=== PATIENT | male | born 1950 | race Caucasian/White ===

== ENCOUNTER 2016-05-01 13:47 | Inpatient (IN) | payer SELFPAY ==
[~2016-05-01] VITALS: Ht 185.4 cm; Wt 96.1 kg
[2016-05-01] VITALS (7 sets, daily range): BP systolic 100–130; BP diastolic 57–78; PULSE 104–112; RESP 20–28; TEMP 98–101.8; O2SAT 95–98
[2016-05-01] MEDS ORDERED: SODIUM CHLORIDE 0.9% FLUSH 5 ML FLUSH IVF PRN (14:00)
[2016-05-01] MEDS ORDERED: SODIUM CHLOR 0.9% 1000 ML INJ 1,000 ML IV ONE ×3 (14:00→14:15)
[2016-05-01] MEDS ORDERED: methylPREDNISolone SOD SUCC 125 MG/2 ML VIAL IVP ONE (14:00)
[2016-05-01] MEDS: RESP: ALBUTEROL 2.5 MG/IPRATROPIUM 0.5 MG NEB (SCH) INH ×2 (14:00→14:09)
--- NOTE | 2016-05-01 14:13 | PD ---
HPI Chief Complaint: AMS Time Seen by Provider: 13:55 Travel History International Travel<30 days: No Contact w/Intl Traveler<30days: No History of Present Illness HPI Patient is a 47-year-old male, Alberto Betancourt, who presents to ER from [facility] from evaluation of altered mental status. As per EMS, they were called by bystanders as bystanders looked into patient's mobile home and saw patient on his couch unresponsive and also saw patient's father on the ground. When EMS arrived on scene, they reported that patient was unresponsive with a pulse ox of 75% and a blood pressure of 74/52. Reports that they started 2 IO lines and started IV fluids and put patient on a non-rebreather. Reports that patient only admitted to alcohol abuse - reports that he did not provide any information other than that. Reports that patient was hypotensive, tachypneic and hypoxic on scene. Patient arrives emergency room with a blood pressure of 130/78 and a pulse ox of 97% on a nonrebreather. Patient reports that he is an alcoholic, reports that he did drink 2-3 beers today. Patient is alert to person at this time, cannot provide history of present illness. PFSH Past Surgical History Surgical History: No Previous Surgery Social History Alcohol Use: Yes Tobacco Use: Yes Allergies-Medications (Allergen,Severity, Reaction): Coded Allergies: No Known Allergies (Unverified , 05/01/16) Review of Systems ROS Limitations: Altered Mental Status General / Constitutional: No: Fever Eyes: No: Visual changes HENT: No: Headaches Cardiovascular: No: Chest Pain or Discomfort Respiratory: No: Shortness of Breath Gastrointestinal: No: Abdominal Pain Genitourinary: No: Dysuria Musculoskeletal: No: Pain Skin: No Rash Neurologic: No: Weakness Psychiatric: No: Depression Endocrine: No: Polydipsia Hematologic/Lymphatic: No: Easy Bruising Physical Exam Narrative GENERAL: moderate distress SKIN: Warm and dry. Patient jaundiced appearing HEAD: Atraumatic. Normocephalic. EYES: Pupils equal and round.positive for scleral icterus. No injection or drainage. ENT: No nasal bleeding or discharge. Mucous membranes pink and moist. NECK: Trachea midline. No JVD. CARDIOVASCULAR: Tachycardic. No murmur appreciated. RESPIRATORY: Increased accessory muscle use. Scattered wheezing. Breath sounds equal bilaterally. GASTROINTESTINAL: Abdomen soft, non-tender, nondistended. Hepatic and splenic margins not palpable. MUSCULOSKELETAL: No obvious deformities. No clubbing. No cyanosis. No edema. NEUROLOGICAL: Awake and alert. PSYCHIATRIC: Alert to person, patient confused Data Data Last Documented VS Vital Signs Date Time Temp Pulse Resp B/P Pulse Ox O2 Delivery O2 Flow Rate FiO2 05/01/16 14:06 Simple Mask 15 05/01/16 13:59 101.8 112 28 130/78 97 Orders Ammonia (05/01/16 13:55) Electrocardiogram (05/01/16 13:55) Complete Blood Count With Diff (05/01/16 13:55) Comprehensive Metabolic Panel (05/01/16 13:55) Prothrombin Time / Inr (Pt) (05/01/16 13:55) Act Partial Throm Time (Ptt) (05/01/16 13:55) Lactic Acid Sepsis Protocol (05/01/16 13:55) Magnesium (Mg) (05/01/16 13:55) Lipase (05/01/16 13:55) Ckmb (Isoenzyme) Profile (05/01/16 13:55) Troponin I (05/01/16 13:55) Urinalysis - C+S If Indicated (05/01/16 13:55) Influenzae A/B Antigen (05/01/16 13:55) Blood Culture (05/01/16 13:55) Chest, Single Ap (05/01/16 13:55) Arterial Blood Gas (Abg) (05/01/16 13:55) Blood Glucose (05/01/16 13:55) Ecg Monitoring (05/01/16 13:55) Iv Access Insert/Monitor (05/01/16 13:55) Cath For Specimen (05/01/16 13:55) Oximetry (05/01/16 13:55) Oxygen Administration (05/01/16 13:55) Ct Brain W/O Iv Contrast(Rout) (05/01/16 13:58) Drug Screen, Random Urine (05/01/16 13:58) Alcohol (Ethanol) (05/01/16 13:58) Salicylates (Aspirin) (05/01/16 13:58) Tylenol (Acetaminophen) (05/01/16 13:58) Sodium Chloride 0.9% Flush (Ns Flush) (05/01/16 14:00) Methylprednisolone So Succ Inj (Solumedr (05/01/16 14:00) Albuterol-Ipratropium Neb (Duoneb Neb) (05/01/16 14:00) Sodium Chlor 0.9% 1000 Ml Inj (Ns 1000 M (05/01/16 14:00) Sodium Chlor 0.9% 1000 Ml Inj (Ns 1000 M (05/01/16 14:00) Acetaminophen Supp (Tylenol Supp) (05/01/16 14:15) Sodium Chlor 0.9% 1000 Ml Inj (Ns 1000 M (05/01/16 14:15) Piperacil-Tazo 3.375 Gm Premix (Zosyn 3. (05/01/16 14:15) Vancomycin Inj (Vancomycin Inj) (05/01/16 14:15) Ct Thorax/ Chest Wo Iv Contras (05/01/16 ) Ct Abd/Pel W/O Iv Contrast (05/01/16 ) Influenzae A/B Antigen (05/01/16 15:36) Admit Order (Ed Use Only) (05/01/16 16:47) Labs Laboratory Tests Test 05/01/16 05/01/16 05/01/16 14:04 14:20 14:35 Blood Gas Puncture Site LT RADIAL Blood Gas Patient Temperature 98.6 Blood Gas HCO3 17 mmol/L Blood Gas Base Excess -6.1 mmol/L Blood Gas Oxygen Saturation 94 % Arterial Blood pH 7.44 Arterial Blood Partial 26 mmHg Pressure CO2 Arterial Blood Partial 86 mmHG Pressure O2 Arterial Blood Oxygen Content 15.1 Vol % Arterial Blood 1.5 % Carboxyhemoglobin Arterial Blood Methemoglobin 1.9 % Blood Gas Hemoglobin 11.4 G/DL Blood Gas Inspired Oxygen 21 % White Blood Count 9.2 TH/MM3 Red Blood Count 3.25 MIL/MM3 Hemoglobin 11.6 GM/DL Hematocrit 36.4 % Mean Corpuscular Volume 111.7 FL Mean Corpuscular Hemoglobin 35.6 PG Mean Corpuscular Hemoglobin 31.9 % Concent Red Cell Distribution Width 15.1 % Platelet Count 141 TH/MM3 Mean Platelet Volume 8.9 FL Neutrophils (%) (Auto) 75.7 % Lymphocytes (%) (Auto) 15.1 % Monocytes (%) (Auto) 8.6 % Eosinophils (%) (Auto) 0.1 % Basophils (%) (Auto) 0.5 % Neutrophils # (Auto) 7.0 TH/MM3 Lymphocytes # (Auto) 1.4 TH/MM3 Monocytes # (Auto) 0.8 TH/MM3 Eosinophils # (Auto) 0.0 TH/MM3 Basophils # (Auto) 0.0 TH/MM3 CBC Comment AUTO DIFF Differential Total Cells 100 Counted Neutrophils % (Manual) 72 % Band Neutrophils % 4 % Lymphocytes % 12 % Monocytes % 5 % Neutrophils # (Manual) 7.6 TH/MM3 Metamyelocytes 4 % Myelocytes 1 % Promyelocytes 2 % Nucleated Red Blood Cells 13 /100 WBC Differential Comment FINAL DIFF MANUAL Platelet Estimate LOW Platelet Morphology Comment NORMAL Ovalocytes 1+ Stomatocytes 3+ Prothrombin Time 21.2 SEC Prothromb Time International 1.9 RATIO Ratio Activated Partial 43.9 SEC Thromboplast Time Sodium Level 136 MEQ/L Potassium Level 4.6 MEQ/L Chloride Level 97 MEQ/L Carbon Dioxide Level 20.1 MEQ/L Anion Gap 19 MEQ/L Blood Urea Nitrogen 35 MG/DL Creatinine 1.39 MG/DL Estimat Glomerular Filtration 44 ML/MIN Rate Random Glucose 100 MG/DL Lactic Acid Level 6.4 mmol/L Calcium Level 8.1 MG/DL Magnesium Level 2.1 MG/DL Total Bilirubin 4.1 MG/DL Aspartate Amino Transf 136 U/L (AST/SGOT) Alanine Aminotransferase 152 U/L (ALT/SGPT) Alkaline Phosphatase 299 U/L Ammonia 81 MCMOL/L Total Creatine Kinase 78 U/L Troponin I 0.03 NG/ML Total Protein 5.0 GM/DL Albumin 2.2 GM/DL Lipase 185 U/L Salicylates Level LESS THAN 1.7 MG/DL Acetaminophen Level LESS THAN 2.0 MCG/ML Ethyl Alcohol Level LESS THAN 3 MG/DL Urine Color DARK-BROWN Urine Turbidity HAZY Urine pH 6.0 Urine Specific [place] 1.027 Urine Protein 30 mg/dL Urine Glucose (UA) TRACE mg/dL Urine Ketones TRACE mg/dL Urine Occult Blood SMALL Urine Nitrite NEG Urine Bilirubin MOD Urine Urobilinogen 2.0 MG/DL Urine Leukocyte Esterase NEG Urine RBC 8 /hpf Urine WBC 1 /hpf Urine Squamous Epithelial <1 /hpf Cells Microscopic Urinalysis Comment CATH-CULT NOT IND MDM Medical Decision Making Medical Screen Exam Complete: Yes Emergency Medical Condition: Yes Interpretation(s) EKG at 1500: Sinus tachycardia at 105 beats minute, QT/QTC 307/368, no acute ST or T-wave changes Vital Signs Date Time Temp Pulse Resp B/P Pulse Ox O2 Delivery O2 Flow Rate FiO2 05/01/16 14:06 Simple Mask 15 05/01/16 13:59 101.8 112 28 130/78 97 Laboratory Tests Test 05/01/16 05/01/16 05/01/16 14:04 14:20 14:35 Blood Gas Puncture Site LT RADIAL Blood Gas Patient Temperature 98.6 Blood Gas HCO3 17 mmol/L (22-26) Blood Gas Base Excess -6.1 mmol/L (-2-2) Blood Gas Oxygen Saturation 94 % (90-100) Arterial Blood pH 7.44 (7.380-7.420) Arterial Blood Partial 26 mmHg (38-42) Pressure CO2 Arterial Blood Partial 86 mmHG Pressure O2 (61-120) Arterial Blood Oxygen Content 15.1 Vol % (12.0-20.0) Arterial Blood 1.5 % (0-4) Carboxyhemoglobin Arterial Blood Methemoglobin 1.9 % (0-2) Blood Gas Hemoglobin 11.4 G/DL (12.0-16.0) Blood Gas Inspired Oxygen 21 % White Blood Count 9.2 TH/MM3 (4.0-11.0) Red Blood Count 3.25 MIL/MM3 (4.50-5.90) Hemoglobin 11.6 GM/DL (13.0-17.0) Hematocrit 36.4 % (39.0-51.0) Mean Corpuscular Volume 111.7 FL (80.0-100.0) Mean Corpuscular Hemoglobin 35.6 PG (27.0-34.0) Mean Corpuscular Hemoglobin 31.9 % Concent (32.0-36.0) Red Cell Distribution Width 15.1 % (11.6-17.2) Platelet Count 141 TH/MM3 (150-450) Mean Platelet Volume 8.9 FL (7.0-11.0) Neutrophils (%) (Auto) 75.7 % (16.0-70.0) Lymphocytes (%) (Auto) 15.1 % (9.0-44.0) Monocytes (%) (Auto) 8.6 % (0.0-8.0) Eosinophils (%) (Auto) 0.1 % (0.0-4.0) Basophils (%) (Auto) 0.5 % (0.0-2.0) Neutrophils # (Auto) 7.0 TH/MM3 (1.8-7.7) Lymphocytes # (Auto) 1.4 TH/MM3 (1.0-4.8) Monocytes # (Auto) 0.8 TH/MM3 (0-0.9) Eosinophils # (Auto) 0.0 TH/MM3 (0-0.4) Basophils # (Auto) 0.0 TH/MM3 (0-0.2) CBC Comment AUTO DIFF Differential Total Cells 100 Counted Neutrophils % (Manual) 72 % (16-70) Band Neutrophils % 4 % (0-6) Lymphocytes % 12 % (9-44) Monocytes % 5 % (0-8) Neutrophils # (Manual) 7.6 TH/MM3 (1.8-7.7) Metamyelocytes 4 % (0-1) Myelocytes 1 % (0-0) Promyelocytes 2 % (0-0) Nucleated Red Blood Cells 13 /100 WBC (0-0) Differential Comment FINAL DIFF MANUAL Platelet Estimate LOW (NORMAL) Platelet Morphology Comment NORMAL (NORMAL) Ovalocytes 1+ (NORMAL) Stomatocytes 3+ (NORMAL) Prothrombin Time 21.2 SEC (9.8-11.6) Prothromb Time International 1.9 RATIO Ratio Activated Partial 43.9 SEC Thromboplast Time (24.3-30.1) Sodium Level 136 MEQ/L (136-145) Potassium Level 4.6 MEQ/L (3.5-5.1) Chloride Level 97 MEQ/L (98-107) Carbon Dioxide Level 20.1 MEQ/L (21.0-32.0) Anion Gap 19 MEQ/L (5-15) Blood Urea Nitrogen 35 MG/DL (7-18) Creatinine 1.39 MG/DL (0.60-1.30) Estimat Glomerular Filtration 44 ML/MIN (>89) Rate Random Glucose 100 MG/DL (74-106) Lactic Acid Level 6.4 mmol/L (0.4-2.0) Calcium Level 8.1 MG/DL (8.5-10.1) Magnesium Level 2.1 MG/DL (1.5-2.5) Total Bilirubin 4.1 MG/DL (0.2-1.0) Aspartate Amino Transf 136 U/L (15-37) (AST/SGOT) Alanine Aminotransferase 152 U/L (12-78) (ALT/SGPT) Alkaline Phosphatase 299 U/L (45-117) Ammonia 81 MCMOL/L (11-32) Total Creatine Kinase 78 U/L (39-308) Troponin I 0.03 NG/ML (0.02-0.05) Total Protein 5.0 GM/DL (6.4-8.2) Albumin 2.2 GM/DL (3.4-5.0) Lipase 185 U/L (73-393) Salicylates Level LESS THAN 1.7 MG/DL (2.8-20.0) Acetaminophen Level LESS THAN 2.0 MCG/ML (10.0-30.0) Ethyl Alcohol Level LESS THAN 3 MG/DL (0-5) Urine Color DARK-BROWN (YELLW/STRAW) Urine Turbidity HAZY (CLEAR) Urine pH 6.0 (5.0-8.5) Urine Specific [place] 1.027 (1.002-1.035) Urine Protein 30 mg/dL (NEG-TRACE) Urine Glucose (UA) TRACE mg/dL (NEG) Urine Ketones TRACE mg/dL (NEG) Urine Occult Blood SMALL (NEG) Urine Nitrite NEG (NEG) Urine Bilirubin MOD (NEG) Urine Urobilinogen 2.0 MG/DL (LESS THAN 2.0) Urine Leukocyte Esterase NEG (NEG) Urine RBC 8 /hpf (0-3) Urine WBC 1 /hpf (0-5) Urine Squamous Epithelial <1 /hpf (0-5) Cells Microscopic Urinalysis Comment CATH-CULT NOT IND Last Impressions Head CT 05/01/16 1358 Signed Impressions: Service Date/Time: April 15:14 - CONCLUSION: Normal examination. Doe Foote MD Chest X-Ray 05/01/16 1355 Signed Impressions: Service Date/Time: April 14:28 - CONCLUSION: Normal examination. Numerous healed left-sided rib fractures. Doe Foote MD Chest CT 05/01/16 0000 Signed Impressions: Service Date/Time: April 15:18 - CONCLUSION: Some atelectasis both lung bases. Markedly fatty liver. Doe Foote MD Abdomen/Pelvis CT 05/01/16 0000 Signed Impressions: Service Date/Time: April 15:18 - CONCLUSION: The gallbladder hss markedly dense contents may be related to iodinated contrast. The liver is markedly fatty. No evidence of free fluid or solid organ mass. Bladder wall is mildly thickened without focal mass. Doe Foote MD Differential Diagnosis Hepatic encephalopathy, metabolic encephalopathy, COPD exacerbation, electrolyte abnormalities, intracranial hemorrhage, PE, pneumonia, influenza, acute hepatitis, seizure disorder, alcoholism, possible alcohol withdrawal seizures Narrative Course Patient is a 47-year-old male who presents to emergency room from home by [facility] for evaluation of change in mental status with tachypnea, tachycardia and hypoxemia. Patient currently alert and oriented to person, overall patient is confused. Patient is tachycardic, febrile, hypoxic - patient was placed on oxygen upon arrival to the emergency room, was also placed on a electromedical service engineer. Labs as well as lactic acid and ammonia level ordered. CT of the head ordered as well. Patient does have SIRS criteria at this time given this temperature of 101.8, tachycardia and increased respiratory rate, will give with IV fluids and start IV antibiotics Patient has been started on antibiotics. Patient does have a lactic acid of 6.4 , creatinine of 1.39-; pH 7.44 on ABG - lactic acidosis could be secondary to hypovolemia Patient also has an ammonia of 81 and he does have transaminitis - this could be secondary to alcoholic hepatitis Plan to admit patient to medicine service for further workup pt stable for floor, patient conversive, vital signs stable, will admit to medicine service primarily. Case reviewed with Dr. Garcia who accepts pt to service Critical Care Narrative Aggregate critical care time was 30 minutes. Time to perform other separately billable procedures was not included in the critical care time. My time did not include minutes spent treating any other patients simultaneously or on activities that did not directly contribute to the patient's treatment. The services I provided to this patient were to treat and/or prevent clinically significant deterioration that could result in: , decompensation, deterioration I provided critical care services requiring my management, as noted below: Chart data review, documentation time, medication orders and management, vital sign assessments/reviewing monitor data, ordering and reviewing lab tests, ordering and interpreting/reviewing x-rays and diagnostic studies, care of the patient and discussion of the patient with the admitting physicians. Sepsis Criteria SIRS Criteria (2 or more): Temp > 100.9 or < 96.8, Heart rate over 90, RR > 20 or PaCO2 < 32 Severe Sepsis (+one): Hypotension, Hypoperfusion Septic Shock Criteria: Lactic acid >=4 Criteria Outcome: Meets SIRS criteria Diagnosis Primary Impression: Lactic acidosis Additional Impressions: Transaminitis Hyperammonemia Renal insufficiency SIRS (systemic inflammatory response syndrome) impending delirium tremors Admitting Information Admitting Physician Requests: Admit Babs Cordova DO May 01, 2016 14:13 Admitting Information Admitting Physician Requests: Admit Babs Cordova DO May 01, 2016 14:13
[2016-05-01 14:15] LABS: BLOOD GAS BASE EXCESS -6.1 mmol/L (-2-2); BLOOD GAS CARBOXYHEMOGLOBIN 1.5 % (0-4); BLOOD GAS HCO3 17 mmol/L (22-26); BLOOD GAS METHEMOGLOBIN 1.9 % (0-2); BLOOD GAS O2 HGB SATURATION 94 % (90-100); BLOOD GAS OXYGEN CONTENT 15.1 Vol % (12.0-20.0); BLOOD GAS PCO2 26 mmHg (38-42); BLOOD GAS PO2 86 mmHG (61-120); BLOOD GAS TOTAL HGB 11.4 G/DL (12.0-16.0); CRITICAL VALUE NO; DRAW SITE LT RADIAL; FIO2 21 %; NUMBER OF ARTERIAL PUNCTURES 1; STAT YES; TEMP CORR TO 98.6; ULNAR PULSE PRESENT
[2016-05-01] MEDS ORDERED: ACETAMINOPHEN 650 MG SUPP RECTAL ONE (14:15)
[2016-05-01] MEDS ORDERED: PIPERACIL-TAZO 3.375 GM PREMIX 50 ML IV ONE (14:15)
[2016-05-01] MEDS ORDERED: VANCOMYCIN INJ 1,150 MG in SODIUM CHLOR 0.9% 250 ML INJ 250 ML IV ONE (14:15)
[2016-05-01 14:41] LABS: BASOPHIL % 0.5 % (0.0-2.0); EOSINOPHIL % 0.1 % (0.0-4.0); HEMATOCRIT 36.4 % (39.0-51.0); LYMPH % 15.1 % (9.0-44.0); LYMPHOCYTE # 1.4 TH/MM3 (1.0-4.8); MEAN CELL VOLUME 111.7 FL (80.0-100.0); MEAN CORPUSCULAR HEMOGLOBIN 35.6 PG (27.0-34.0); MEAN CORPUSCULAR HGB CONC 31.9 % (32.0-36.0); MONO % 8.6 % (0.0-8.0); NEUT % 75.7 % (16.0-70.0); PLATELET COUNT 141 TH/MM3 (150-450); RED BLOOD COUNT 3.25 MIL/MM3 (4.50-5.90); RED CELL DISTRIBUTION WIDTH 15.1 % (11.6-17.2); WHITE BLOOD COUNT 9.2 TH/MM3 (4.0-11.0)
[2016-05-01 14:43] LABS: HEMO FLAGS AUTO DIFF
[2016-05-01 14:55] LABS: APTT (PATIENT) 43.9 SEC (24.3-30.1); INTERNATIONAL NORMALIZED RATIO 1.9 RATIO; PROTHROMBIN TIME - PATIENT 21.2 SEC (9.8-11.6)
--- NOTE | 2016-05-01 15:12 | RADRPT ---
EXAM DATE/TIME: 05/01/2016 14:28 [facility] COMPARISON: No previous studies available for comparison. INDICATIONS : Patient is short of breath. MEDICAL HISTORY : None. SURGICAL HISTORY : None. ENCOUNTER: Initial ACUITY: 1 day PAIN SCORE: Non-responsive. LOCATION: chest FINDINGS: A single view of the chest demonstrates the lungs to be symmetrically aerated without evidence of mas s, infiltrate or effusion. The cardiomediastinal contours are unremarkable. Osseous structures are intact. CONCLUSION: Normal examination. Numerous healed left-sided rib fractures. Doe Foote MD on May 01, 2016 at 15:10 Board Certified Radiologist. This report was verified electronically.
[2016-05-01 15:22] LABS: BLOOD, URINE SMALL (NEG); COMMENT (UR) CATH-CULT NOT IND; CULTURE IF INDICATED CATH CULTURE NOT IND; GLUCOSE,URINE TRACE mg/dL (NEG); KETONE, URINE TRACE mg/dL (NEG); NITRITE,URINE NEG (NEG); SQUAMOUS EPITHELIAL CELL URINE <1 /hpf (0-5); URINE COLOR DARK-BROWN (YELLW/STRAW)
--- NOTE | 2016-05-01 15:25 | RADRPT ---
EXAM DATE/TIME: 05/01/2016 15:14 [facility] COMPARISON: No previous studies available for comparison. INDICATIONS : Found unresponsive. RADIATION DOSE: 53.98 CTDIvol (mGy) MEDICAL HISTORY : Non-responsive. SURGICAL HISTORY : Non-responsive. ENCOUNTER: Initial ACUITY: 1 day PAIN SCALE: Non-responsive LOCATION: cranial TECHNIQUE: Multiple contiguous axial images were obtained of the head. Using automated exposure control and adj ustment of the mA and/or kV according to patient size, radiation dose was kept as low as reasonably a chievable to obtain optimal diagnostic quality images. FINDINGS: There is marked central and cortical atrophy with dilatation of ventricular and sulcal spaces. There is no parenchymal hemorrhage, acute infarction or mass lesion identified. There are no extra-axial fluid collections appreciated. The posterior fossa is unremarkable with midline fourth ventricle. T he portion of the orbits and paranasal sinuses visualized are unremarkable. CONCLUSION: Normal examination. Doe Foote MD on May 01, 2016 at 15:23 Board Certified Radiologist. This report was verified electronically.
--- NOTE | 2016-05-01 15:36 | RADRPT ---
EXAM DATE/TIME: 05/01/2016 15:18 [facility] COMPARISON: No previous studies available for comparison. INDICATIONS : Found unresponsibe. RADIATION DOSE: 18.46 CTDIvol (mGy) MEDICAL HISTORY : Non-responsive. SURGICAL HISTORY : Non-responsive. ENCOUNTER: Initial ACUITY: 1 day PAIN SCALE: Non-responsive LOCATION: chest TECHNIQUE: Volumetric scanning of the chest was performed. Using automated exposure control and adjustment of t he mA and/or kV according to patient size, radiation dose was kept as low as reasonably achievable to obtain optimal diagnostic quality images. FINDINGS: LUNGS: There is no consolidation or pneumothorax other than minimal atelectasis both lung bases. No concern ing pulmonary nodule is visualized. PLEURAE: There is no pleural thickening or pleural effusion. MEDIASTINUM: The heart and great vessels demonstrate no acute abnormality. There is no mediastinal or hilar lymph adenopathy. AXILLAE: Within normal limits. No lymphadenopathy. MUSCULOSKELETAL: Within normal limits for patient age. Multiple healed left-sided rib fractures MISCELLANEOUS: The visualized upper abdominal organs demonstrate no acute abnormality. CONCLUSION: Some atelectasis both lung bases. Markedly fatty liver. Doe Foote MD on May 01, 2016 at 15:34 Board Certified Radiologist. This report was verified electronically.
[2016-05-01 15:39] LABS: ACETAMINOPHEN LESS THAN 2.0 MCG/ML (10.0-30.0); ALKALINE PHOSPHATASE 299 U/L (45-117); ALT (GPT) 152 U/L (12-78); ANION GAP 19 MEQ/L (5-15); AST (GOT) 136 U/L (15-37); BICARBONATE 20.1 MEQ/L (21.0-32.0); BLOOD UREA NITROGEN 35 MG/DL (7-18); CHLORIDE 97 MEQ/L (98-107); GLOMERULAR FILTRATION RATE 44 ML/MIN (>89); MAGNESIUM 2.1 MG/DL (1.5-2.5); POTASSIUM 4.6 MEQ/L (3.5-5.1); SODIUM (NA) 136 MEQ/L (136-145); TOTAL BILIRUBIN ADULT 4.1 MG/DL (0.2-1.0)
--- NOTE | 2016-05-01 15:39 | RADRPT ---
EXAM DATE/TIME: 05/01/2016 15:18 [facility] COMPARISON: No previous studies available for comparison. INDICATIONS : Found unresponsive. ORAL CONTRAST: No oral contrast ingested. RADIATION DOSE: 18.46 CTDIvol (mGy) MEDICAL HISTORY : Non-responsive. SURGICAL HISTORY : Non-responsive. ENCOUNTER: Initial ACUITY: 1 day PAIN SCALE: Non-responsive LOCATION: Bilateral lower quadrant TECHNIQUE: Volumetric scanning of the abdomen and pelvis was performed. Using automated exposure control and ad justment of the mA and/or kV according to patient size, radiation dose was kept as low as reasonably achievable to obtain optimal diagnostic quality images. FINDINGS: LOWER LUNGS: The visualized lower lungs are clear. LIVER: Homogeneously lower density without lesion. There is no dilation of the biliary tree. No calcified gallstones however the gallbladder contents are markedly dense. SPLEEN: Normal size without lesion. PANCREAS: Within normal limits. KIDNEYS: Normal in size and shape. There is no mass, stone, or hydronephrosis. ADRENAL GLANDS: Within normal limits. VASCULAR: There is no aortic aneurysm. BOWEL/MESENTERY: The stomach, small bowel, and colon demonstrate no acute abnormality. There is no free intraperitone al air or fluid. ABDOMINAL WALL: Within normal limits. RETROPERITONEUM: There is no lymphadenopathy. BLADDER: Questionable wall thickening without evidence of mass. REPRODUCTIVE: Within normal limits. INGUINAL: There is no lymphadenopathy or hernia. MUSCULOSKELETAL: Within normal limits for patient age. Left SI joint is fused CONCLUSION: The gallbladder hss markedly dense contents may be related to iodinated contrast. The liver is marke dly fatty. No evidence of free fluid or solid organ mass. Bladder wall is mildly thickened without f ocal mass. Doe Foote MD on May 01, 2016 at 15:35 Board Certified Radiologist. This report was verified electronically.
[2016-05-01 15:41] LABS: CREATINE KINASE 78 U/L (39-308)
[2016-05-01 15:44] LABS: BANDS 4 % (0-6); CORRECTED NUCLEATED RBC 13 /100 WBC (0-0); METAMYELOCYTES 4 % (0-1); MYELOCYTES 1 % (0-0); NEUTROPHIL # MANUAL DIFF 7.6 TH/MM3 (1.8-7.7); POLYS (SEG NEUTROPHILS) 72 % (16-70); PROMYELOCYTES 2 % (0-0); WBC DIFF SAMPLE 100
[2016-05-01 15:45] LABS: OVALOCYTES 1+ (NORMAL); PLATELET ESTIMATE SMEAR LOW (NORMAL); PLATELET MORPHOLOGY NORMAL (NORMAL); SCAN/DIFF FINAL DIFF MANUAL; STOMATOCYTES 3+ (NORMAL)
[2016-05-01 16:28] LABS: LACTIC ACID GHOST NOT REPORTABLE
[2016-05-01] MEDS ORDERED: SODIUM PHOSPHATE INJ 30 MMOL in SODIUM CHLOR 0.9% 250 ML INJ 240 ML IV PRN (17:00)
[2016-05-01] MEDS ORDERED: POTASSIUM CHLOR 40 MEQ PREMIX 100 ML IV PRN ×2 (17:00)
[2016-05-01] MEDS ORDERED: POTASSIUM PHOSPHATE MONOBASIC 500 MG TAB PO PRN (17:00)
[2016-05-01] MEDS ORDERED: POTASSIUM PHOSPHATE INJ 30 MMOL in SODIUM CHLOR 0.9% 250 ML INJ 250 ML IV PRN (17:00)
[2016-05-01] MEDS ORDERED: MAGNESIUM OXIDE 400 MG TAB PO PRN (17:00)
[2016-05-01] MEDS ORDERED: DEXTROSE 50% IN WATER 50 ML VIAL(D50) IV PUSH PRN (17:00)
[2016-05-01] MEDS ORDERED: POTASSIUM CHLOR 20 MEQ PREMIX 100 ML IV PRN ×2 (17:00)
[2016-05-01] MEDS ORDERED: MAGNESIUM SULFATE INJ 2 GM in SODIUM CHLORIDE 0.9% INJ 96 ML IV PRN (17:00)
[2016-05-01] MEDS ORDERED: POTASSIUM PHOSPHATE MONOBASIC 500 MG TAB PO/TUBE PRN (17:00)
[2016-05-01] MEDS ORDERED: MAGNESIUM SULFATE INJ 4 GM in SODIUM CHLORIDE 0.9% INJ 92 ML IV PRN (17:00)
[2016-05-01] MEDS ORDERED: POTASSIUM CL 40 MEQ/30 ML LIQ UDC PO/TUBE PRN ×2 (17:00)
[2016-05-01] MEDS: INSULIN NovoLIN REGULAR SUPPLEMENTAL SCALE SQ SCH (18:00)
--- NOTE | 2016-05-01 18:00 | HHI.HP ---
[facility] Service [facility] ([place], [place])ists Primary Care Physician No Primary Care Physician Admission Diagnosis Lactic acidosis, encephalopathy Diagnoses: Chief Complaint: AMS Travel History International Travel<30 Days: No Contact w/Intl Traveler <30 Da: No Traveled to Known Affected Are: No History of Present Illness 65-year-old male with alcohol and tobacco abuse but no diagnosed past medical history, presents as a Germain Stockton after being found down in his home today. Per EMS, 911 was called as bystanders looked into the patient's mobile home, saw the patient on his couch, unresponsive, and his father was also unresponsive on the floor. Upon EMS arrival, patient initially unresponsive with pulse ox 75%, BP 74/52. He was given IVF boluses and placed on nonrebreather. Since his arrival to the ER, his mentation has been waxing/waning, current he is awake, alert, but oriented to person/place only, not date/month/year. He reports his name is Marcelino Munroe . : 1950. He reports he came to the hospital because he kept falling down which started on Friday 04/28. Denies hitting his head. Denies loss of consciousness. Denies any headache or blurred vision. He reports some mild shortness of breath, but denies chest pain. Denies any nausea/ vomiting/abdominal pain/diarrhea constipation. He states he's been eating well prior to arrival. His last drink was Sunday 04/30, had 3-4 beers. The patient has no other medical complaints at this time. Review of Systems Constitutional: DENIES: Fever, Chills, Dizziness Endocrine: DENIES: Polydipsia, Polyuria, Polyphagia Eyes: DENIES: Blurred vision, Vision loss, Double Vision Ears, nose, mouth, throat: DENIES: Throat pain, Running Nose, Odynophagia Respiratory: COMPLAINS OF: Shortness of breath, DENIES: Cough, Sputum production Cardiovascular: DENIES: Chest pain, Palpitations, Lower Extremity Edema Gastrointestinal: DENIES: Abdominal pain, Constipation, Diarrhea, Nausea, Vomiting Genitourinary: DENIES: Urinary frequency, Urgency, Dysuria Musculoskeletal: DENIES: Joint pain, Back pain, Neck pain Integumentary: DENIES: Abnormal pigmentation, Pruritus, Rash Hematologic/lymphatic: DENIES: Bruising, Lymphadenopathy Immunologic/allergic: DENIES: Eczema, Urticaria Neurologic: DENIES: Abnormal gait, Headache, Localized weakness, Paresthesias Psychiatric: DENIES: Anxiety, Depression Past Family Social History Past Medical History Denies any diagnosed medical problems including heart disease, diabetes, HTN, HLD, liver/kidney problems. Past Surgical History Tonsillectomy Denies any other prior surgeries. Reported Medications Denies taking any medications on a regular basis. Allergies: Coded Allergies: No Known Allergies (Unverified , 05/01/16) Active Ordered Medications Current Medications Medications (Trade) Dose Ordered Sig/Pavel Route Start Time Stop Time Status Last Admin (D50w (Vial) Inj) 25 ml UNSCH PRN IV PUSH 05/01/16 17:00 (NovoLIN R SUPPLEMENTAL SCALE) 1 Q6HR SQ 05/01/16 18:00 Magnesium Oxide 800 mg 800 mg UNSCH PRN PO 05/01/16 17:00 Magnesium Sulfate 4 gm/Sodium Chloride 100 ml @ 50 mls/hr UNSCH PRN IV 05/01/16 17:00 Magnesium Sulfate 2 gm/Sodium Chloride 100 ml @ 50 mls/hr UNSCH PRN IV 05/01/16 17:00 Potassium Chloride 100 ml @ 50 mls/hr Q2H PRN IV 05/01/16 17:00 Potassium Chloride 100 ml @ 50 mls/hr Q2H PRN IV 05/01/16 17:00 Potassium Chloride 100 ml @ 50 mls/hr Q2H PRN IV 05/01/16 17:00 (KCl 40 Meq Premix Inj) 100 ml @ 25 mls/hr UNSCH PRN IV 05/01/16 17:00 (KCl 40 Meq/30 ml Liq) 40 meq UNSCH PRN PO/TUBE 05/01/16 17:00 (KCl 40 Meq/30 ml Liq) 40 meq UNSCH PRN PO/TUBE 05/01/16 17:00 (K-Phos) 2,000 mg Q4H PRN PO 05/01/16 17:00 Potassium Phosphate 2000 mg 2,000 mg UNSCH PRN PO/TUBE 05/01/16 17:00 Potassium Phosphate 30 mmol/ Sodium Chloride 260 ml @ 42 mls/hr UNSCH PRN IV 05/01/16 17:00 (Sodium Phosphate Inj/NS 250 ml Inj) 250 ml @ 42 mls/hr UNSCH PRN IV 05/01/16 17:00 Family History Mother with lymphoma, Father with CVA Social History Smokes tobacco 1.5-2 PPD since teenage years Drinks alcohol, usually 3-4 beers a day Denies any other illicit drug use. Lives with his father Ambulates independently. Physical Exam Vital Signs Vital Signs Date Time Temp Pulse Resp B/P Pulse Ox O2 Delivery O2 Flow Rate FiO2 05/01/16 14:06 Simple Mask 15 05/01/16 13:59 101.8 112 28 130/78 97 Physical Exam GENERAL: Well-nourished, well-developed unkempt appearing male patient in NAD. SKIN: Warm and dry. No rash. Jaundiced. HEAD: Normocephalic. Atraumatic. EYES: Pupils equal and round. +scleral icterus. No injection or drainage. ENT: No nasal bleeding or discharge. Mucous membranes dry. Chapped lips. Poor dentition. NECK: Supple. Trachea midline. CARDIOVASCULAR: Trachycardic, Regular rhythm. S1, S2 noted. No murmur appreciated. RESPIRATORY: No accessory muscle use. Clear to auscultation. Breath sounds equal bilaterally. GASTROINTESTINAL: Abdomen soft, non-tender, nondistended. Normoactive bowel sounds x4. MUSCULOSKELETAL: No obvious deformities. Extremities without clubbing, cyanosis , or edema. NEUROLOGICAL: Awake and alert, oriented to person/place but not time. No obvious cranial nerve deficits. Motor grossly within normal limits. Normal speech. PSYCHIATRIC: Appropriate mood and affect; insight and judgment fair to normal. Laboratory Laboratory Tests Test 05/01/16 05/01/16 05/01/16 14:04 14:20 14:35 Blood Gas Puncture Site LT RADIAL Blood Gas Patient Temperature 98.6 Blood Gas HCO3 17 Blood Gas Base Excess -6.1 Blood Gas Oxygen Saturation 94 Arterial Blood pH 7.44 Arterial Blood Partial 26 Pressure CO2 Arterial Blood Partial 86 Pressure O2 Arterial Blood Oxygen Content 15.1 Arterial Blood 1.5 Carboxyhemoglobin Arterial Blood Methemoglobin 1.9 Blood Gas Hemoglobin 11.4 Blood Gas Inspired Oxygen 21 White Blood Count 9.2 Red Blood Count 3.25 Hemoglobin 11.6 Hematocrit 36.4 Mean Corpuscular Volume 111.7 Mean Corpuscular Hemoglobin 35.6 Mean Corpuscular Hemoglobin 31.9 Concent Red Cell Distribution Width 15.1 Platelet Count 141 Mean Platelet Volume 8.9 Neutrophils (%) (Auto) 75.7 Lymphocytes (%) (Auto) 15.1 Monocytes (%) (Auto) 8.6 Eosinophils (%) (Auto) 0.1 Basophils (%) (Auto) 0.5 Neutrophils # (Auto) 7.0 Lymphocytes # (Auto) 1.4 Monocytes # (Auto) 0.8 Eosinophils # (Auto) 0.0 Basophils # (Auto) 0.0 CBC Comment AUTO DIFF Differential Total Cells 100 Counted Neutrophils % (Manual) 72 Band Neutrophils % 4 Lymphocytes % 12 Monocytes % 5 Neutrophils # (Manual) 7.6 Metamyelocytes 4 Myelocytes 1 Promyelocytes 2 Nucleated Red Blood Cells 13 Differential Comment FINAL DIFF MANUAL Platelet Estimate LOW Platelet Morphology Comment NORMAL Ovalocytes 1+ Stomatocytes 3+ Prothrombin Time 21.2 Prothromb Time International 1.9 Ratio Activated Partial 43.9 Thromboplast Time Sodium Level 136 Potassium Level 4.6 Chloride Level 97 Carbon Dioxide Level 20.1 Anion Gap 19 Blood Urea Nitrogen 35 Creatinine 1.39 Estimat Glomerular Filtration 44 Rate Random Glucose 100 Lactic Acid Level 6.4 Calcium Level 8.1 Magnesium Level 2.1 Total Bilirubin 4.1 Aspartate Amino Transf 136 (AST/SGOT) Alanine Aminotransferase 152 (ALT/SGPT) Alkaline Phosphatase 299 Ammonia 81 Total Creatine Kinase 78 Troponin I 0.03 Total Protein 5.0 Albumin 2.2 Lipase 185 Salicylates Level LESS THAN 1.7 Acetaminophen Level LESS THAN 2.0 Ethyl Alcohol Level LESS THAN 3 Urine Color DARK-BROWN Urine Turbidity HAZY Urine pH 6.0 Urine Specific [place] 1.027 Urine Protein 30 Urine Glucose (UA) TRACE Urine Ketones TRACE Urine Occult Blood SMALL Urine Nitrite NEG Urine Bilirubin MOD Urine Urobilinogen 2.0 Urine Leukocyte Esterase NEG Urine RBC 8 Urine WBC 1 Urine Squamous Epithelial <1 Cells Microscopic Urinalysis Comment CATH-CULT NOT IND Date/Time Procedure Status Source Growth 05/01/16 14:20 Aerobic Blood Culture Received Blood Peripheral Pending 05/01/16 14:20 Anaerobic Blood Culture Received Blood Peripheral Pending Result Diagram: 05/01/16 1420 05/01/16 1420 Imaging Last Impressions Head CT 05/01/16 1358 Signed Impressions: Service Date/Time: April 15:14 - CONCLUSION: Normal examination. Doe Foote MD Chest X-Ray 05/01/16 1355 Signed Impressions: Service Date/Time: April 14:28 - CONCLUSION: Normal examination. Numerous healed left-sided rib fractures. Doe Foote MD Chest CT 05/01/16 0000 Signed Impressions: Service Date/Time: April 15:18 - CONCLUSION: Some atelectasis both lung bases. Markedly fatty liver. Doe Foote MD Abdomen/Pelvis CT 05/01/16 0000 Signed Impressions: Service Date/Time: April 15:18 - CONCLUSION: The gallbladder hss markedly dense contents may be related to iodinated contrast. The liver is markedly fatty. No evidence of free fluid or solid organ mass. Bladder wall is mildly thickened without focal mass. Doe Foote MD Assessment and Plan Problem List: (1) Altered mental status ICD Code: R41.82 Status: Acute (2) Unresponsive episode ICD Code: R41.89 Status: Acute (3) SIRS (systemic inflammatory response syndrome) ICD Code: R65.10 Status: Acute (4) Transaminitis ICD Code: R74.0 Status: Acute (5) Lactic acidosis ICD Code: E87.2 Status: Acute (6) Hyperammonemia ICD Code: E72.20 Status: Acute (7) ALY (acute kidney injury) ICD Code: N17.9 Status: Acute Assessment and Plan 65-year-old male Marcelino MunroeJr. : 1950, with hx of alcohol and tobacco abuse but no diagnosed PMH, presents as a Germain [place] after being found down in his home today. Per EMS, 911 was called as bystanders looked into the patient's mobile home, saw the patient on his couch, unresponsive, and his father was also unresponsive on the floor. Upon EMS arrival, patient initially unresponsive with pulse ox 75%, BP 74/52, s/p IVF boluses and NRB, now awake, alert, but intermittently confused. AMS/Unresponsive Episode: Unclear etiology, suspect multifactorial with SIRS/ infection and hepatic encephalopathy. Head CT unremarkable. CXR/Chest CT with no acute findings. Check UDS. Neuro checks. Monitor on telemetry. Initial troponin/CPK unremarkable, continue to trend cardiac enzymes/EKG. Patient reporting recent frequent falls since 04/28, consult PT. SIRS: tachycardic, fever Tmax 101.8, lactic acid 6.4. No leukocytosis. Unclear source. CXR and Chest CT with no acute findings. UA clear. Blood cultures collected. Check for infleunza. S/p IV Vanco/Zosyn in the ED, will continue. Follow up on cultures. Lactic Acidosis: with lactic acid 6.4, hypotension en route with BP 74/52. Infectious work up as above, also possibly related to hypovolemia/dehydration. S /p IVF boluses, continue IVF at 100cc/hr. Lactic acidosis protocol. Monitor labs. Hepatic Encephalopathy: Ammonia elevated at 81. Start on lactulose 30ml bid. GI consulted, see below. Transaminitis/Jaundice, possible Alcoholic Hepatitis: LFTs elevated - T.bili 4.1 , AST 136, ALT 152, Alk Phos 299. Abd/Pelvis CT showed gallbladder has markedly dense contents may be related to iodinated contrast; liver markedly fatty; no evidence of free fluid/mass. Consult gastroenterology. Trend LFTs. Check hepatitis panel. ALY: Cr 1.39, no previous labs to compare, suspect ALY with recent dehydration/ poor oral intake. Continue IVF. Repeat BMP in am. Alcohol Abuse: last drink 04/30. Drinks 3-4 beers daily. Possible component of alcohol withdrawal. Start on IV thiamine/folate/MV. CIWA protocol. Fall/Seizure precautions. Tobacco Abuse: counseled on cessation. Nicotine patch prn. Coagulopathy: INR 1.9, not on anticoagulation, likely related to chronic alcohol abuse/liver disease. Monitor, avoid further chemical prophylaxis. Macrocytic Anemia/Thrombocytopenia: likely secondary to alcohol abuse/liver disease. Monitor CBC. DVT Prophylaxis: teds/SCDs Written by Caterina Reynaga, acting as scribe for Dr. Garcia on 05/01/16 at 18: 39. The documentation accurately reflects the work performed [id number] by me on at 18:39. Code Status Full Code for now, patient does not appear to have the capacity to decide code status at this time. Discussed Condition With Patient, ER MD, EVENT SPECIALIST FOOD DEMONSTRATOR Physician Certification 2 Midnight Certification Type: Admission for Inpatient Services Order for Inpatient Services The services are ordered in accordance with Medicare regulations or non- Medicare payer requirements, as applicable. In the case of services not specified as inpatient-only, they are appropriately provided as inpatient services in accordance with the 2-midnight benchmark. Estimated LOS (days): 3 days is the estimated time the patient will need to remain in the hospital, assuming treatment plan goals are met and no additional complications. Post-Hospital Plan: Not yet determined Caterina Reynaga PA-C May 01, 2016 18:00 Mateo Garcia MD May 01, 2016 18:57
[2016-05-01] MEDS ORDERED: MAGNESIUM HYDROXIDE SUSP 30 ML CUP PO PRN (18:15)
[2016-05-01] MEDS ORDERED: LORazepam 1 MG TAB PO PRN (18:15)
[2016-05-01] MEDS ORDERED: Vancomycin Consult Pharmacy 1 EA OTHER SCH (18:15)
[2016-05-01] MEDS ORDERED: LORazepam 2 MG TAB PO PRN (18:15)
[2016-05-01] MEDS ORDERED: NALOXONE HCL 0.4 MG/ML AMP IV PRN (18:15)
[2016-05-01] MEDS ORDERED: FLUMAZENIL 0.5 MG/5 ML VIAL IV PUSH PRN (18:15)
[2016-05-01] MEDS ORDERED: LORazepam 2 MG/ML VIAL IV PUSH PRN ×4 (18:15)
[2016-05-01] MEDS ORDERED: ONDANSETRON HCL 4 MG/2 ML VIAL IVP PRN (18:15)
[2016-05-01] MEDS ORDERED: SODIUM CHLORIDE 0.9% FLUSH 5 ML FLUSH FLUSH PRN (18:15)
[2016-05-01] MEDS ORDERED: NICOTINE 21 MG/24 HR PATCH TD PRN (18:45)
[2016-05-01] MEDS: SODIUM CHLOR 0.9% 1000 ML INJ 1,000 ML IV SCH (19:43)
[2016-05-01] MEDS: SODIUM CHLORIDE 0.9% FLUSH 5 ML FLUSH FLUSH SCH (19:43)
[2016-05-01] MEDS: THIAMINE INJ 100 MG in SODIUM CHLORIDE 0.9% INJ 100 ML IV SCH (19:43)
[2016-05-01] MEDS: LACTULOSE SYRUP 20 GM/30 ML CUP PO SCH (21:00)
[2016-05-01] MEDS: MULTIVITAMIN INJ 10 ML, FOLIC ACID INJ 1 MG in SODIUM CHLORID 0.9% 500 ML INJ 500 ML IV SCH (21:11)
[2016-05-01 21:47] LABS: LACTIC ACID GHOST NOT REPORTABLE
[2016-05-02] VITALS (20 sets, daily range): BP systolic 98–128; BP diastolic 57–67; PULSE 103–119; RESP 21–26; TEMP 97.5–102.7; O2SAT 92–96
[2016-05-02] MEDS: PIPERACIL-TAZO 3.375 GM PREMIX 50 ML IV SCH ×4 (00:53→21:00)
[2016-05-02] MEDS: LACTULOSE SYRUP 20 GM/30 ML CUP PO SCH ×4 (01:37→23:16)
[2016-05-02 02:02] LABS: AMPHETAMINE, URINE NEG (NEG); BARBITURATES, URINE NEG (NEG); COCAINE, URINE NEG (NEG)
[2016-05-02] MEDS: INSULIN NovoLIN REGULAR SUPPLEMENTAL SCALE SQ SCH ×4 (06:00→18:00)
[2016-05-02 06:38] LABS: AUTOMATED NEUTROPHIL # 7.1 TH/MM3 (1.8-7.7); BASOPHIL # 0.1 TH/MM3 (0-0.2); BASOPHIL % 0.6 % (0.0-2.0); EOSINOPHIL # 0.1 TH/MM3 (0-0.4); EOSINOPHIL % 0.8 % (0.0-4.0); HEMATOCRIT 32.9 % (39.0-51.0); LYMPHOCYTE # 1.4 TH/MM3 (1.0-4.8); MEAN CELL VOLUME 110.4 FL (80.0-100.0); MEAN CORPUSCULAR HEMOGLOBIN 37.2 PG (27.0-34.0); MEAN CORPUSCULAR HGB CONC 33.7 % (32.0-36.0); MONO % 6.3 % (0.0-8.0); NEUT % 77.3 % (16.0-70.0); PLATELET COUNT 122 TH/MM3 (150-450); RED BLOOD COUNT 2.98 MIL/MM3 (4.50-5.90); RED CELL DISTRIBUTION WIDTH 15.5 % (11.6-17.2); WHITE BLOOD COUNT 9.2 TH/MM3 (4.0-11.0)
[2016-05-02 06:39] LABS: HEMO FLAGS AUTO DIFF
[2016-05-02 06:59] LABS: ALKALINE PHOSPHATASE 265 U/L (45-117); ALT (GPT) 149 U/L (12-78); ANION GAP 13 MEQ/L (5-15); BICARBONATE 22.4 MEQ/L (21.0-32.0); BLOOD UREA NITROGEN 35 MG/DL (7-18); CHLORIDE 106 MEQ/L (98-107); GLOMERULAR FILTRATION RATE 54 ML/MIN (>89); SODIUM (NA) 141 MEQ/L (136-145); TOTAL BILIRUBIN ADULT 5.1 MG/DL (0.2-1.0)
[2016-05-02 07:02] LABS: AST (GOT) 155 U/L (15-37); POTASSIUM 4.1 MEQ/L (3.5-5.1)
[2016-05-02 07:58] LABS: BANDS 12 % (0-6); CORRECTED NUCLEATED RBC 26 /100 WBC (0-0); MYELOCYTES 2 % (0-0); NEUTROPHIL # MANUAL DIFF 7.7 TH/MM3 (1.8-7.7); POLYS (SEG NEUTROPHILS) 70 % (16-70); WBC DIFF SAMPLE 100
[2016-05-02] MEDS ORDERED: VANCOMYCIN 1,000 MG/NS 250 ML IV SCH ×2 (08:00)
[2016-05-02 08:01] LABS: PLATELET ESTIMATE SMEAR LOW (NORMAL); PLATELET MORPHOLOGY NORMAL (NORMAL); SCAN/DIFF FINAL DIFF MANUAL
[2016-05-02 08:03] LABS: TARGET CELLS 1+ (NORMAL)
[2016-05-02] MEDS: SODIUM CHLORIDE 0.9% FLUSH 5 ML FLUSH FLUSH SCH ×2 (09:57→21:00)
--- NOTE | 2016-05-02 10:33 | PD.CONS ---
HPI History of Present Illness This is a 65-year-old male by the name of Marcelino LudwigJr lakia. : 1950 who was brought here by EMS after was found on his couch, unresponsive by bystanders and was admitted for AMS, and SIRS. He was hypotensive, hypoxic, elevated ammonia, transaminitis and lactic acid. Patient is currently very lethargic, not able to provided any information, couldn't open his eyes through the entire physical exam, therefore, HPI was obtained from EMR. Patient with alcohol and tobacco abuse , last drink was Sunday 04/30, had 3-4 beers. No reported nausea/vomiting/abdominal pain/diarrhea constipation. CT showed The gallbladder markedly dense contents may be related to iodinated contrast. The liver is markedly fatty. No evidence of free fluid or solid organ mass. Bladder wall is mildly thickened without focal mass. AST 155 [id number] bili 5.1, H&H 11.1/32.9, PLt 122. Toxicology negative ,hepatitis panel pending. (Devi Ro) PFSH Past Medical History per EMR Denies any diagnosed medical problems including heart disease, diabetes, HTN, HLD, liver/kidney problems. Past Surgical History Per EMR Tonsillectomy Denies any other prior surgeries. (Devi Ro) Coded Allergies: No Known Allergies (Unverified , 05/01/16) Medications Current Medications Medications (Trade) Dose Ordered Sig/Pavel Route Start Time Stop Time Status Last Admin (D50w (Vial) Inj) 25 ml UNSCH PRN IV PUSH 05/01/16 17:00 (NovoLIN R SUPPLEMENTAL SCALE) 1 Q6HR SQ 05/01/16 18:00 Magnesium Oxide 800 mg 800 mg UNSCH PRN PO 05/01/16 17:00 Magnesium Sulfate 4 gm/Sodium Chloride 100 ml @ 50 mls/hr UNSCH PRN IV 05/01/16 17:00 Magnesium Sulfate 2 gm/Sodium Chloride 100 ml @ 50 mls/hr UNSCH PRN IV 05/01/16 17:00 Potassium Chloride 100 ml @ 50 mls/hr Q2H PRN IV 05/01/16 17:00 Potassium Chloride 100 ml @ 50 mls/hr Q2H PRN IV 05/01/16 17:00 Potassium Chloride 100 ml @ 50 mls/hr Q2H PRN IV 05/01/16 17:00 (KCl 40 Meq Premix Inj) 100 ml @ 25 mls/hr UNSCH PRN IV 05/01/16 17:00 (KCl 40 Meq/30 ml Liq) 40 meq UNSCH PRN PO/TUBE 05/01/16 17:00 (KCl 40 Meq/30 ml Liq) 40 meq UNSCH PRN PO/TUBE 05/01/16 17:00 (K-Phos) 2,000 mg Q4H PRN PO 05/01/16 17:00 Potassium Phosphate 2000 mg 2,000 mg UNSCH PRN PO/TUBE 05/01/16 17:00 Potassium Phosphate 30 mmol/ Sodium Chloride 260 ml @ 42 mls/hr UNSCH PRN IV 05/01/16 17:00 Sodium Phosphate 30 mmol/Sodium Chloride 250 ml @ 42 mls/hr UNSCH PRN IV 05/01/16 17:00 (NS 1000 ml Inj) 1,000 ml @ 100 mls/hr Q10H IV 05/01/16 18:05 05/01/16 19:43 (NS Flush) 2 ml UNSCH PRN FLUSH 05/01/16 18:15 (NS Flush) 2 ml BID FLUSH 05/01/16 21:00 05/02/16 09:57 (Zofran Inj) 4 mg Q6H PRN IVP 05/01/16 18:15 (Milk Of Magnesia Liq) 30 ml Q12H PRN PO 05/01/16 18:15 (Narcan Inj) 0.4 mg UNSCH PRN IV 05/01/16 18:15 (Romazicon Inj) 0.2 mg Q1M PRN IV PUSH 05/01/16 18:15 (Ativan) 1 mg Q4H PRN PO 05/01/16 18:15 05/02/16 05:51 (Ativan Inj) 1 mg Q4H PRN IV PUSH 05/01/16 18:15 (Ativan) 2 mg Q2H PRN PO 05/01/16 18:15 (Ativan Inj) 2 mg Q2H PRN IV PUSH 05/01/16 18:15 (Ativan Inj) 2 mg Q1H PRN IV PUSH 05/01/16 18:15 (Ativan Inj) 2 mg Q15M PRN IV PUSH 05/01/16 18:15 Lactulose 30 ml 30 ml BID PO 05/01/16 21:00 05/02/16 08:11 Pharmacy Profile Note 0 ml @ 0 mls/hr UNSCH OTHER 05/01/16 18:15 Piperacillin Sod/ Tazobactam Sod 50 ml @ 100 mls/hr Q8H IV 05/02/16 01:00 05/02/16 08:11 (Mvi-12 Inj/ Folvite Inj/NS 500 ml Inj) 510.2 ml @ 125 mls/hr Q24H IV 05/01/16 21:00 05/06/16 20:59 05/01/16 21:11 Thiamine HCl 100 mg 100 mg DAILY PO 05/05/16 09:00 (Thiamine Inj/NS Inj) 101 ml @ 100 mls/hr Q24H IV 05/01/16 20:00 05/04/16 19:59 05/01/16 19:43 Nicotine 1 patch 1 patch DAILY PRN TD 05/01/16 18:45 (Vancomycin Inj/ NS 250 ml Inj) 250 ml @ 250 mls/hr Q18H IV 05/02/16 08:00 05/02/16 08:11 Miscellaneous Information SPECIFIC LAB TO BE CRISTELA... ONCE ONCE XX 05/03/16 19:45 05/03/16 19:46 Family History Per EMR Mother with lymphoma, Father with CVA Social History Per EMR Smokes tobacco 1.5-2 PPD since teenage years Drinks alcohol, usually 3-4 beers a day Denies any other illicit drug use. Lives with his father Ambulates independently. (Devi Ro) Review of Systems ROS Not able to obtain ROS, patient is very lethargic (Devi Ro) GI Exam Vitals I&O Vital Signs Date Time Temp Pulse Resp B/P Pulse Ox O2 Delivery O2 Flow Rate FiO2 05/02/16 09:02 92 Nasal Cannula 2.00 05/02/16 07:00 100.2 111 24 124/67 95 05/02/16 06:00 114 05/02/16 05:00 112 05/02/16 04:00 114 05/02/16 03:00 97.5 119 24 98/ 96 05/02/16 01:17 98.8 112 21 107/57 93 Nasal Cannula 2 05/01/16 23:02 108 20 101/57 95 Nasal Cannula 2 05/01/16 21:01 107 20 116/59 95 Nasal Cannula 2 05/01/16 20:10 104 22 100/57 95 Nasal Cannula 2 05/01/16 19:47 98 Nasal Cannula 2.00 05/01/16 19:06 98.0 105 20 107/60 98 Nasal Cannula 2 05/01/16 18:13 Nasal Cannula 2 05/01/16 18:10 100.5 110 24 121/67 96 Nasal Cannula 2 05/01/16 18:08 96 Nasal Cannula 2 05/01/16 14:06 Simple Mask 15 05/01/16 13:59 101.8 112 28 130/78 97 I/O 05/01/16 05/01/16 05/01/16 05/02/16 05/02/16 05/02/16 07:00 15:00 23:00 07:00 15:00 23:00 Intake Total 1365 ml Balance 1365 ml Intake Oral 240 ml IV Total 1125 ml # Bowel Movements 2 Imaging Last Impressions Head CT 05/01/16 1358 Signed Impressions: Service Date/Time: April 15:14 - CONCLUSION: Normal examination. Doe Foote MD Chest X-Ray 05/01/16 1355 Signed Impressions: Service Date/Time: April 14:28 - CONCLUSION: Normal examination. Numerous healed left-sided rib fractures. Doe Foote MD Chest CT 05/01/16 0000 Signed Impressions: Service Date/Time: April 15:18 - CONCLUSION: Some atelectasis both lung bases. Markedly fatty liver. Doe Foote MD Abdomen/Pelvis CT 05/01/16 0000 Signed Impressions: Service Date/Time: April 15:18 - CONCLUSION: The gallbladder hss markedly dense contents may be related to iodinated contrast. The liver is markedly fatty. No evidence of free fluid or solid organ mass. Bladder wall is mildly thickened without focal mass. Doe Foote MD Laboratory Test 05/01/16 05/01/16 05/01/16 05/01/16 14:04 14:20 14:35 18:00 Blood Gas Puncture Site LT RADIAL Blood Gas Patient Temperature 98.6 Blood Gas HCO3 17 mmol/L Blood Gas Base Excess -6.1 mmol/L Blood Gas Oxygen Saturation 94 % Arterial Blood pH 7.44 Arterial Blood Partial 26 mmHg Pressure CO2 Arterial Blood Partial 86 mmHG Pressure O2 Arterial Blood Oxygen Content 15.1 Vol % Arterial Blood 1.5 % Carboxyhemoglobin Arterial Blood Methemoglobin 1.9 % Blood Gas Hemoglobin 11.4 G/DL Blood Gas Inspired Oxygen 21 % White Blood Count 9.2 TH/MM3 Red Blood Count 3.25 MIL/MM3 Hemoglobin 11.6 GM/DL Hematocrit 36.4 % Mean Corpuscular Volume 111.7 FL Mean Corpuscular Hemoglobin 35.6 PG Mean Corpuscular Hemoglobin 31.9 % Concent Red Cell Distribution Width 15.1 % Platelet Count 141 TH/MM3 Mean Platelet Volume 8.9 FL Neutrophils (%) (Auto) 75.7 % Lymphocytes (%) (Auto) 15.1 % Monocytes (%) (Auto) 8.6 % Eosinophils (%) (Auto) 0.1 % Basophils (%) (Auto) 0.5 % Neutrophils # (Auto) 7.0 TH/MM3 Lymphocytes # (Auto) 1.4 TH/MM3 Monocytes # (Auto) 0.8 TH/MM3 Eosinophils # (Auto) 0.0 TH/MM3 Basophils # (Auto) 0.0 TH/MM3 CBC Comment AUTO DIFF Differential Total Cells 100 Counted Neutrophils % (Manual) 72 % Band Neutrophils % 4 % Lymphocytes % 12 % Monocytes % 5 % Neutrophils # (Manual) 7.6 TH/MM3 Metamyelocytes 4 % Myelocytes 1 % Promyelocytes 2 % Nucleated Red Blood Cells 13 /100 WBC Differential Comment FINAL DIFF MANUAL Platelet Estimate LOW Platelet Morphology Comment NORMAL Ovalocytes 1+ Stomatocytes 3+ Prothrombin Time 21.2 SEC Prothromb Time International 1.9 RATIO Ratio Activated Partial 43.9 SEC Thromboplast Time Sodium Level 136 MEQ/L Potassium Level 4.6 MEQ/L Chloride Level 97 MEQ/L Carbon Dioxide Level 20.1 MEQ/L Anion Gap 19 MEQ/L Blood Urea Nitrogen 35 MG/DL Creatinine 1.39 MG/DL Estimat Glomerular Filtration 44 ML/MIN Rate Random Glucose 100 MG/DL Lactic Acid Level 6.4 mmol/L 9.4 mmol/L Calcium Level 8.1 MG/DL Magnesium Level 2.1 MG/DL Total Bilirubin 4.1 MG/DL Aspartate Amino Transf 136 U/L (AST/SGOT) Alanine Aminotransferase 152 U/L (ALT/SGPT) Alkaline Phosphatase 299 U/L Ammonia 81 MCMOL/L Total Creatine Kinase 78 U/L Troponin I 0.03 NG/ML Total Protein 5.0 GM/DL Albumin 2.2 GM/DL Lipase 185 U/L Salicylates Level LESS THAN 1.7 MG/DL Acetaminophen Level LESS THAN 2.0 MCG/ML Ethyl Alcohol Level LESS THAN 3 MG/DL Urine Color DARK-BROWN Urine Turbidity HAZY Urine pH 6.0 Urine Specific [place] 1.027 Urine Protein 30 mg/dL Urine Glucose (UA) TRACE mg/dL Urine Ketones TRACE mg/dL Urine Occult Blood SMALL Urine Nitrite NEG Urine Bilirubin MOD Urine Urobilinogen 2.0 MG/DL Urine Leukocyte Esterase NEG Urine RBC 8 /hpf Urine WBC 1 /hpf Urine Squamous Epithelial <1 /hpf Cells Microscopic Urinalysis Comment CATH-CULT NOT IND Urine Opiates Screen NEG Urine Barbiturates Screen NEG Urine Amphetamines Screen NEG Urine Benzodiazepines Screen NEG Urine Cocaine Screen NEG Urine Cannabinoids Screen NEG Test 05/01/16 05/01/16 05/01/16 05/02/16 19:30 19:57 22:28 02:28 Lactic Acid Level 9.4 mmol/L 6.6 mmol/L Total Creatine Kinase 159 U/L 94 U/L Troponin I 0.04 NG/ML 0.04 NG/ML Test 05/02/16 05/02/16 06:22 06:25 Ammonia 32 MCMOL/L White Blood Count 9.2 TH/MM3 Red Blood Count 2.98 MIL/MM3 Hemoglobin 11.1 GM/DL Hematocrit 32.9 % Mean Corpuscular Volume 110.4 FL Mean Corpuscular Hemoglobin 37.2 PG Mean Corpuscular Hemoglobin 33.7 % Concent Red Cell Distribution Width 15.5 % Platelet Count 122 TH/MM3 Mean Platelet Volume 9.0 FL Neutrophils (%) (Auto) 77.3 % Lymphocytes (%) (Auto) 15.0 % Monocytes (%) (Auto) 6.3 % Eosinophils (%) (Auto) 0.8 % Basophils (%) (Auto) 0.6 % Neutrophils # (Auto) 7.1 TH/MM3 Lymphocytes # (Auto) 1.4 TH/MM3 Monocytes # (Auto) 0.6 TH/MM3 Eosinophils # (Auto) 0.1 TH/MM3 Basophils # (Auto) 0.1 TH/MM3 CBC Comment AUTO DIFF Differential Total Cells 100 Counted Neutrophils % (Manual) 70 % Band Neutrophils % 12 % Lymphocytes % 9 % Monocytes % 7 % Neutrophils # (Manual) 7.7 TH/MM3 Myelocytes 2 % Nucleated Red Blood Cells 26 /100 WBC Differential Comment FINAL DIFF MANUAL Platelet Estimate LOW Platelet Morphology Comment NORMAL Target Cells 1+ Sodium Level 141 MEQ/L Potassium Level 4.1 MEQ/L Chloride Level 106 MEQ/L Carbon Dioxide Level 22.4 MEQ/L Anion Gap 13 MEQ/L Blood Urea Nitrogen 35 MG/DL Creatinine 1.16 MG/DL Estimat Glomerular Filtration 54 ML/MIN Rate Random Glucose 112 MG/DL Calcium Level 8.4 MG/DL Total Bilirubin 5.1 MG/DL Aspartate Amino Transf 155 U/L (AST/SGOT) Alanine Aminotransferase 149 U/L (ALT/SGPT) Alkaline Phosphatase 265 U/L Total Protein 4.9 GM/DL Albumin 2.1 GM/DL Date/Time Procedure Status Source Growth 05/01/16 17:50 Influenza Types A,B Antigen ([place]) - Final Complete Nasal Aspirate NEGATIVE FOR FLU A AND B ANTIGEN.... 05/01/16 14:20 Aerobic Blood Culture Received Blood Peripheral Pending 05/01/16 14:20 Anaerobic Blood Culture Received Blood Peripheral Pending Physical Examination HEENT: normocephalic; atraumatic; no jaundice. NECK: Neck is supple, no JVD, no lymphadenopathy. CHEST: Chest is clear to auscultation and percussion. CARDIAC: Regular rate and rhythm with no murmur gallop or rubs. ABDOMEN: Soft, nondistended, nontender; no hepatosplenomegaly; bowel sounds are present in all four quadrants. EXTREMITIES: No clubbing, cyanosis, or edema. SKIN: Normal; no rash; no jaundice. FOOD AND BEVERAGE CHECKER: Lethargic, not able to contribute any HPI (Devi Ro) Assessment and Plan Plan - Transaminitis/? liver failure- No able to able to obtain any information, patient is currently very lethargic, not able to provided any information, couldn't open his eyes through the entire physical exam, therefore, HPI was obtained from EMR. Patient with alcohol and tobacco abuse , last drink was Sunday 04/30, had 3-4 beers. No reported nausea/vomiting/ abdominal pain/diarrhea constipation. Abdomen/Pelvis CT (05/01/16)-------> The gallbladder has markedly dense contents may be related to iodinated contrast. The liver is markedly fatty. No evidence of free fluid or solid organ mass. Bladder wall is mildly thickened without focal mass. Gall Bladder Ultrasound (05/02/16)---> Minimal debris in the gallbladder with normal common duct. I do not see ancillary signs of acute cholecystitis. Mild fatty replacement to the liver. AST 155 [id number] bili 5.1, H&H 11.1/32.9, PLt 122. Toxicology negative , hepatitis panel pending. - Anemia- no bleeding reported hgb 11.1 - SIRS- elevated lactic acid, hypoxemia, tachycardiac T max 100.2 - AMS/elevated ammonia- CT of head negative, ammonia normalized with lactulose - Acute renal failure - Coagulopathy - thrombocytopenia - Alcohol abuse Plan: - Clear liquids - Await hepatitis panel - DAFNE, ASMA, AMA, Celiac, ceruloplasmin, iron studies, ferritin,alpha- antitrypsin - LFTs, PT/INR Q 6 hr X one day - Monitor labs - Supportive care - Patient seen and examined by Dr. Coates and myself and this note is written on his behalf. (Devi Ro) Physician Comments Patient seen and examined Agree with above Continue with current supportive care Monitor labs Liver Workup in progress (Pavan Coates MD) Devi Ro May 02, 2016 10:33 Pavan Coates MD May 02, 2016 13:13
--- NOTE | 2016-05-02 11:12 | HHI.PR ---
Subjective Remarks Follow-up lactic acidosis, elevated LFTs, encephalopathy. Patient is more lethargic today. He does awaken, but immediately falls back to sleep. No events reported by nursing. Objective Vitals Vital Signs Date Time Temp Pulse Resp B/P Pulse Ox O2 Delivery O2 Flow Rate FiO2 05/02/16 09:02 92 Nasal Cannula 2.00 05/02/16 07:00 100.2 111 24 124/67 95 05/02/16 06:00 114 05/02/16 05:00 112 05/02/16 04:00 114 05/02/16 03:00 97.5 119 24 98/ 96 05/02/16 01:17 98.8 112 21 107/57 93 Nasal Cannula 2 05/01/16 23:02 108 20 101/57 95 Nasal Cannula 2 05/01/16 21:01 107 20 116/59 95 Nasal Cannula 2 05/01/16 20:10 104 22 100/57 95 Nasal Cannula 2 05/01/16 19:47 98 Nasal Cannula 2.00 05/01/16 19:06 98.0 105 20 107/60 98 Nasal Cannula 2 05/01/16 18:13 Nasal Cannula 2 05/01/16 18:10 100.5 110 24 121/67 96 Nasal Cannula 2 05/01/16 18:08 96 Nasal Cannula 2 05/01/16 14:06 Simple Mask 15 05/01/16 13:59 101.8 112 28 130/78 97 I/O 05/01/16 05/01/16 05/01/16 05/02/16 05/02/16 05/02/16 07:00 15:00 23:00 07:00 15:00 23:00 Intake Total 1365 ml Balance 1365 ml Intake Oral 240 ml IV Total 1125 ml # Bowel Movements 2 Result Diagram: 05/02/16 0625 05/02/16 0625 Imaging Last Impressions Head CT 05/01/16 1358 Signed Impressions: Service Date/Time: April 15:14 - CONCLUSION: Normal examination. Doe Foote MD Chest X-Ray 05/01/16 1355 Signed Impressions: Service Date/Time: April 14:28 - CONCLUSION: Normal examination. Numerous healed left-sided rib fractures. Doe Foote MD Chest CT 05/01/16 0000 Signed Impressions: Service Date/Time: April 15:18 - CONCLUSION: Some atelectasis both lung bases. Markedly fatty liver. Doe Foote MD Abdomen/Pelvis CT 05/01/16 0000 Signed Impressions: Service Date/Time: April 15:18 - CONCLUSION: The gallbladder hss markedly dense contents may be related to iodinated contrast. The liver is markedly fatty. No evidence of free fluid or solid organ mass. Bladder wall is mildly thickened without focal mass. Doe Foote MD Objective Remarks General: No acute distress. Jaundiced. HEENT: Scleral icterus is noted. Heart: Regular rate and rhythm. No murmur. Lungs: Clear to auscultation bilaterally. No wheezes, rales, or rhonchi. Breathing is nonlabored. Abdomen: Soft, nontender, nondistended. Extremities: No lower extremity edema. Psych: Lethargic. Does awaken to voice. Procedures None Urinary Catheter: No Vascular Central Line Catheter: No A/P Problem List: (1) Encephalopathy ICD Code: G93.40 Status: Acute (2) Unresponsive episode ICD Code: R41.89 Status: Acute (3) SIRS (systemic inflammatory response syndrome) ICD Code: R65.10 Status: Acute (4) Transaminitis ICD Code: R74.0 Status: Acute (5) Lactic acidosis ICD Code: E87.2 Status: Acute (6) Hyperammonemia ICD Code: E72.20 Status: Acute (7) ALY (acute kidney injury) ICD Code: N17.9 Status: Acute Assessment and Plan 1. Encephalopathy: Patient was found unresponsive. Likely multifactorial etiology. Probable component of hepatic encephalopathy as well as SIRS/ infection. Head CT is negative. Chest x-ray and chest CT showed no acute disease. The patient's mental status improved while in the ER. Continue to monitor. 2. SIRS: Patient met criteria with tachycardia, fever, lactic acidosis. Uncertain etiology. No obvious infectious source. Influenza negative. Patient receiving empiric vancomycin, Zosyn. Follow cultures. ?sepsis. Consult infectious disease. 3. Lactic acidosis: Serum lactic acid was significantly elevated overnight, and has been trending down. Patient initially presented with hypotension as well. Lactic acidosis may be secondary to hypovolemia, dehydration. Continue IV fluids. 4. Hepatic encephalopathy: Serum ammonia elevated at 81. Continue lactulose. Follow serum ammonia levels. Appreciate gastroneurology recommendations. 5. Transaminitis, jaundice: Possible alcoholic hepatitis. LFTs are elevated. CT shows fatty liver. Appreciate GI recommendations. Hepatitis panel pending. Monitor labs. 6. Acute kidney injury: Likely secondary to dehydration, poor oral intake. Continue IV fluids. Monitor labs. 7. Alcohol abuse: Last reported drink was 04/30/16. The patient states that he drinks 3-4 beers daily. Withdrawal precautions. Continue CIWA protocol. Continue thiamine, folate, multivitamin. 8. Tobacco abuse: Patient counseled to quit smoking. Nicotine patch. 9. Coagulopathy: INR is 1.9. Patient is not on anticoagulation. This is likely secondary to chronic alcohol abuse, liver disease. Monitor labs. 10. Macrocytic anemia, thrombocytopenia: Likely secondary to alcohol abuse, liver disease. Monitor labs. No apparent active bleeding at this time. 11. DVT prophylaxis: LEWIS Rich. Avoid chemical prophylaxis secondary to coagulopathy, anemia, thrombocytopenia. Mateo Garcia MD May 02, 2016 11:12
[2016-05-02 12:16] LABS: INTERNATIONAL NORMALIZED RATIO 1.7 RATIO; PROTHROMBIN TIME - PATIENT 18.9 SEC (9.8-11.6)
[2016-05-02 12:28] LABS: ALKALINE PHOSPHATASE 269 U/L (45-117); ALT (GPT) 144 U/L (12-78); AST (GOT) 160 U/L (15-37); FERRITIN 967 NG/ML (26-388); INDIRECT BILIRUBIN 1.2 MG/DL (0.0-0.8); TOTAL BILIRUBIN ADULT 5.2 MG/DL (0.2-1.0); TRANSFERRIN IRON PROFILE 105 MG/DL (200-360)
--- NOTE | 2016-05-02 13:42 | PD.CONS ---
History of Present Illness Service Infectious disease Consult Requested By Dr Jackelyn Garcia Reason for Consult Evaluate patient with sepsis, elevated lactic acid Primary Care Physician No Primary Care Physician Diagnoses: History of Present Illness Patient seen and examined. Records reviewed. Patient is lethargic and unable to give any history. Patient is a 65-year-old male, brought to the hospital after he was found unresponsive in his mobile home. He was apparently hypotensive, with low oxygen saturation, and was unresponsive. In the ED he had a normal white count , and patient afebrile. Chest x-ray showed some atelectasis. CT of the chest did not show any significant abnormality. CT of the abdomen and pelvis showed a large liver, gallbladder with some sludge or contrast, and some basilar infiltrates. Patient currently is on nasal O2. He apparently was more awake yesterday, and his lethargic today again. He would answer some questions briefly but goes back to sleep. He is still running fevers. His urinalysis unremarkable. His LFTs are markedly elevated. There is history of significant alcohol use and the patient states he drinks whiskey, but could not really awake long enough to give me answers as to how much whiskey he drinks in a day. He has moist cough. Not SOB, no nausea or vomiting. Infectious disease consultation requested to evaluate patient for sepsis and lactic acidosis. Review of Systems Constitutional: COMPLAINS OF: Fever Eyes: DENIES: Eye pain Ears, nose, mouth, throat: DENIES: Nasal discharge, Oral lesions, Throat pain Respiratory: COMPLAINS OF: Cough, DENIES: Shortness of breath Cardiovascular: COMPLAINS OF: Syncope, DENIES: Chest pain Gastrointestinal: DENIES: Abdominal pain, Diarrhea, Nausea, Vomiting Genitourinary: DENIES: Dysuria Musculoskeletal: DENIES: Joint pain, Muscle aches Integumentary: DENIES: Rash Neurologic: DENIES: Headache Psychiatric: COMPLAINS OF: Confusion Past Family Social History Allergies: Coded Allergies: No Known Allergies (Unverified , 05/01/16) Past Medical History None Past Surgical History Tonsillectomy Active Ordered Medications Flumazenil Lactulose Ativan MOM MVI with folate acid Nicotine patch Zofran Zosyn Thiamine Vancomycin Social History Drinks whiskey Smokes one pack per day of cigarettes Unknown if he had any illicit drug use Physical Exam Vital Signs Vital Signs Date Time Temp Pulse Resp B/P Pulse Ox O2 Delivery O2 Flow Rate FiO2 3/3/17 13:00 117 05/02/16 12:00 116 05/02/16 11:00 99.3 118 26 119/60 95 05/02/16 11:00 116 05/02/16 09:02 92 Nasal Cannula 2.00 05/02/16 07:00 100.2 111 24 124/67 95 05/02/16 06:00 114 05/02/16 05:00 112 05/02/16 04:00 114 05/02/16 03:00 97.5 119 24 98/ 96 05/02/16 01:17 98.8 112 21 107/57 93 Nasal Cannula 2 05/01/16 23:02 108 20 101/57 95 Nasal Cannula 2 05/01/16 21:01 107 20 116/59 95 Nasal Cannula 2 05/01/16 20:10 104 22 100/57 95 Nasal Cannula 2 05/01/16 19:47 98 Nasal Cannula 2.00 05/01/16 19:06 98.0 105 20 107/60 98 Nasal Cannula 2 05/01/16 18:13 Nasal Cannula 2 05/01/16 18:10 100.5 110 24 121/67 96 Nasal Cannula 2 05/01/16 18:08 96 Nasal Cannula 2 05/01/16 14:06 Simple Mask 15 05/01/16 13:59 101.8 112 28 130/78 97 Physical Exam GENERAL: This is a well-nourished, well-developed male, lethargic, opens eyes briefly and answers some questions, but goes back to sleep. Has a weak moist cough. Looks comfortable. SKIN: Warm and moist. Has jaundice. No generalized rash or ecchymosis. HEAD: Atraumatic. Normocephalic. No temporal or scalp tenderness. EYES: [place] conjunctivae. Pupils equal round and reactive. Extraocular motions intact. Has scleral icterus. No injection or drainage. ENT: Nose without bleeding, or purulent drainage. Dry oral mucosa, poor dentition. Throat without erythema, or exudate. Airway patent. NECK: Trachea midline. No JVD or lymphadenopathy. Supple, nontender, no meningeal signs. CARDIOVASCULAR: Regular rate and rhythm without murmurs, gallops, or rubs. RESPIRATORY: Coarse breath sounds bilaterally, with scattered rhonchi. Breath sounds equal bilaterally. GASTROINTESTINAL: Abdomen soft, nondistended, bowel sounds are present and hypoactive. Liver edge is enlarged and more than 5 fingerbreadths below the right coastal margin. Question palpable gallbladder. Has mild tenderness on palpation, no guarding or rebound. MUSCULOSKELETAL: Extremities without clubbing, cyanosis, or edema. No joint effusion, or edema noted. No calf tenderness. Negative Homans sign bilaterally. Has some dry healing abrasion L knee NEUROLOGICAL: Lethargic, opens eyes and would answer some questions but goes back to sleep. No Babinski. No ankle clonus LINE: PIV with no evidence of infection PSYCH: Unable to assess Laboratory Laboratory Tests Test 05/01/16 05/01/16 05/01/16 05/01/16 14:04 14:20 14:35 18:00 Blood Gas Puncture Site LT RADIAL Blood Gas Patient Temperature 98.6 Blood Gas HCO3 17 Blood Gas Base Excess -6.1 Blood Gas Oxygen Saturation 94 Arterial Blood pH 7.44 Arterial Blood Partial 26 Pressure CO2 Arterial Blood Partial 86 Pressure O2 Arterial Blood Oxygen Content 15.1 Arterial Blood 1.5 Carboxyhemoglobin Arterial Blood Methemoglobin 1.9 Blood Gas Hemoglobin 11.4 Blood Gas Inspired Oxygen 21 White Blood Count 9.2 Red Blood Count 3.25 Hemoglobin 11.6 Hematocrit 36.4 Mean Corpuscular Volume 111.7 Mean Corpuscular Hemoglobin 35.6 Mean Corpuscular Hemoglobin 31.9 Concent Red Cell Distribution Width 15.1 Platelet Count 141 Mean Platelet Volume 8.9 Neutrophils (%) (Auto) 75.7 Lymphocytes (%) (Auto) 15.1 Monocytes (%) (Auto) 8.6 Eosinophils (%) (Auto) 0.1 Basophils (%) (Auto) 0.5 Neutrophils # (Auto) 7.0 Lymphocytes # (Auto) 1.4 Monocytes # (Auto) 0.8 Eosinophils # (Auto) 0.0 Basophils # (Auto) 0.0 CBC Comment AUTO DIFF Differential Total Cells 100 Counted Neutrophils % (Manual) 72 Band Neutrophils % 4 Lymphocytes % 12 Monocytes % 5 Neutrophils # (Manual) 7.6 Metamyelocytes 4 Myelocytes 1 Promyelocytes 2 Nucleated Red Blood Cells 13 Differential Comment FINAL DIFF MANUAL Platelet Estimate LOW Platelet Morphology Comment NORMAL Ovalocytes 1+ Stomatocytes 3+ Prothrombin Time 21.2 Prothromb Time International 1.9 Ratio Activated Partial 43.9 Thromboplast Time Sodium Level 136 Potassium Level 4.6 Chloride Level 97 Carbon Dioxide Level 20.1 Anion Gap 19 Blood Urea Nitrogen 35 Creatinine 1.39 Estimat Glomerular Filtration 44 Rate Random Glucose 100 Lactic Acid Level 6.4 9.4 Calcium Level 8.1 Magnesium Level 2.1 Total Bilirubin 4.1 Aspartate Amino Transf 136 (AST/SGOT) Alanine Aminotransferase 152 (ALT/SGPT) Alkaline Phosphatase 299 Ammonia 81 Total Creatine Kinase 78 Troponin I 0.03 Total Protein 5.0 Albumin 2.2 Lipase 185 Salicylates Level LESS THAN 1.7 Acetaminophen Level LESS THAN 2.0 Ethyl Alcohol Level LESS THAN 3 Urine Color DARK-BROWN Urine Turbidity HAZY Urine pH 6.0 Urine Specific [place] 1.027 Urine Protein 30 Urine Glucose (UA) TRACE Urine Ketones TRACE Urine Occult Blood SMALL Urine Nitrite NEG Urine Bilirubin MOD Urine Urobilinogen 2.0 Urine Leukocyte Esterase NEG Urine RBC 8 Urine WBC 1 Urine Squamous Epithelial <1 Cells Microscopic Urinalysis Comment CATH-CULT NOT IND Urine Opiates Screen NEG Urine Barbiturates Screen NEG Urine Amphetamines Screen NEG Urine Benzodiazepines Screen NEG Urine Cocaine Screen NEG Urine Cannabinoids Screen NEG Test 05/01/16 05/01/16 05/01/16 05/02/16 19:30 19:57 22:28 02:28 Lactic Acid Level 9.4 6.6 Hepatitis A IgM Antibody NEGATIVE Hepatitis B Surface Antigen NEGATIVE Hepatitis B Core IgM Antibody NEGATIVE Hepatitis C Antibody NEGATIVE Total Creatine Kinase 159 94 Troponin I 0.04 0.04 Test 05/02/16 05/02/16 05/02/16 06:22 06:25 11:45 Ammonia 32 White Blood Count 9.2 Red Blood Count 2.98 Hemoglobin 11.1 Hematocrit 32.9 Mean Corpuscular Volume 110.4 Mean Corpuscular Hemoglobin 37.2 Mean Corpuscular Hemoglobin 33.7 Concent Red Cell Distribution Width 15.5 Platelet Count 122 Mean Platelet Volume 9.0 Neutrophils (%) (Auto) 77.3 Lymphocytes (%) (Auto) 15.0 Monocytes (%) (Auto) 6.3 Eosinophils (%) (Auto) 0.8 Basophils (%) (Auto) 0.6 Neutrophils # (Auto) 7.1 Lymphocytes # (Auto) 1.4 Monocytes # (Auto) 0.6 Eosinophils # (Auto) 0.1 Basophils # (Auto) 0.1 CBC Comment AUTO DIFF Differential Total Cells 100 Counted Neutrophils % (Manual) 70 Band Neutrophils % 12 Lymphocytes % 9 Monocytes % 7 Neutrophils # (Manual) 7.7 Myelocytes 2 Nucleated Red Blood Cells 26 Differential Comment FINAL DIFF MANUAL Platelet Estimate LOW Platelet Morphology Comment NORMAL Target Cells 1+ Sodium Level 141 Potassium Level 4.1 Chloride Level 106 Carbon Dioxide Level 22.4 Anion Gap 13 Blood Urea Nitrogen 35 Creatinine 1.16 Estimat Glomerular Filtration 54 Rate Random Glucose 112 Calcium Level 8.4 Total Bilirubin 5.1 5.2 Aspartate Amino Transf 155 160 (AST/SGOT) Alanine Aminotransferase 149 144 (ALT/SGPT) Alkaline Phosphatase 265 269 Total Protein 4.9 4.8 Albumin 2.1 2.0 Prothrombin Time 18.9 Prothromb Time International 1.7 Ratio Iron Level 133 Total Iron Binding Capacity 147 Percent Iron Saturation 90.5 Ferritin 967 Direct Bilirubin 4.0 Indirect Bilirubin 1.2 Date/Time Procedure Status Source Growth 05/01/16 17:50 Influenza Types A,B Antigen ([facility]) - Final Complete Nasal Aspirate NEGATIVE FOR FLU A AND B ANTIGEN.... 05/01/16 14:20 Aerobic Blood Culture - Preliminary Resulted Blood Peripheral NO GROWTH IN 1 DAY 05/01/16 14:20 Anaerobic Blood Culture - Preliminary Resulted Blood Peripheral NO GROWTH IN 1 DAY Result Diagram: 05/02/16 0625 05/02/16 0625 Imaging RADIOLOGY STUDIES/FILMS REVIEWED Head CT 05/01/16 1358 Signed Impressions: Service Date/Time: April 15:14 - CONCLUSION: Normal examination. Doe Foote MD Chest X-Ray 05/01/16 1355 Signed Impressions: Service Date/Time: April 14:28 - CONCLUSION: Normal examination. Numerous healed left-sided rib fractures. Doe Foote MD Chest CT 05/01/16 0000 Signed Impressions: Service Date/Time: April 15:18 - CONCLUSION: Some atelectasis both lung bases. Markedly fatty liver. Doe Foote MD Abdomen/Pelvis CT 05/01/16 0000 Signed Impressions: Service Date/Time: April 15:18 - CONCLUSION: The gallbladder hss markedly dense contents may be related to iodinated contrast. The liver is markedly fatty. No evidence of free fluid or solid organ mass. Bladder wall is mildly thickened without focal mass. Doe Foote MD Assessment and Plan Assessment and Plan IMPRESSION Sepsis, has lethargy, fever, acidosis, tachycardia, concern with aspiration PNA - has weak moist cough - ?tender enlarged GB - has most likely ETOH hepatitis Known ETOH abuse Encephalopathy due to sepsis, liver disease RECOMMENDATION Continue Zosyn, increase dose D/C Vancomycin Follow C/S US GB Monitor temps I will follow along with you Thank you for this consultation Mireya Mora MD May 02, 2016 13:42
[2016-05-02] MEDS: SODIUM CHLOR 0.9% 1000 ML INJ 1,000 ML IV SCH ×2 (15:42→15:46)
[2016-05-02 15:53] LABS: LACTIC ACID GHOST NOT REPORTABLE
--- NOTE | 2016-05-02 17:24 | RADRPT ---
EXAM DATE/TIME: 05/02/2016 16:32 [facility] COMPARISON: No previous studies available for comparison. INDICATIONS : Right upper quadrant pain. Elevated liver function tests. MEDICAL HISTORY : Syncope. Right upper quadrant pain. Fever. Confusion. SURGICAL HISTORY : Unable to obtain. ENCOUNTER: Initial ACUITY: 1 day PAIN SCORE: Nonresponsive. LOCATION: Right upper quadrant MEASUREMENTS: LIVER: 21.4 cm length COMMON DUCT: 3 mm RIGHT KIDNEY: 12.3 x 6.0 x 4.8 cm FINDINGS: LIVER: There is mild fatty replacement to the liver. COMMON DUCT: No intraluminal mass or stone visualized. GALLBLADDER: Minimal echogenic debris are present in the gallbladder with normal common duct. There is no gallbla dder wall thickening. PANCREAS: There is mild dilatation of pancreatic duct. RIGHT KIDNEY: No evidence of hydronephrosis, stone, or mass. CONCLUSION: Minimal debris in the gallbladder with normal common duct. I do not see ancillary signs of acute cho lecystitis. Mild fatty replacement to the liver. Jarad Alejandra MD FACR on May 02, 2016 at 17:21 Board Certified Radiologist. This report was verified electronically.
--- NOTE | 2016-05-02 23:10 | EKG ---
Date Performed: 05/02/2016 Time Performed: 02:23:49 PTAGE: 65 years EKG: SINUS TACHYCARDIA WITH FREQUENT SUPRAVENTRICULAR PREMATURE COMPLEXES LOW QRS VOLTAGE IN PRE CORDIAL LEADS ABNORMAL RHYTHM ECG PREVIOUS TRACING : 05/01/2016 19.57 DOCTOR: Max Anderson Interpretating Date/Time 05/06/2016 06:53:20
[2016-05-02] MEDS: THIAMINE INJ 100 MG in SODIUM CHLORIDE 0.9% INJ 100 ML IV SCH (23:16)
--- NOTE | 2016-05-02 23:18 | EKG ---
Date Performed: 05/01/2016 Time Performed: 19:57:49 PTAGE: 65 years EKG: SINUS TACHYCARDIA ABNORMAL RHYTHM ECG PREVIOUS TRACING : 05/01/2016 15.00 DOCTOR: Max Anderson Interpretating Date/Time 05/05/2016 07:41:12
--- NOTE | 2016-05-02 23:32 | EKG ---
Date Performed: 05/01/2016 Time Performed: 15:00:35 PTAGE: 65 years EKG: SINUS TACHYCARDIA WITH OCCASIONAL SUPRAVENTRICULAR PREMATURE COMPLEXES ABNORMAL RHYTHM ECG NO PREVIOUS TRACING DOCTOR: Max Anderson Interpretating Date/Time 05/06/2016 06:53:12
[2016-05-03] VITALS (33 sets, daily range): BP systolic 98–116; BP diastolic 42–68; PULSE 90–113; RESP 22–32; TEMP 98.2–100.4; O2SAT 90–97
[2016-05-03] MEDS: MULTIVITAMIN INJ 10 ML, FOLIC ACID INJ 1 MG in SODIUM CHLORID 0.9% 500 ML INJ 500 ML IV SCH ×2 (00:03→20:40)
[2016-05-03] MEDS: SODIUM CHLOR 0.9% 1000 ML INJ 1,000 ML IV SCH ×3 (00:05→20:40)
[2016-05-03] MEDS: PIPERACIL-TAZO 3.375 GM PREMIX 50 ML IV SCH ×4 (03:32→20:40)
[2016-05-03] MEDS: INSULIN NovoLIN REGULAR SUPPLEMENTAL SCALE SQ SCH ×5 (05:11→23:36)
[2016-05-03 05:19] LABS: MEAN CELL VOLUME 112.6 FL (80.0-100.0); MEAN CORPUSCULAR HEMOGLOBIN 35.6 PG (27.0-34.0); MEAN CORPUSCULAR HGB CONC 31.6 % (32.0-36.0); PLATELET COUNT 105 TH/MM3 (150-450); RED BLOOD COUNT 2.58 MIL/MM3 (4.50-5.90); RED CELL DISTRIBUTION WIDTH 15.5 % (11.6-17.2); WHITE BLOOD COUNT 15.4 TH/MM3 (4.0-11.0)
[2016-05-03 05:24] LABS: REVIEW FLAG FINAL
[2016-05-03 05:43] LABS: INTERNATIONAL NORMALIZED RATIO 1.6 RATIO; PROTHROMBIN TIME - PATIENT 17.5 SEC (9.8-11.6)
[2016-05-03 05:46] LABS: BICARBONATE 23.3 MEQ/L (21.0-32.0); POTASSIUM 4.2 MEQ/L (3.5-5.1)
[2016-05-03 05:51] LABS: TOTAL BILIRUBIN ADULT 4.8 MG/DL (0.2-1.0)
[2016-05-03] MEDS: LACTULOSE SYRUP 20 GM/30 ML CUP PO SCH ×3 (09:00→20:51)
[2016-05-03] MEDS: SODIUM CHLORIDE 0.9% FLUSH 5 ML FLUSH FLUSH SCH ×2 (09:57→20:42)
--- NOTE | 2016-05-03 11:11 | HHI.PR ---
Subjective Remarks Follow-up possible sepsis, liver failure. Patient is more alert today, but does not answer questions. Objective Vitals Vital Signs Date Time Temp Pulse Resp B/P Pulse Ox O2 Delivery O2 Flow Rate FiO2 05/03/16 07:53 99.9 106 22 100/60 94 05/03/16 06:00 108 28 99/52 96 05/03/16 05:00 106 05/03/16 04:00 108 05/03/16 04:00 108 30 99/42 95 05/03/16 03:58 99.8 102 30 99/42 95 05/03/16 03:00 110 05/03/16 02:00 112 05/03/16 01:34 110 24 103/56 95 05/03/16 01:00 108 05/03/16 01:00 98.4 111 26 107/58 95 05/03/16 00:21 98.2 113 30 105/55 96 05/03/16 00:00 112 05/02/16 23:00 112 05/02/16 22:00 114 05/02/16 21:00 116 05/02/16 20:00 116 05/02/16 20:00 97.9 116 24 107/58 96 05/02/16 19:00 117 05/02/16 18:00 114 05/02/16 17:00 115 05/02/16 16:00 114 05/02/16 16:00 102.7 117 26 128/62 96 05/02/16 15:00 117 05/02/16 14:00 103 05/02/16 13:00 117 05/02/16 12:00 116 I/O 05/02/16 05/02/16 05/02/16 05/03/16 05/03/16 05/03/16 07:00 15:00 23:00 07:00 15:00 23:00 Intake Total 1365 ml 2478 ml 2055 ml Output Total 800 ml 425 ml Balance 1365 ml 1678 ml 1630 ml Intake Oral 240 ml 0 ml 0 ml IV Total 1125 ml 2478 ml 2055 ml Output Urine Total 800 ml 425 ml # Voids 2 1 # Bowel Movements 2 2 0 Result Diagram: 05/03/16 0510 05/03/16 0510 Imaging Last Impressions Gall Bladder Ultrasound 05/02/16 0000 Signed Impressions: Service Date/Time: Monday, May 02, 2016 16:32 - CONCLUSION: Minimal debris in the gallbladder with normal common duct. I do not see ancillary signs of acute cholecystitis. Mild fatty replacement to the liver. Jarad Alejandra MD FACR Head CT 05/01/16 1358 Signed Impressions: Service Date/Time: , May 01, 2016 15:14 - CONCLUSION: Normal examination. Doe Foote MD Chest X-Ray 05/01/16 1355 Signed Impressions: Service Date/Time: , May 01, 2016 14:28 - CONCLUSION: Normal examination. Numerous healed left-sided rib fractures. Doe Foote MD Chest CT 05/01/16 0000 Signed Impressions: Service Date/Time: April 15:18 - CONCLUSION: Some atelectasis both lung bases. Markedly fatty liver. Doe Foote MD Abdomen/Pelvis CT 05/01/16 0000 Signed Impressions: Service Date/Time: April 15:18 - CONCLUSION: The gallbladder hss markedly dense contents may be related to iodinated contrast. The liver is markedly fatty. No evidence of free fluid or solid organ mass. Bladder wall is mildly thickened without focal mass. Doe Foote MD Objective Remarks General: No acute distress. Jaundiced. HEENT: Scleral icterus is noted. Heart: Regular rate and rhythm. No murmur. Lungs: Clear to auscultation bilaterally. No wheezes, rales, or rhonchi. Breathing is nonlabored. Abdomen: Soft, nontender, nondistended. Extremities: No lower extremity edema. Psych: Awake, but does not answer questions. Procedures None Urinary Catheter: No Vascular Central Line Catheter: No A/P Problem List: (1) Encephalopathy ICD Code: G93.40 Status: Acute (2) Unresponsive episode ICD Code: R41.89 Status: Acute (3) SIRS (systemic inflammatory response syndrome) ICD Code: R65.10 Status: Acute (4) Transaminitis ICD Code: R74.0 Status: Acute (5) Lactic acidosis ICD Code: E87.2 Status: Acute (6) Hyperammonemia ICD Code: E72.20 Status: Acute (7) ALY (acute kidney injury) ICD Code: N17.9 Status: Acute Assessment and Plan 1. Encephalopathy: Patient was found unresponsive. Likely multifactorial etiology. Probable component of hepatic encephalopathy as well as SIRS/ infection. Head CT is negative. Chest x-ray and chest CT showed no acute disease. The patient's mental status improved while in the ER. More alert today , but does not answer questions. Continue to monitor. 2. SIRS: Patient met criteria with tachycardia, fever, lactic acidosis. Uncertain etiology. No obvious infectious source. Influenza negative. Follow cultures. ?sepsis. Appreciate infectious disease recommendations. Continue Zosyn. Vancomycin discontinued. 3. Lactic acidosis: Improved. Lactic acidosis may be secondary to hypovolemia, dehydration. Continue IV fluids. 4. Hepatic encephalopathy: Serum ammonia elevated improved. Continue lactulose. Follow serum ammonia levels. Appreciate gastroenterology recommendations. 5. Transaminitis, jaundice: Possible alcoholic hepatitis. LFTs are elevated. CT shows fatty liver. Appreciate GI recommendations. Hepatitis panel is negative. Monitor labs. 6. Acute kidney injury: Likely secondary to dehydration, poor oral intake. Continue IV fluids. Monitor labs. 7. Alcohol abuse: Last reported drink was 04/30/16. The patient states that he drinks 3-4 beers daily. Withdrawal precautions. Continue CIWA protocol. Continue thiamine, folate, multivitamin. 8. Tobacco abuse: Patient counseled to quit smoking. Nicotine patch. 9. Coagulopathy: INR is 1.6. Patient is not on anticoagulation. This is likely secondary to chronic alcohol abuse, liver disease. Monitor labs. 10. Macrocytic anemia, thrombocytopenia: Likely secondary to alcohol abuse, liver disease. Monitor labs. No apparent active bleeding at this time. 11. DVT prophylaxis: LEWIS Rich. Avoid chemical prophylaxis secondary to coagulopathy, anemia, thrombocytopenia. Mateo Garcia MD May 03, 2016 11:11
--- NOTE | 2016-05-03 14:16 | HHI.GIFU ---
Subjective Remarks Resting in bed. Lethargic, but arousable. No n/v. No abdominal pain. ( [place] Oconnell) Objective Vitals I&O Vital Signs Date Time Temp Pulse Resp B/P Pulse Ox O2 Delivery O2 Flow Rate FiO2 05/03/16 11:41 95 Nasal Cannula 2.50 05/03/16 11:30 100.4 107 24 116/68 95 05/03/16 07:53 99.9 106 22 100/60 94 05/03/16 06:00 108 28 99/52 96 05/03/16 05:00 106 05/03/16 04:00 108 05/03/16 04:00 108 30 99/42 95 05/03/16 03:58 99.8 102 30 99/42 95 05/03/16 03:00 110 05/03/16 02:00 112 05/03/16 01:34 110 24 103/56 95 05/03/16 01:00 108 05/03/16 01:00 98.4 111 26 107/58 95 05/03/16 00:21 98.2 113 30 105/55 96 05/03/16 00:00 112 05/02/16 23:00 112 05/02/16 22:00 114 05/02/16 21:00 116 05/02/16 20:00 116 05/02/16 20:00 97.9 116 24 107/58 96 05/02/16 19:00 117 05/02/16 18:00 114 05/02/16 17:00 115 05/02/16 16:00 114 05/02/16 16:00 102.7 117 26 128/62 96 05/02/16 15:00 117 I/O 05/02/16 05/02/16 05/02/16 05/03/16 05/03/16 05/03/16 07:00 15:00 23:00 07:00 15:00 23:00 Intake Total 1365 ml 2478 ml 2055 ml Output Total 800 ml 425 ml Balance 1365 ml 1678 ml 1630 ml Intake Oral 240 ml 0 ml 0 ml IV Total 1125 ml 2478 ml 2055 ml Output Urine Total 800 ml 425 ml # Voids 2 1 # Bowel Movements 2 2 0 Laboratory Laboratory Tests Test 05/02/16 05/03/16 16:43 05:10 Lactic Acid Level 2.8 White Blood Count 15.4 Red Blood Count 2.58 Hemoglobin 9.2 Hematocrit 29.0 Mean Corpuscular Volume 112.6 Mean Corpuscular Hemoglobin 35.6 Mean Corpuscular Hemoglobin 31.6 Concent Red Cell Distribution Width 15.5 Platelet Count 105 Mean Platelet Volume 8.7 Prothrombin Time 17.5 Prothromb Time International 1.6 Ratio Sodium Level 147 Potassium Level 4.2 Chloride Level 115 Carbon Dioxide Level 23.3 Anion Gap 9 Blood Urea Nitrogen 30 Creatinine 0.99 Estimat Glomerular Filtration 65 Rate Random Glucose 99 Calcium Level 8.3 Total Bilirubin 4.8 Direct Bilirubin 3.8 Indirect Bilirubin 1.0 Aspartate Amino Transf 175 (AST/SGOT) Alanine Aminotransferase 119 (ALT/SGPT) Alkaline Phosphatase 222 Total Protein 4.2 Albumin 1.7 Date/Time Procedure Status Source Growth 05/02/16 18:10 Aerobic Blood Culture - Preliminary Resulted Blood Arterial Line NO GROWTH IN 1 DAY 05/02/16 18:10 Anaerobic Blood Culture - Preliminary Resulted Blood Arterial Line NO GROWTH IN 1 DAY 05/01/16 17:50 Influenza Types A,B Antigen ([facility]) - Final Complete Nasal Aspirate NEGATIVE FOR FLU A AND B ANTIGEN.... Imaging Last Impressions Gall Bladder Ultrasound 05/02/16 0000 Signed Impressions: Service Date/Time: Monday, May 02, 2016 16:32 - CONCLUSION: Minimal debris in the gallbladder with normal common duct. I do not see ancillary signs of acute cholecystitis. Mild fatty replacement to the liver. Jarad Alejandra MD FACR Head CT 05/01/16 1358 Signed Impressions: Service Date/Time: April 15:14 - CONCLUSION: Normal examination. Doe Foote MD Chest X-Ray 05/01/16 1355 Signed Impressions: Service Date/Time: April 14:28 - CONCLUSION: Normal examination. Numerous healed left-sided rib fractures. Doe Foote MD Chest CT 05/01/16 0000 Signed Impressions: Service Date/Time: April 15:18 - CONCLUSION: Some atelectasis both lung bases. Markedly fatty liver. Doe Foote MD Abdomen/Pelvis CT 05/01/16 0000 Signed Impressions: Service Date/Time: April 15:18 - CONCLUSION: The gallbladder hss markedly dense contents may be related to iodinated contrast. The liver is markedly fatty. No evidence of free fluid or solid organ mass. Bladder wall is mildly thickened without focal mass. Doe Foote MD Physical Exam HEENT: Normocephalic; atraumatic; + jaundice. CHEST: Scattered rhonchi CARDIAC: RRR. ABDOMEN: Soft, nondistended, nontender; hepatosplenomegaly; bowel sounds are present in all four quadrants. EXTREMITIES: No clubbing, cyanosis, or edema. SKIN: Normal; no rash; + jaundice. 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 follows commands ([place] Oconnell) Assessment and Plan Plan ASSESSMENT: - Elevated LFTs. Abdomen/Pelvis CT (05/01/16)-------> The gallbladder has markedly dense contents may be related to iodinated contrast. The liver is markedly fatty. No evidence of free fluid or solid organ mass. Bladder wall is mildly thickened without focal mass. Gall Bladder Ultrasound (05/02/16)---> Minimal debris in the gallbladder with normal common duct. I do not see ancillary signs of acute cholecystitis. Mild fatty replacement to the liver. Hepatitis profile pending. DAFNE pending. AMA pending. ASMA pending. Celiac workup pending. Alpha 1 Antitrypsin pending, Ceruloplasmin pending. Ferritin 967, Iron Saturation 90.5%. T. Bili 4.8, AST 175, ALT 119, Alk Phosph 222. Will get Hfe gene. - Elevated Ammonia. Lactulose. Lethargic, but oriented to self and place. - Anemia. 9.2/29.0. - Coagulopathy, Thrombocytopenia. Stable. INR 1.6. Plt 105. - SIRS- elevated lactic acid, hypoxemia, tachycardiac T max 100.2. BCx with one bottle with coagulase negative stap. BCx no growth 1 day. - Acute renal failure. Improved. Plan: - Heart healthy diet (soft) - AFP level - Hfe Gene - Await hepatitis panel - Await DAFNE, ASMA, AMA, Celiac, ceruloplasmin - LFTs, PT/INR, Ammonia in am - Supportive care - Patient seen and examined by Dr. Coates and myself and this note is written on his behalf. ([place] Oconnell) Physician Comments Patient seen and examined Agree with above Continue with current supportive care Monitor labs Await results of workup (Pavan Coates MD) [place] Oconnell May 03, 2016 14:16 Pavan Coates MD May 03, 2016 18:31
[2016-05-03] MEDS ORDERED: PHARMACY ORDERED LAB XX ONE (19:45)
[2016-05-03] MEDS: THIAMINE INJ 100 MG in SODIUM CHLORIDE 0.9% INJ 100 ML IV SCH (20:51)
[2016-05-04] VITALS (29 sets, daily range): BP systolic 82–119; BP diastolic 46–69; PULSE 87–104; RESP 19–34; TEMP 97.7–99.7; O2SAT 95–100
[2016-05-04] MEDS: PIPERACIL-TAZO 3.375 GM PREMIX 50 ML IV SCH ×4 (03:00→20:12)
[2016-05-04 05:21] LABS: HEMATOCRIT 28.8 % (39.0-51.0); MEAN CELL VOLUME 111.4 FL (80.0-100.0); MEAN CORPUSCULAR HEMOGLOBIN 35.3 PG (27.0-34.0); MEAN CORPUSCULAR HGB CONC 31.7 % (32.0-36.0); PLATELET COUNT 95 TH/MM3 (150-450); RED BLOOD COUNT 2.58 MIL/MM3 (4.50-5.90); RED CELL DISTRIBUTION WIDTH 15.6 % (11.6-17.2)
[2016-05-04 05:22] LABS: REVIEW FLAG FINAL
[2016-05-04 05:39] LABS: INTERNATIONAL NORMALIZED RATIO 1.4 RATIO; PROTHROMBIN TIME - PATIENT 15.2 SEC (9.8-11.6)
[2016-05-04 05:53] LABS: TOTAL BILIRUBIN ADULT 5.2 MG/DL (0.2-1.0)
[2016-05-04] MEDS: INSULIN NovoLIN REGULAR SUPPLEMENTAL SCALE SQ SCH ×3 (06:00→17:00)
[2016-05-04] MEDS: SODIUM CHLOR 0.9% 1000 ML INJ 1,000 ML IV SCH (06:05)
[2016-05-04] MEDS: SODIUM CHLOR 0.45% 1000 ML INJ 1,000 ML IV SCH ×2 (07:45→19:40)
[2016-05-04] MEDS: SODIUM CHLORIDE 0.9% FLUSH 5 ML FLUSH FLUSH SCH ×2 (08:17→20:16)
[2016-05-04] MEDS: LACTULOSE SYRUP 20 GM/30 ML CUP PO SCH ×2 (08:19→20:12)
--- NOTE | 2016-05-04 10:21 | HHI.PR ---
Subjective Remarks Follow-up encephalopathy, electrolyte abnormalities, liver failure. The patient is more alert and answers questions today, however he is confused. Per nursing, he has had decreased urine output this morning. Patient denies chest pain, dyspnea. Objective Vitals Vital Signs Date Time Temp Pulse Resp B/P Pulse Ox O2 Delivery O2 Flow Rate FiO2 05/04/16 07:46 99 Nasal Cannula 3.00 05/04/16 07:30 97.9 93 19 119/69 100 05/04/16 07:00 98 05/04/16 05:00 90 05/04/16 04:04 98.2 95 34 113/63 96 05/04/16 04:00 94 05/04/16 03:00 94 05/04/16 02:00 94 05/04/16 01:00 94 05/04/16 00:00 98 05/03/16 23:29 98.7 96 32 114/68 96 05/03/16 23:00 100 05/03/16 22:00 102 05/03/16 21:00 100 05/03/16 20:00 98.2 101 24 107/66 97 05/03/16 20:00 100 05/03/16 19:00 100 05/03/16 18:00 101 05/03/16 17:00 112 05/03/16 16:00 90 05/03/16 15:45 99.9 105 24 98/60 90 05/03/16 15:44 91 Nasal Cannula 2.50 05/03/16 15:00 90 05/03/16 14:00 92 05/03/16 13:00 102 05/03/16 12:00 106 05/03/16 11:41 95 Nasal Cannula 2.50 05/03/16 11:30 100.4 107 24 116/68 95 05/03/16 11:00 107 I/O 05/03/16 05/03/16 05/03/16 05/04/16 05/04/16 05/04/16 07:00 15:00 23:00 07:00 15:00 23:00 Intake Total 2055 ml 1470 ml 1844 ml Output Total 425 ml 350 ml 350 ml Balance 1630 ml 1120 ml 1494 ml Intake Oral 0 ml 0 ml 15 ml IV Total 2055 ml 1470 ml 1829 ml Output Urine Total 425 ml 350 ml 350 ml # Voids 2 # Bowel Movements 0 0 Result Diagram: 05/04/16 0450 05/04/16 0450 Imaging Last Impressions Gall Bladder Ultrasound 05/02/16 0000 Signed Impressions: Service Date/Time: Monday, May 02, 2016 16:32 - CONCLUSION: Minimal debris in the gallbladder with normal common duct. I do not see ancillary signs of acute cholecystitis. Mild fatty replacement to the liver. Jarad Alejandra MD FACR Head CT 05/01/16 1358 Signed Impressions: Service Date/Time: April 15:14 - CONCLUSION: Normal examination. Doe Foote MD Chest X-Ray 05/01/16 1355 Signed Impressions: Service Date/Time: April 14:28 - CONCLUSION: Normal examination. Numerous healed left-sided rib fractures. Doe Foote MD Chest CT 05/01/16 0000 Signed Impressions: Service Date/Time: April 15:18 - CONCLUSION: Some atelectasis both lung bases. Markedly fatty liver. Doe Foote MD Abdomen/Pelvis CT 05/01/16 0000 Signed Impressions: Service Date/Time: April 15:18 - CONCLUSION: The gallbladder hss markedly dense contents may be related to iodinated contrast. The liver is markedly fatty. No evidence of free fluid or solid organ mass. Bladder wall is mildly thickened without focal mass. Doe Foote MD Objective Remarks General: No acute distress. Jaundiced. HEENT: Scleral icterus is noted. Heart: Regular rate and rhythm. No murmur. Lungs: Clear to auscultation bilaterally. No wheezes, rales, or rhonchi. Breathing is nonlabored. Abdomen: Soft, nontender, nondistended. Extremities: No lower extremity edema. Psych: Awake, and, confused. Not oriented to year, month, location. Procedures None Urinary Catheter: No Vascular Central Line Catheter: No A/P Problem List: (1) Encephalopathy ICD Code: G93.40 Status: Acute (2) Unresponsive episode ICD Code: R41.89 Status: Acute (3) SIRS (systemic inflammatory response syndrome) ICD Code: R65.10 Status: Acute (4) Transaminitis ICD Code: R74.0 Status: Acute (5) Lactic acidosis ICD Code: E87.2 Status: Acute (6) Hyperammonemia ICD Code: E72.20 Status: Acute (7) ALY (acute kidney injury) ICD Code: N17.9 Status: Acute (8) Hypernatremia ICD Code: E87.0 Status: Acute (9) Leukocytosis ICD Code: D72.829 Status: Acute Assessment and Plan 1. Encephalopathy: Patient was found unresponsive. Likely multifactorial etiology. Probable component of hepatic encephalopathy as well as SIRS/ infection. Head CT is negative. Chest x-ray and chest CT showed no acute disease. The patient's mental status improved while in the ER. Continue to monitor. 2. SIRS: Patient met criteria with tachycardia, fever, lactic acidosis. Uncertain etiology. No obvious infectious source. Influenza negative. Initial blood culture with coag negative staph, likely contaminant. Follow cultures. ? sepsis. Appreciate infectious disease recommendations. Continue Zosyn. Vancomycin discontinued. 3. Lactic acidosis: Improved. Lactic acidosis may be secondary to hypovolemia, dehydration. Continue IV fluids. 4. Hepatic encephalopathy: Serum ammonia elevated improved. Continue lactulose. Follow serum ammonia levels. Appreciate gastroenterology recommendations. 5. Transaminitis, jaundice: Possible alcoholic hepatitis. LFTs are elevated. CT shows fatty liver. Appreciate GI recommendations. Hepatitis panel is negative. Monitor labs. 6. Acute kidney injury: Likely secondary to dehydration, poor oral intake. Continue IV fluids. Monitor labs. 7. Alcohol abuse: Last reported drink was 04/30/16. The patient states that he drinks 3-4 beers daily. Withdrawal precautions. Continue CIWA protocol. Has not been requiring lorazepam. Continue thiamine, folate, multivitamin. 8. Tobacco abuse: Patient counseled to quit smoking. Nicotine patch. 9. Coagulopathy: INR is trending down. Patient is not on anticoagulation. Elevated INR is likely secondary to chronic alcohol abuse, liver disease. Monitor labs. 10. Macrocytic anemia, thrombocytopenia: Likely secondary to alcohol abuse, liver disease. Monitor labs. No apparent active bleeding at this time. 11. DVT prophylaxis: SCDs, LEWIS hose. Avoid chemical prophylaxis secondary to coagulopathy, anemia, thrombocytopenia. 12. Hypernatremia: Adjust IV fluids and monitor labs. 13. Decreased urine output: Check bladder scan and place Lamar catheter. Evidence of urinary retention. Continue IV fluids. BUN remains elevated, but creatinine has improved. Mateo Garcia MD May 04, 2016 10:21
[2016-05-04] MEDS: MULTIVITAMIN INJ 10 ML, FOLIC ACID INJ 1 MG in SODIUM CHLORID 0.9% 500 ML INJ 500 ML IV SCH (20:12)
--- NOTE | 2016-05-04 22:06 | HHI.GIFU ---
Subjective Remarks Patient comfortable in bed denies any pain Objective Vitals I&O Vital Signs Date Time Temp Pulse Resp B/P Pulse Ox O2 Delivery O2 Flow Rate FiO2 05/04/16 20:01 97.7 91 24 86/47 97 05/04/16 18:00 93 05/04/16 17:24 95 Nasal Cannula 3.00 05/04/16 17:00 93 05/04/16 16:00 87 05/04/16 15:00 99.6 88 25 96/57 95 05/04/16 15:00 101 05/04/16 14:00 97 05/04/16 13:00 100 05/04/16 12:00 99 05/04/16 11:00 99.7 102 21 102/57 97 05/04/16 11:00 100 05/04/16 10:00 104 05/04/16 09:00 102 05/04/16 08:00 94 05/04/16 07:46 99 Nasal Cannula 3.00 05/04/16 07:30 97.9 93 19 119/69 100 05/04/16 07:00 98 05/04/16 05:00 90 05/04/16 04:04 98.2 95 34 113/63 96 05/04/16 04:00 94 05/04/16 03:00 94 05/04/16 02:00 94 05/04/16 01:00 94 05/04/16 00:00 98 05/03/16 23:29 98.7 96 32 114/68 96 05/03/16 23:00 100 I/O 05/03/16 05/03/16 05/03/16 05/04/16 05/04/16 05/04/16 07:00 15:00 23:00 07:00 15:00 23:00 Intake Total 2055 ml 1470 ml 1844 ml 800 ml Output Total 425 ml 350 ml 350 ml 700 ml Balance 1630 ml 1120 ml 1494 ml 100 ml Intake Oral 0 ml 0 ml 15 ml 100 ml IV Total 2055 ml 1470 ml 1829 ml 700 ml Output Urine Total 425 ml 350 ml 350 ml 700 ml Bladder Scan Volume Amount 803 ml # Voids 2 # Bowel Movements 0 0 1 Laboratory Laboratory Tests Test 05/04/16 04:50 White Blood Count 19.0 Red Blood Count 2.58 Hemoglobin 9.1 Hematocrit 28.8 Mean Corpuscular Volume 111.4 Mean Corpuscular Hemoglobin 35.3 Mean Corpuscular Hemoglobin 31.7 Concent Red Cell Distribution Width 15.6 Platelet Count 95 Mean Platelet Volume 8.1 Prothrombin Time 15.2 Prothromb Time International 1.4 Ratio Sodium Level 154 Potassium Level 4.0 Chloride Level 120 Carbon Dioxide Level 26.0 Anion Gap 8 Blood Urea Nitrogen 25 Creatinine 0.90 Estimat Glomerular Filtration 85 Rate Random Glucose 86 Calcium Level 8.8 Total Bilirubin 5.2 Direct Bilirubin 4.2 Indirect Bilirubin 1.0 Aspartate Amino Transf 198 (AST/SGOT) Alanine Aminotransferase 123 (ALT/SGPT) Alkaline Phosphatase 199 Ammonia 27 Total Protein 4.2 Albumin 1.7 Date/Time Procedure Status Source Growth 05/04/16 15:36 Stool Occult Blood ([facility]) - Final Complete Stool Stool HEMOCCULT POSITIVE 05/02/16 18:10 Aerobic Blood Culture - Preliminary Resulted Blood Arterial Line NO GROWTH IN 2 DAYS 05/02/16 18:10 Anaerobic Blood Culture - Preliminary Resulted Blood Arterial Line NO GROWTH IN 2 DAYS 05/01/16 17:50 Influenza Types A,B Antigen ([facility]) - Final Complete Nasal Aspirate NEGATIVE FOR FLU A AND B ANTIGEN.... Imaging Last Impressions Gall Bladder Ultrasound 05/02/16 0000 Signed Impressions: Service Date/Time: Monday, May 02, 2016 16:32 - CONCLUSION: Minimal debris in the gallbladder with normal common duct. I do not see ancillary signs of acute cholecystitis. Mild fatty replacement to the liver. Jarad Alejandra MD FACR Head CT 05/01/16 1358 Signed Impressions: Service Date/Time: April 15:14 - CONCLUSION: Normal examination. Doe Foote MD Chest X-Ray 05/01/16 1355 Signed Impressions: Service Date/Time: April 14:28 - CONCLUSION: Normal examination. Numerous healed left-sided rib fractures. Doe Foote MD Chest CT 05/01/16 0000 Signed Impressions: Service Date/Time: April 15:18 - CONCLUSION: Some atelectasis both lung bases. Markedly fatty liver. Doe Foote MD Abdomen/Pelvis CT 05/01/16 0000 Signed Impressions: Service Date/Time: April 15:18 - CONCLUSION: The gallbladder hss markedly dense contents may be related to iodinated contrast. The liver is markedly fatty. No evidence of free fluid or solid organ mass. Bladder wall is mildly thickened without focal mass. Doe Foote MD Physical Exam HEENT: Normocephalic; atraumatic; + jaundice. CHEST: Scattered rhonchi CARDIAC: RRR. ABDOMEN: Soft, nondistended, nontender; hepatosplenomegaly; bowel sounds are present in all four quadrants. EXTREMITIES: No clubbing, cyanosis, or edema. SKIN: Normal; no rash; + jaundice. [employer]: No focal deficits; more alert. Assessment and Plan Plan - Transaminitis/? liver failure- No able to able to obtain any information, patient is currently very lethargic, not able to provided any information, couldn't open his eyes through the entire physical exam, therefore, HPI was obtained from EMR. Patient with alcohol and tobacco abuse , last drink was Sunday 04/30, had 3-4 beers. No reported nausea/vomiting/ abdominal pain/diarrhea constipation. Abdomen/Pelvis CT (05/01/16)-------> The gallbladder has markedly dense contents may be related to iodinated contrast. The liver is markedly fatty. No evidence of free fluid or solid organ mass. Bladder wall is mildly thickened without focal mass. Gall Bladder Ultrasound (05/02/16)---> Minimal debris in the gallbladder with normal common duct. I do not see ancillary signs of acute cholecystitis. Mild fatty replacement to the liver. AST 155 [id number] bili 5.1, H&H 11.1/32.9, PLt 122. Toxicology negative , hepatitis panel pending. - Anemia-patient was tested positive for guaiac and there was mention of melena earlier today - SIRS- elevated lactic acid, hypoxemia, tachycardiac T max 100.2 - AMS/elevated ammonia- CT of head negative, ammonia normalized with lactulose - Acute renal failure - Coagulopathy - thrombocytopenia - Alcohol abuse Plan: - Clear liquids - Await hepatitis panel - DAFNE, ASMA, AMA, Celiac, ceruloplasmin, iron studies, ferritin,alpha- antitrypsin - LFTs, PT/INR Q 6 hr X one day - Monitor labs - Supportive care -No evidence of active bleeding but at some point we will need to pursue an upper endoscopy Pavan Coates MD May 04, 2016 22:06
[2016-05-05] VITALS (23 sets, daily range): BP systolic 87–108; BP diastolic 48–59; PULSE 79–107; RESP 22–32; TEMP 97.1–100.4; O2SAT 92–99
[2016-05-05] MEDS: PIPERACIL-TAZO 3.375 GM PREMIX 50 ML IV SCH ×4 (02:56→21:04)
[2016-05-05 03:52] LABS: MITOCHONDRIAL ABS 29.4 U (())
[2016-05-05 04:29] LABS: AUTOMATED NEUTROPHIL # 16.5 TH/MM3 (1.8-7.7); BASOPHIL # 0.1 TH/MM3 (0-0.2); BASOPHIL % 0.7 % (0.0-2.0); EOSINOPHIL # 0.1 TH/MM3 (0-0.4); EOSINOPHIL % 0.4 % (0.0-4.0); HEMATOCRIT 27.9 % (39.0-51.0); LYMPH % 11.2 % (9.0-44.0); LYMPHOCYTE # 2.2 TH/MM3 (1.0-4.8); MEAN CELL VOLUME 113.8 FL (80.0-100.0); MEAN CORPUSCULAR HEMOGLOBIN 35.7 PG (27.0-34.0); MEAN CORPUSCULAR HGB CONC 31.3 % (32.0-36.0); MONO % 5.4 % (0.0-8.0); NEUT % 82.3 % (16.0-70.0); PLATELET COUNT 84 TH/MM3 (150-450); RED BLOOD COUNT 2.45 MIL/MM3 (4.50-5.90); RED CELL DISTRIBUTION WIDTH 16.1 % (11.6-17.2)
[2016-05-05 04:32] LABS: INTERNATIONAL NORMALIZED RATIO 1.3 RATIO; PROTHROMBIN TIME - PATIENT 14.6 SEC (9.8-11.6)
[2016-05-05 04:36] LABS: HEMO FLAGS AUTO DIFF
[2016-05-05 04:55] LABS: ALT (GPT) 139 U/L (12-78); ANION GAP 9 MEQ/L (5-15); AST (GOT) 266 U/L (15-37); BICARBONATE 23.3 MEQ/L (21.0-32.0); BLOOD UREA NITROGEN 23 MG/DL (7-18); CHLORIDE 123 MEQ/L (98-107); GLOMERULAR FILTRATION RATE 95 ML/MIN (>89); MAGNESIUM 2.2 MG/DL (1.5-2.5); POTASSIUM 3.9 MEQ/L (3.5-5.1); SODIUM (NA) 155 MEQ/L (136-145)
[2016-05-05 04:57] LABS: ALKALINE PHOSPHATASE 193 U/L (45-117); TOTAL BILIRUBIN ADULT 5.7 MG/DL (0.2-1.0)
[2016-05-05] MEDS: INSULIN NovoLIN REGULAR SUPPLEMENTAL SCALE SQ SCH ×4 (05:20→18:00)
[2016-05-05] MEDS: SODIUM CHLOR 0.45% 1000 ML INJ 1,000 ML IV SCH (06:08)
[2016-05-05 07:09] LABS: BANDS 21 % (0-6); CORRECTED NUCLEATED RBC 66 /100 WBC (0-0); METAMYELOCYTES 5 % (0-1); POLYS (SEG NEUTROPHILS) 59 % (16-70); WBC DIFF SAMPLE 100
[2016-05-05 07:13] LABS: PLATELET ESTIMATE SMEAR LOW (NORMAL); PLATELET MORPHOLOGY ENLARGED (NORMAL); POLYCHROMASIA 2.5 % (0.0-1.9); TARGET CELLS 1+ (NORMAL)
[2016-05-05 07:14] LABS: SCAN/DIFF FINAL DIFF MANUAL
[2016-05-05] MEDS: SODIUM CHLORIDE 0.9% FLUSH 5 ML FLUSH FLUSH SCH ×2 (09:00→21:05)
[2016-05-05] MEDS: LACTULOSE SYRUP 20 GM/30 ML CUP PO SCH ×2 (09:32→18:00)
[2016-05-05] MEDS: THIAMINE HCL 100 MG TAB PO SCH (09:32)
--- NOTE | 2016-05-05 09:39 | HHI.PR ---
Subjective Remarks Follow-up encephalopathy, electrolyte abnormalities, liver failure. The patient is able to awake to voice and answers questions with yes only, continues to be confused. Appears comfortable. Per nurse patient having black tarry stools.- Hemoccult positive Objective Vitals Vital Signs Date Time Temp Pulse Resp B/P Pulse Ox O2 Delivery O2 Flow Rate FiO2 05/05/16 08:00 82 05/05/16 07:00 97.7 94 30 100/51 95 05/05/16 07:00 91 05/05/16 05:00 92 05/05/16 04:41 97.6 90 28 93/55 96 05/05/16 04:00 81 05/05/16 03:01 97.6 90 24 89/58 98 05/05/16 03:00 92 05/05/16 02:00 90 05/05/16 01:00 98.2 91 22 93/48 98 05/05/16 01:00 90 05/05/16 00:00 90 05/04/16 23:25 93 87/50 97 05/04/16 23:23 97.9 91 22 82/46 97 05/04/16 23:00 92 05/04/16 22:00 92 05/04/16 21:00 94 05/04/16 20:01 97.7 91 24 86/47 97 05/04/16 20:00 91 05/04/16 18:00 93 05/04/16 17:24 95 Nasal Cannula 3.00 05/04/16 17:00 93 05/04/16 16:00 87 05/04/16 15:00 99.6 88 25 96/57 95 05/04/16 15:00 101 05/04/16 14:00 97 05/04/16 13:00 100 05/04/16 12:00 99 05/04/16 11:00 99.7 102 21 102/57 97 05/04/16 11:00 100 05/04/16 10:00 104 I/O 05/04/16 05/04/16 05/04/16 05/05/16 05/05/16 05/05/16 07:00 15:00 23:00 07:00 15:00 23:00 Intake Total 1844 ml 800 ml 2308 ml Output Total 350 ml 700 ml 350 ml Balance 1494 ml 100 ml 1958 ml Intake Oral 15 ml 100 ml 15 ml IV Total 1829 ml 700 ml 2293 ml Output Urine Total 350 ml 700 ml 350 ml Bladder Scan Volume Amount 803 ml # Bowel Movements 0 1 1 Result Diagram: 05/05/1634305/05/16343 Objective Remarks General: No acute distress. Jaundiced. HEENT: Scleral icterus is noted. Heart: Regular rate and rhythm. No murmur. Lungs: Clear to auscultation bilaterally. No wheezes, rales, or rhonchi. Breathing is nonlabored. Abdomen: Soft, nontender, nondistended. Extremities: No lower extremity edema. Neurological: Awake, and, confused. Oriented to person only, Not oriented to year, month, location- unable to follow commands Psych: Awake, and, confused. Oriented to person only, Not oriented to year, month, location. Procedures None A/P Problem List: (1) Encephalopathy ICD Code: G93.40 Status: Acute (2) Unresponsive episode ICD Code: R41.89 Status: Acute (3) SIRS (systemic inflammatory response syndrome) ICD Code: R65.10 Status: Acute (4) Transaminitis ICD Code: R74.0 Status: Acute (5) Lactic acidosis ICD Code: E87.2 Status: Acute (6) Hyperammonemia ICD Code: E72.20 Status: Acute (7) ALY (acute kidney injury) ICD Code: N17.9 Status: Acute (8) Hypernatremia ICD Code: E87.0 Status: Acute (9) Leukocytosis ICD Code: D72.829 Status: Acute Assessment and Plan 1. Encephalopathy: Patient was found unresponsive. Likely multifactorial etiology. Probable component of hepatic encephalopathy as well as SIRS/ infection. Head CT is negative. Chest x-ray and chest CT showed no acute disease. The patient's mental status improved while in the ER- remains confused answers yes to all questions- unable to follow commands 2. SIRS: Patient met criteria with tachycardia, fever, lactic acidosis. Uncertain etiology. No obvious infectious source. Influenza negative. Initial blood culture with coag negative staph, likely contaminant. Follow cultures. ? sepsis. WBC increasing- Appreciate infectious disease recommendations. Continue Zosyn. Vancomycin discontinued. 3. Lactic acidosis: Improved. Lactic acidosis may be secondary to hypovolemia, dehydration. Continue IV fluids. 4. Hepatic encephalopathy: Serum ammonia improved. Continue lactulose. Appreciate gastroenterology recommendations. 5. Transaminitis, jaundice: Possible alcoholic hepatitis. LFTs are elevated. CT shows fatty liver. Appreciate GI recommendations. Hepatitis panel is negative. Mitochondria M2 elevated 29.4. Monitor labs. 6. Acute kidney injury: Likely secondary to dehydration, poor oral intake. Continue IV fluids. Monitor labs. 7. Alcohol abuse: Last reported drink was 04/30/16. The patient states that he drinks 3-4 beers daily. Withdrawal precautions. Continue CIWA protocol. Has not been requiring lorazepam. Continue thiamine, folate, multivitamin. 8. Tobacco abuse: Patient counseled to quit smoking. Nicotine patch. 9. Coagulopathy: INR is trending down. Patient is not on anticoagulation. Elevated INR is likely secondary to chronic alcohol abuse, liver disease. Monitor labs. 10. Macrocytic anemia, thrombocytopenia: Likely secondary to alcohol abuse, liver disease. Monitor labs. No apparent active bleeding at this time. 11. DVT prophylaxis: SCDs, LEWIS hose. Avoid chemical prophylaxis secondary to coagulopathy, anemia, thrombocytopenia. 12. Hypernatremia: no improvement with 0.45% NS change to D5W recheck BMP at 1800 and in AM 13. Decreased urine output: Check bladder scan and place Lamar catheter draining. Evidence of urinary retention. Continue IV fluids. BUN remains elevated, but creatinine has improved. 14. Deconditioning: consult PT and OT 15. GI bleed- black tarry stool, Hemoccult positive and decreasing H&H. GI following. recheck CBC in AM Discussed with nursing and patient. Written by Elza Dickens, acting as scribe for Dr. Garcia on 05/05/16 at 09:38. Discharge Planning The documentation accurately reflects the work performed [id number] by me on at 09:38. Elza Dickens May 05, 2016 09:39 Mateo Garcia MD May 05, 2016 09:45
[2016-05-05] MEDS: DEXTROSE 5% IN WATE 1000ML INJ 1,000 ML IV SCH ×2 (10:25→21:05)
[2016-05-05] MEDS ORDERED: Vancomycin Consult Pharmacy 1 EA OTHER SCH (10:45)
--- NOTE | 2016-05-05 10:49 | HHI.IDPN ---
Subjective Subjective Remarks Notes reviewed No fever On nasal O2, looks tachypneic today More awake LFT continues to rise Hepatitis serology negative WBC rising Bladder scan volume high, tinsley placed yesterday Antibiotics Zosyn Past Medical History Tonsillectomy Heavy ETOH Smoker Allergies: Coded Allergies: No Known Allergies (Unverified , 05/01/16) Objective . Vital Signs Date Time Temp Pulse Resp B/P Pulse Ox O2 Delivery O2 Flow Rate FiO2 05/05/16 10:00 106 05/05/16 09:00 98 05/05/16 08:00 82 05/05/16 07:00 97.7 94 30 100/51 95 05/05/16 07:00 91 05/05/16 05:00 92 05/05/16 04:41 97.6 90 28 93/55 96 05/05/16 04:00 81 05/05/16 03:01 97.6 90 24 89/58 98 05/05/16 03:00 92 05/05/16 02:00 90 05/05/16 01:00 98.2 91 22 93/48 98 05/05/16 01:00 90 05/05/16 00:00 90 05/04/16 23:25 93 87/50 97 05/04/16 23:23 97.9 91 22 82/46 97 05/04/16 23:00 92 05/04/16 22:00 92 05/04/16 21:00 94 05/04/16 20:01 97.7 91 24 86/47 97 05/04/16 20:00 91 05/04/16 18:00 93 05/04/16 17:24 95 Nasal Cannula 3.00 05/04/16 17:00 93 05/04/16 16:00 87 05/04/16 15:00 99.6 88 25 96/57 95 05/04/16 15:00 101 05/04/16 14:00 97 05/04/16 13:00 100 05/04/16 12:00 99 05/04/16 11:00 99.7 102 21 102/57 97 05/04/16 11:00 100 05/04/16 05/04/16 05/05/16 15:00 23:00 07:00 Intake Total 800 ml 2308 ml Output Total 700 ml 350 ml Balance 100 ml 1958 ml Intake Oral 100 ml 15 ml IV Total 700 ml 2293 ml Output Urine Total 700 ml 350 ml Bladder Scan Volume Amount 803 ml # Bowel Movements 1 1 . Laboratory Tests Test 05/04/16 05/05/16 04:50 03:44 White Blood Count 19.0 TH/MM3 20.0 TH/MM3 Red Blood Count 2.58 MIL/MM3 2.45 MIL/MM3 Hemoglobin 9.1 GM/DL 8.8 GM/DL Hematocrit 28.8 % 27.9 % Mean Corpuscular Volume 111.4 FL 113.8 FL Mean Corpuscular Hemoglobin 35.3 PG 35.7 PG Mean Corpuscular Hemoglobin 31.7 % 31.3 % Concent Red Cell Distribution Width 15.6 % 16.1 % Platelet Count 95 TH/MM3 84 TH/MM3 Mean Platelet Volume 8.1 FL 9.2 FL Neutrophils (%) (Auto) 82.3 % Lymphocytes (%) (Auto) 11.2 % Monocytes (%) (Auto) 5.4 % Eosinophils (%) (Auto) 0.4 % Basophils (%) (Auto) 0.7 % Neutrophils # (Auto) 16.5 TH/MM3 Lymphocytes # (Auto) 2.2 TH/MM3 Monocytes # (Auto) 1.1 TH/MM3 Eosinophils # (Auto) 0.1 TH/MM3 Basophils # (Auto) 0.1 TH/MM3 CBC Comment AUTO DIFF Differential Total Cells 100 Counted Neutrophils % (Manual) 59 % Band Neutrophils % 21 % Lymphocytes % 9 % Monocytes % 6 % Neutrophils # (Manual) 17.0 TH/MM3 Metamyelocytes 5 % Nucleated Red Blood Cells 66 /100 WBC Differential Comment FINAL DIFF MANUAL Platelet Estimate LOW Platelet Morphology Comment ENLARGED Polychromasia 2.5 % Target Cells 1+ Laboratory Tests Test 05/04/16 05/05/16 04:50 03:44 Sodium Level 154 MEQ/L 155 MEQ/L Potassium Level 4.0 MEQ/L 3.9 MEQ/L Chloride Level 120 MEQ/L 123 MEQ/L Carbon Dioxide Level 26.0 MEQ/L 23.3 MEQ/L Anion Gap 8 MEQ/L 9 MEQ/L Blood Urea Nitrogen 25 MG/DL 23 MG/DL Creatinine 0.90 MG/DL 0.82 MG/DL Estimat Glomerular Filtration 85 ML/MIN 95 ML/MIN Rate Random Glucose 86 MG/DL 83 MG/DL Calcium Level 8.8 MG/DL 8.6 MG/DL Total Bilirubin 5.2 MG/DL 5.7 MG/DL Direct Bilirubin 4.2 MG/DL Indirect Bilirubin 1.0 MG/DL Aspartate Amino Transf 198 U/L 266 U/L (AST/SGOT) Alanine Aminotransferase 123 U/L 139 U/L (ALT/SGPT) Alkaline Phosphatase 199 U/L 193 U/L Ammonia 27 MCMOL/L Total Protein 4.2 GM/DL 4.0 GM/DL Albumin 1.7 GM/DL 1.6 GM/DL Magnesium Level 2.2 MG/DL Microbiology Date/Time Procedure Status Source Growth 05/02/16 18:05 Aerobic Blood Culture - Preliminary Resulted Blood Arterial Line NO GROWTH IN 2 DAYS 05/02/16 18:05 Anaerobic Blood Culture - Preliminary Resulted Blood Arterial Line NO GROWTH IN 2 DAYS 05/02/16 18:10 Aerobic Blood Culture - Preliminary Resulted Blood Arterial Line NO GROWTH IN 2 DAYS 05/02/16 18:10 Anaerobic Blood Culture - Preliminary Resulted Blood Arterial Line NO GROWTH IN 2 DAYS 05/04/16 15:36 Stool Occult Blood ([facility]) - Final Complete Stool Stool HEMOCCULT POSITIVE Imaging Gall Bladder Ultrasound 05/02/16 0000 Signed Impressions: Service Date/Time: Monday, May 02, 2016 16:32 - CONCLUSION: Minimal debris in the gallbladder with normal common duct. I do not see ancillary signs of acute cholecystitis. Mild fatty replacement to the liver. Jarad Alejandra MD FACR Head CT 05/01/16 1358 Signed Impressions: Service Date/Time: April 15:14 - CONCLUSION: Normal examination. Doe Foote MD Chest X-Ray 05/01/16 1355 Signed Impressions: Service Date/Time: April 14:28 - CONCLUSION: Normal examination. Numerous healed left-sided rib fractures. Doe Foote MD Chest CT 05/01/16 0000 Signed Impressions: Service Date/Time: April 15:18 - CONCLUSION: Some atelectasis both lung bases. Markedly fatty liver. Doe Foote MD Abdomen/Pelvis CT 05/01/16 0000 Signed Impressions: Service Date/Time: April 15:18 - CONCLUSION: The gallbladder hss markedly dense contents may be related to iodinated contrast. The liver is markedly fatty. No evidence of free fluid or solid organ mass. Bladder wall is mildly thickened without focal mass. Doe Foote MD Physical Exam GENERAL: More awake, tachypneic. SKIN: Warm and moist. Has jaundice. No generalized rash or ecchymosis. HEAD: Atraumatic. Normocephalic. No temporal or scalp tenderness. EYES: [place] conjunctivae. Has scleral icterus. No injection or drainage. ENT: Nose without bleeding, or purulent drainage. Dry oral mucosa, poor dentition. NECK: Trachea midline. No JVD or lymphadenopathy. Supple, nontender, no meningeal signs. CARDIOVASCULAR: Regular rate and rhythm without murmurs, gallops, or rubs. RESPIRATORY: Decreased BS whole lung castro, bilaterally GASTROINTESTINAL: Abdomen soft, nondistended, bowel sounds are present and hypoactive. Liver edge is enlarged and more than 5 fingerbreadths below the right coastal margin. Question palpable gallbladder. Has mild tenderness on palpation, no guarding or rebound. MUSCULOSKELETAL: Extremities without clubbing, cyanosis, or edema. No joint effusion, or edema noted. No calf tenderness. Negative Homans sign bilaterally. Has some dry healing abrasion L knee NEUROLOGICAL: Awake, following LINE: PIV with no evidence of infection PSYCH: Unable to assess : tinsley in place Assessment & Plan Remarks IMPRESSION Sepsis, has lethargy, fever, acidosis, tachycardia, concern with aspiration PNA - has weak moist cough - no evidence of cholecystitis on US - has most likely ETOH hepatitis Known ETOH abuse Encephalopathy due to sepsis, liver disease ETOH hepatitis Leukocytsosi worse RECOMMENDATION Continue Zosyn Follow C/S Repeat CXR UA and C/S Monitor temps Follow CBC Add Vancomycin Mireya Mora MD May 05, 2016 10:49
[2016-05-05] MEDS ORDERED: VANCOMYCIN INJ 1,000 MG in SODIUM CHLOR 0.9% 250 ML INJ 250 ML IV ONE (11:00)
--- NOTE | 2016-05-05 11:14 | HHI.GIFU ---
Subjective Remarks Patient continue to be lethargic, not verbal, not able to answer questions, nurse in the room, reports black tarry stools last night and today. No nausea or vomiting, however, patient not eating. Objective Vitals I&O Vital Signs Date Time Temp Pulse Resp B/P Pulse Ox O2 Delivery O2 Flow Rate FiO2 05/05/16 10:00 106 05/05/16 09:00 98 05/05/16 08:00 82 05/05/16 07:00 97.7 94 30 100/51 95 05/05/16 07:00 91 05/05/16 05:00 92 05/05/16 04:41 97.6 90 28 93/55 96 05/05/16 04:00 81 05/05/16 03:01 97.6 90 24 89/58 98 05/05/16 03:00 92 05/05/16 02:00 90 05/05/16 01:00 98.2 91 22 93/48 98 05/05/16 01:00 90 05/05/16 00:00 90 05/04/16 23:25 93 87/50 97 05/04/16 23:23 97.9 91 22 82/46 97 05/04/16 23:00 92 05/04/16 22:00 92 05/04/16 21:00 94 05/04/16 20:01 97.7 91 24 86/47 97 05/04/16 20:00 91 05/04/16 18:00 93 05/04/16 17:24 95 Nasal Cannula 3.00 05/04/16 17:00 93 05/04/16 16:00 87 05/04/16 15:00 99.6 88 25 96/57 95 05/04/16 15:00 101 05/04/16 14:00 97 05/04/16 13:00 100 05/04/16 12:00 99 I/O 05/04/16 05/04/16 05/04/16 05/05/16 05/05/16 05/05/16 07:00 15:00 23:00 07:00 15:00 23:00 Intake Total 1844 ml 800 ml 2308 ml Output Total 350 ml 700 ml 350 ml Balance 1494 ml 100 ml 1958 ml Intake Oral 15 ml 100 ml 15 ml IV Total 1829 ml 700 ml 2293 ml Output Urine Total 350 ml 700 ml 350 ml Bladder Scan Volume Amount 803 ml # Bowel Movements 0 1 1 Laboratory Laboratory Tests Test 05/05/16 03:44 White Blood Count 20.0 Red Blood Count 2.45 Hemoglobin 8.8 Hematocrit 27.9 Mean Corpuscular Volume 113.8 Mean Corpuscular Hemoglobin 35.7 Mean Corpuscular Hemoglobin 31.3 Concent Red Cell Distribution Width 16.1 Platelet Count 84 Mean Platelet Volume 9.2 Neutrophils (%) (Auto) 82.3 Lymphocytes (%) (Auto) 11.2 Monocytes (%) (Auto) 5.4 Eosinophils (%) (Auto) 0.4 Basophils (%) (Auto) 0.7 Neutrophils # (Auto) 16.5 Lymphocytes # (Auto) 2.2 Monocytes # (Auto) 1.1 Eosinophils # (Auto) 0.1 Basophils # (Auto) 0.1 CBC Comment AUTO DIFF Differential Total Cells 100 Counted Neutrophils % (Manual) 59 Band Neutrophils % 21 Lymphocytes % 9 Monocytes % 6 Neutrophils # (Manual) 17.0 Metamyelocytes 5 Nucleated Red Blood Cells 66 Differential Comment FINAL DIFF MANUAL Platelet Estimate LOW Platelet Morphology Comment ENLARGED Polychromasia 2.5 Target Cells 1+ Prothrombin Time 14.6 Prothromb Time International 1.3 Ratio Sodium Level 155 Potassium Level 3.9 Chloride Level 123 Carbon Dioxide Level 23.3 Anion Gap 9 Blood Urea Nitrogen 23 Creatinine 0.82 Estimat Glomerular Filtration 95 Rate Random Glucose 83 Calcium Level 8.6 Magnesium Level 2.2 Total Bilirubin 5.7 Aspartate Amino Transf 266 (AST/SGOT) Alanine Aminotransferase 139 (ALT/SGPT) Alkaline Phosphatase 193 Total Protein 4.0 Albumin 1.6 Date/Time Procedure Status Source Growth 05/04/16 15:36 Stool Occult Blood ([facility]) - Final Complete Stool Stool HEMOCCULT POSITIVE 05/02/16 18:10 Aerobic Blood Culture - Preliminary Resulted Blood Arterial Line NO GROWTH IN 2 DAYS 05/02/16 18:10 Anaerobic Blood Culture - Preliminary Resulted Blood Arterial Line NO GROWTH IN 2 DAYS 05/01/16 17:50 Influenza Types A,B Antigen ([facility]) - Final Complete Nasal Aspirate NEGATIVE FOR FLU A AND B ANTIGEN.... Imaging Last Impressions Gall Bladder Ultrasound 05/02/16 0000 Signed Impressions: Service Date/Time: Monday, May 02, 2016 16:32 - CONCLUSION: Minimal debris in the gallbladder with normal common duct. I do not see ancillary signs of acute cholecystitis. Mild fatty replacement to the liver. Jarad Alejandra MD FACR Head CT 05/01/16 1358 Signed Impressions: Service Date/Time: April 15:14 - CONCLUSION: Normal examination. Doe Foote MD Chest X-Ray 05/01/16 1355 Signed Impressions: Service Date/Time: April 14:28 - CONCLUSION: Normal examination. Numerous healed left-sided rib fractures. Doe Foote MD Chest CT 05/01/16 0000 Signed Impressions: Service Date/Time: , May 01, 2016 15:18 - CONCLUSION: Some atelectasis both lung bases. Markedly fatty liver. Doe Foote MD Abdomen/Pelvis CT 05/01/16 0000 Signed Impressions: Service Date/Time: April 15:18 - CONCLUSION: The gallbladder hss markedly dense contents may be related to iodinated contrast. The liver is markedly fatty. No evidence of free fluid or solid organ mass. Bladder wall is mildly thickened without focal mass. Doe Foote MD Physical Exam HEENT: Normocephalic; atraumatic; + jaundice. CHEST: Scattered rhonchi CARDIAC: tachycardiac ABDOMEN: Soft, nondistended, nontender; hepatosplenomegaly; bowel sounds are present in all four quadrants. EXTREMITIES: No clubbing, cyanosis, or edema. SKIN: Normal; no rash; + jaundice. CLINICAL LAW PROFESSOR: No focal deficits; Lethargic. Assessment and Plan Plan - Transaminitis/? liver failure- LFTs continue to rise.Toxicology negative , hepatitis panel negative. DAFNE P,ASMA P, AMA29.4, ceruloplasmin P, alpha , celiac P, iron sat 90.5, ferritin 967, Hfe pending No able to able to obtain any information, patient is currently very lethargic, not able to provided any information, couldn't open his eyes through the entire physical exam, therefore, HPI was obtained from EMR. Patient with alcohol and tobacco abuse , last drink was Sunday 04/30, had 3-4 beers. Abdomen/Pelvis CT (05/01/16)-------> The gallbladder has markedly dense contents may be related to iodinated contrast. The liver is markedly fatty. No evidence of free fluid or solid organ mass. Bladder wall is mildly thickened without focal mass. Gall Bladder Ultrasound (05/02/16)---> Minimal debris in the gallbladder with normal common duct. I do not see ancillary signs of acute cholecystitis. Mild fatty replacement to the liver. - Anemia-patient was tested positive for guaiac and black tarry stools reported last night and today - SIRS- elevated lactic acid, hypoxemia, tachycardiac , low grade fever, ID on the case, abx - AMS/elevated ammonia- CT of head negative, ammonia normalized with lactulose - Acute renal failure - Coagulopathy - thrombocytopenia - Alcohol abuse- according to EMR, pt remains lethargic, not able to provide information Plan: - Clear liquids - Await DAFNE, ASMA, Celiac, ceruloplasmin, and Hfe - LFTs,AFP, CBC, PT/INR in am - Will add Protonix 40 mg BID - monitor hh - Transfuse as needed - Notify GI for active bleed - Will need EGD/colonoscopy once medically stable - Monitor labs - Supportive care - Patient seen and examined by Dr. Espinal and myself and this note is written on his behalf. Devi Ro May 05, 2016 11:14
[2016-05-05] MEDS ORDERED: VANCOMYCIN 1,000 MG/NS 250 ML IV ONE ×2 (11:45)
[2016-05-05] MEDS: PANTOPRAZOLE SODIUM 40 MG VIAL IV PUSH SCH (12:01)
--- NOTE | 2016-05-05 12:47 | RADRPT ---
EXAM DATE/TIME: 05/05/2016 10:51 [facility] COMPARISON: CT THORAX W/O CONTRAST, May 01, 2016, 15:18. CHEST SINGLE AP, May 01, 2016, 14:28. INDICATIONS : Short of breath, possible pneumonia MEDICAL HISTORY : fever. SURGICAL HISTORY : None. ENCOUNTER: Initial ACUITY: 4 - 6 days PAIN SCORE: Non-responsive. LOCATION: Bilateral chest FINDINGS: Portable AP view of the chest demonstrates a normal-sized cardiac silhouette. There is mild streaky b ibasilar opacity. No effusion or pneumothorax is identified. The bones and soft tissues demonstrate n o acute finding. CONCLUSION: Mild streaky bibasilar airspace opacity could represent atelectasis or consolidation. Based on the cu rrent appearance and prior chest CT, atelectasis is favored. Germain Gamez MD on May 05, 2016 at 12:44 Board Certified Radiologist. This report was verified electronically.
[2016-05-05 13:29] LABS: BLOOD, URINE NEG (NEG); COMMENT (UR) CULT NOT INDICATED; CULTURE IF INDICATED CULT NOT INDICATED; GLUCOSE,URINE NEG (NEG); KETONE, URINE 10 mg/dL (NEG); NITRITE,URINE NEG (NEG); SQUAMOUS EPITHELIAL CELL URINE 1 /hpf (0-5)
[2016-05-05 13:36] LABS: URINE COLOR DARK-BROWN (YELLW/STRAW)
--- NOTE | 2016-05-05 15:39 | HHI.PR ---
Addendum to Inpatient Note Addendum Reason: Additional Documentation Additional Information I was called by the nurse because the patient was becoming less responsive. This morning he had been answering yes/no questions. Now he is nonverbal. He does turn his head and track to voice, but does not follow commands. His pupils are not equal, right>left. Breathing is somewhat labored. Breath sounds are coarse with upper airway noise as well. [facility] called. Stroke alert called. STAT head CT ordered. Neurology consult requested STAT. Transfer to ICU. Consult trackman. 45 minutes total spent in critical care management. Mateo Garcia MD May 05, 2016 15:39
[2016-05-05] MEDS ORDERED: FUROSEMIDE 20 MG/2 ML VIAL IV PUSH ONE (15:45)
--- NOTE | 2016-05-05 16:04 | RADRPT ---
EXAM DATE/TIME: 05/05/2016 15:47 [facility] COMPARISON: CT BRAIN W/O CONTRAST, May 01, 2016, 15:14. INDICATIONS : Stroke alert. Altered mental status. RADIATION DOSE: 56.35 CTDIvol (mGy) This report was called by Dr. Gamez to Dr. Garcia at 4: 01 PM on 05/05/2016. MEDICAL HISTORY : Non-responsive. SURGICAL HISTORY : Non-responsive. ENCOUNTER: Initial ACUITY: 1 day PAIN SCALE: Non-responsive LOCATION: TECHNIQUE: Multiple contiguous axial images were obtained of the head. Using automated exposure control and adj ustment of the mA and/or kV according to patient size, radiation dose was kept as low as reasonably a chievable to obtain optimal diagnostic quality images. FINDINGS: CEREBRUM: There is generalized atrophy. Mild periventricular white matter low-attenuation is present. Ventricle s are normal in size. No evidence of midline shift, mass lesion, hemorrhage or acute infarction. No extra-axial fluid collections are seen. POSTERIOR FOSSA: The cerebellum and brainstem demonstrate no acute finding. The 4th ventricle is midline. The cerebe llopontine angle is unremarkable. EXTRACRANIAL: Visualized sinuses are clear. SKULL: The calvaria is intact. No evidence of skull fracture. CONCLUSION: Stable noncontrast head CT. No acute intracranial abnormality is identified. Germain Gamez MD on May 05, 2016 at 15:59 Board Certified Radiologist. This report was verified electronically.
[2016-05-05 16:38] LABS: BLOOD GAS HCO3 21 mmol/L (22-26); BLOOD GAS METHEMOGLOBIN 1.7 % (0-2); BLOOD GAS O2 HGB SATURATION 85 % (90-100); BLOOD GAS OXYGEN CONTENT 12.1 Vol % (12.0-20.0); BLOOD GAS PCO2 35 mmHg (38-42); BLOOD GAS PO2 57 mmHG (61-120); BLOOD GAS TOTAL HGB 10.1 G/DL (12.0-16.0); CRITICAL VALUE YES; TEMP CORR TO 98.6
[2016-05-05 16:39] LABS: DRAW SITE LT RADIAL; LITER FLOW 2 L/M; NUMBER OF ARTERIAL PUNCTURES 1; OXYGEN DEVICE NASAL CANNULA; STAT YES; ULNAR PULSE PRESENT
[2016-05-05 16:44] LABS: AUTOMATED NEUTROPHIL # 18.3 TH/MM3 (1.8-7.7); BASOPHIL # 0.2 TH/MM3 (0-0.2); EOSINOPHIL # 0.1 TH/MM3 (0-0.4); EOSINOPHIL % 0.3 % (0.0-4.0); HEMATOCRIT 29.4 % (39.0-51.0); LYMPH % 12.3 % (9.0-44.0); LYMPHOCYTE # 2.8 TH/MM3 (1.0-4.8); MEAN CORPUSCULAR HEMOGLOBIN 35.8 PG (27.0-34.0); MEAN CORPUSCULAR HGB CONC 31.1 % (32.0-36.0); MONO % 5.3 % (0.0-8.0); NEUT % 81.1 % (16.0-70.0); PLATELET COUNT 87 TH/MM3 (150-450); RED BLOOD COUNT 2.56 MIL/MM3 (4.50-5.90); RED CELL DISTRIBUTION WIDTH 16.7 % (11.6-17.2); WHITE BLOOD COUNT 22.5 TH/MM3 (4.0-11.0)
[2016-05-05 16:52] LABS: HEMO FLAGS AUTO DIFF
[2016-05-05 17:17] LABS: APTT (PATIENT) 30.2 SEC (24.3-30.1); INTERNATIONAL NORMALIZED RATIO 1.2 RATIO; PROTHROMBIN TIME - PATIENT 13.9 SEC (9.8-11.6)
[2016-05-05 17:26] LABS: BANDS 4 % (0-6); CORRECTED NUCLEATED RBC 37 /100 WBC (0-0); METAMYELOCYTES 8 % (0-1); MYELOCYTES 2 % (0-0); NEUTROPHIL # MANUAL DIFF 20.5 TH/MM3 (1.8-7.7); OVALOCYTES 1+ (NORMAL); PLASMA CELLS 1 % (0-0); POLYS (SEG NEUTROPHILS) 76 % (16-70); PROMYELOCYTES 1 % (0-0); WBC DIFF SAMPLE 100
[2016-05-05 17:27] LABS: HOWELL-JOLLY BODIES PRESENT (NONE SEEN); PLATELET ESTIMATE SMEAR LOW (NORMAL); PLATELET MORPHOLOGY NORMAL (NORMAL); SCAN/DIFF FINAL DIFF MANUAL
[2016-05-05] MEDS ORDERED: IOHEXOL 350 MG/ML 10 ML VIAL (for RAD DIAG) IV ONE (17:29)
[2016-05-05 17:36] LABS: BICARBONATE 23.4 MEQ/L (21.0-32.0)
--- NOTE | 2016-05-05 17:41 | PD.CONS ---
HPI Service Critical Care Medicine Consult Requested By Primary Care Physician No Primary Care Physician History of Present Illness 65-year-old male, brought to the hospital after he was found unresponsive in his mobile home. He was hypotensive, with low oxygen saturation, and was unresponsive. In the ED he had a normal white count, and was afebrile. Chest x -ray showed some atelectasis. CT of the chest did not show any significant abnormality. CT of the abdomen and pelvis showed a large liver, gallbladder with some sludge or contrast, and some basilar infiltrates. He was admitted on nasal O2 however rapid response team was called due to patient's hypoxemia and hypotension. During the assessment he was found to have a right facial droop and the call was changed to stroke alert. He had a negative CT of the head and is now admitted to ICU with low level of consciousness lethargy and hypoxemia. He apparently was more awake yesterday, and is lethargic today again. His LFTs and ammonia level are markedly elevated. Review of Systems ROS Unable to obtain due to patient's altered mental status Past Family Social History Allergies: Coded Allergies: No Known Allergies (Unverified , 05/01/16) Past Medical History No significant past medical history Past Surgical History Tonsillectomy Reported Medications Reported Meds & Active Scripts Active No Active Prescriptions or Reported Medications Active Ordered Medications Current Medications Medications (Trade) Dose Ordered Sig/Pavel Route PRN Reason Start Time Stop Time Status Last Admin Dose Admin Dextrose (D50w (Vial) Inj) 25 ml UNSCH PRN IV PUSH HYPOGLYCEMIA-SEE COMMENTS 05/01/16 17:00 Insulin Human Regular (NovoLIN R SUPPLEMENTAL SCALE) 1 Q6HR SQ 05/01/16 18:00 05/02/16 18:00 IV Flush (NS Flush) 2 ml UNSCH PRN FLUSH FLUSH AFTER USING IV ACCESS 05/01/16 18:15 IV Flush (NS Flush) 2 ml BID FLUSH 05/01/16 21:00 05/04/16 20:16 Ondansetron HCl (Zofran Inj) 4 mg Q6H PRN IVP NAUSEA OR VOMITING 05/01/16 18:15 Magnesium Hydroxide (Milk Of Magnesia Liq) 30 ml Q12H PRN PO CONSTIPATION 05/01/16 18:15 Naloxone HCl (Narcan Inj) 0.4 mg UNSCH PRN IV SEE LABEL COMMENTS 05/01/16 18:15 Flumazenil (Romazicon Inj) 0.2 mg Q1M PRN IV PUSH SEE LABEL COMMENTS 05/01/16 18:15 Lorazepam (Ativan) 1 mg Q4H PRN PO CIWA 8 - 10 05/01/16 18:15 05/02/16 05:51 Lorazepam (Ativan Inj) 1 mg Q4H PRN IV PUSH CIWA 8 - 10 05/01/16 18:15 Lorazepam (Ativan) 2 mg Q2H PRN PO CIWA 11-14 05/01/16 18:15 Lorazepam (Ativan Inj) 2 mg Q2H PRN IV PUSH CIWA 11-14 05/01/16 18:15 Lorazepam (Ativan Inj) 2 mg Q1H PRN IV PUSH CIWA 15-20 05/01/16 18:15 Lorazepam (Ativan Inj) 2 mg Q15M PRN IV PUSH CIWA > 20 05/01/16 18:15 Lactulose 30 ml 30 ml BID PO 05/01/16 21:00 05/05/16 09:32 Multivitamins/ Folic Acid/Sodium Chloride (Mvi-12 Inj/ Folvite Inj/NS 500 ml Inj) 510.2 ml @ 125 mls/hr Q24H IV 05/01/16 21:00 05/06/16 20:59 05/04/16 20:12 Thiamine HCl (Vitamin B1) 100 mg DAILY PO 05/05/16 09:00 05/05/16 09:32 Nicotine 1 patch 1 patch DAILY PRN TD nicotine withdrawal 05/01/16 18:45 Piperacillin Sod/ Tazobactam Sod 50 ml @ 100 mls/hr Q6H IV 05/02/16 15:00 05/05/16 15:19 Dextrose 1,000 ml @ 75 mls/hr [id number] IV 05/05/16 09:30 05/05/16 10:25 Pharmacy Profile Note (Vancomycin Consult Pharmacy) 0 ml @ 0 mls/hr UNSCH OTHER 05/05/16 10:45 Pantoprazole Sodium 40 mg 40 mg Q12H IV PUSH 05/05/16 12:00 05/05/16 12:01 Vancomycin HCl/ Sodium Chloride (Vancomycin Inj/ NS 500 ml Inj) 515 ml @ 257.5 mls/ hr Q12H IV 05/06/16 06:00 Miscellaneous Information SPECIFIC LAB TO BE DRAWN:VANCOMCYIN TROUGH DATE TO... ONCE ONCE XX 05/07/16 05:45 05/07/16 05:46 Family History Noncontributory Social History Drinks whiskey daily and beer Smokes a pack per day No illicit drug abuse Physical Exam Vital Signs Vital Signs Date Time Temp Pulse Resp B/P Pulse Ox O2 Delivery O2 Flow Rate FiO2 05/05/16 15:40 95 3.50 05/05/16 15:00 97.1 103 28 108/53 92 05/05/16 15:00 104 05/05/16 14:00 102 05/05/16 13:00 102 05/05/16 12:00 102 05/05/16 11:00 99.0 107 32 91/59 93 05/05/16 11:00 95 05/05/16 10:00 106 05/05/16 09:00 98 05/05/16 08:00 82 05/05/16 07:00 97.7 94 30 100/51 95 05/05/16 07:00 91 05/05/16 05:00 92 05/05/16 04:41 97.6 90 28 93/55 96 05/05/16 04:00 81 05/05/16 03:01 97.6 90 24 89/58 98 05/05/16 03:00 92 05/05/16 02:00 90 05/05/16 01:00 98.2 91 22 93/48 98 05/05/16 01:00 90 05/05/16 00:00 90 05/04/16 23:25 93 87/50 97 05/04/16 23:23 97.9 91 22 82/46 97 05/04/16 23:00 92 05/04/16 22:00 92 05/04/16 21:00 94 05/04/16 20:01 97.7 91 24 86/47 97 05/04/16 20:00 91 05/04/16 18:00 93 Physical Exam GENERAL: Disheveled, old looking male SKIN: Warm and dry. HEAD: Normocephalic. EYES: Positive scleral icterus. No injection or drainage. NECK: Supple, trachea midline. No JVD or lymphadenopathy. CARDIOVASCULAR: Regular rate and rhythm without murmurs, gallops, or rubs. RESPIRATORY: Breath sounds equal bilaterally. No accessory muscle use. GASTROINTESTINAL: Abdomen soft, non-tender, nondistended. MUSCULOSKELETAL: No cyanosis, or edema. BACK: Nontender without obvious deformity. No CVA tenderness. EXTREMITIES: Vital Signs Date Time Temp Pulse Resp B/P Pulse Ox O2 Delivery O2 Flow Rate FiO2 05/05/16 15:40 95 3.50 05/05/16 15:00 97.1 103 28 108/53 05/04/16 17:24 Nasal Cannula Laboratory Laboratory Tests Test 05/05/16 05/05/16 05/05/16 05/05/16 03:44 12:53 16:12 16:20 White Blood Count 20.0 22.5 Red Blood Count 2.45 2.56 Hemoglobin 8.8 9.1 Hematocrit 27.9 29.4 Mean Corpuscular Volume 113.8 115.0 Mean Corpuscular Hemoglobin 35.7 35.8 Mean Corpuscular Hemoglobin 31.3 31.1 Concent Red Cell Distribution Width 16.1 16.7 Platelet Count 84 87 Mean Platelet Volume 9.2 9.1 Neutrophils (%) (Auto) 82.3 81.1 Lymphocytes (%) (Auto) 11.2 12.3 Monocytes (%) (Auto) 5.4 5.3 Eosinophils (%) (Auto) 0.4 0.3 Basophils (%) (Auto) 0.7 1.0 Neutrophils # (Auto) 16.5 18.3 Lymphocytes # (Auto) 2.2 2.8 Monocytes # (Auto) 1.1 1.2 Eosinophils # (Auto) 0.1 0.1 Basophils # (Auto) 0.1 0.2 CBC Comment AUTO DIFF AUTO DIFF Differential Total Cells 100 100 Counted Neutrophils % (Manual) 59 76 Band Neutrophils % 21 4 Lymphocytes % 9 4 Monocytes % 6 4 Neutrophils # (Manual) 17.0 20.5 Metamyelocytes 5 8 Nucleated Red Blood Cells 66 37 Differential Comment FINAL DIFF FINAL DIFF MANUAL MANUAL Platelet Estimate LOW LOW Platelet Morphology Comment ENLARGED NORMAL Polychromasia 2.5 Target Cells 1+ Prothrombin Time 14.6 13.9 Prothromb Time International 1.3 1.2 Ratio Sodium Level 155 Potassium Level 3.9 Chloride Level 123 Carbon Dioxide Level 23.3 Anion Gap 9 Blood Urea Nitrogen 23 Creatinine 0.82 Estimat Glomerular Filtration 95 Rate Random Glucose 83 Calcium Level 8.6 Magnesium Level 2.2 Total Bilirubin 5.7 Aspartate Amino Transf 266 (AST/SGOT) Alanine Aminotransferase 139 (ALT/SGPT) Alkaline Phosphatase 193 Total Protein 4.0 Albumin 1.6 Urine Color DARK-BROWN Urine Turbidity CLEAR Urine pH 6.0 Urine Specific [place] 1.040 Urine Protein 30 Urine Glucose (UA) NEG Urine Ketones 10 Urine Occult Blood NEG Urine Nitrite NEG Urine Bilirubin LARGE Urine Urobilinogen LESS THAN 2.0 Urine Leukocyte Esterase TRACE Urine RBC 4 Urine WBC 4 Urine Squamous Epithelial 1 Cells Microscopic Urinalysis Comment CULT NOT INDICATED Bedside Hemoglobin 9.9 Bedside Hematocrit 29.0 Myelocytes 2 Promyelocytes 1 Plasma Cells 1 Ovalocytes 1+ [employer] Bodies PRESENT Activated Partial 30.2 Thromboplast Time Fibrinogen 220 Bedside Sodium 153 Bedside Potassium 4.0 Bedside Chloride 120 Bedside Blood Urea Nitrogen 23 Bedside Creatinine 0.9 Bedside Glucose 107 Blood Type O POSITIVE Antibody Screen NEGATIVE Blood Bank Comment Blood Gas Puncture Site LT RADIAL Blood Gas Patient Temperature 98.6 Blood Gas HCO3 21 Blood Gas Base Excess -3.0 Blood Gas Oxygen Saturation 85 Arterial Blood pH 7.40 Arterial Blood Partial 35 Pressure CO2 Arterial Blood Partial 57 Pressure O2 Arterial Blood Oxygen Content 12.1 Arterial Blood 2.0 Carboxyhemoglobin Arterial Blood Methemoglobin 1.7 Blood Gas Hemoglobin 10.1 Oxygen Delivery Device NASAL CANNULA Blood Gas Liter Flow 2 Date/Time Procedure Status Source Growth 05/04/16 15:36 Stool Occult Blood ([facility]) - Final Complete Stool Stool HEMOCCULT POSITIVE 05/02/16 18:10 Aerobic Blood Culture - Preliminary Resulted Blood Arterial Line NO GROWTH IN 3 DAYS 05/02/16 18:10 Anaerobic Blood Culture - Preliminary Resulted Blood Arterial Line NO GROWTH IN 3 DAYS 05/01/16 17:50 Influenza Types A,B Antigen ([facility]) - Final Complete Nasal Aspirate NEGATIVE FOR FLU A AND B ANTIGEN.... 05/01/16 14:20 Aerobic Blood Culture - Final Resulted Blood Peripheral Staphylococcus Auricularis 05/01/16 14:20 Anaerobic Blood Culture - Preliminary Resulted Blood Peripheral NO GROWTH IN 4 DAYS Result Diagram: 05/05/16 1612 05/05/16 0344 Imaging Last [address] 05/05/16 0000 Signed Impressions: Service Date/Time: Thursday, May 05, 2016 15:47 - CONCLUSION: Stable noncontrast head CT. No acute intracranial abnormality is identified. Germain Gamez MD Chest X-Ray 05/05/16 0000 Signed Impressions: Service Date/Time: Thursday, May 05, 2016 10:51 - CONCLUSION: Mild streaky bibasilar airspace opacity could represent atelectasis or consolidation. Based on the current appearance and prior chest CT, atelectasis is favored. Germain Gamez MD Assessment and Plan Assessment and Plan Encephalopathy - multifactorial etiology - hepatic encephalopathy - SIRS/infection. - Head CT is negative, CT pending - Elevated ammonia level - Lactulose - Monitor trend - Not a candidate for TPA administration due to thrombocytopenia and melanotic stool SIRS: - fever, lactic acidosis. - Unclear source - Influenza negative - Follow cultures. - Zosyn. - ID consult appreciated Transaminitis, jaundice - Possible alcoholic hepatitis. - LFTs are elevated. - CT shows fatty liver. - Appreciate GI recommendations. - Hepatitis panel is negative. Acute kidney injury - Due to dehydration, - Continue aggressive IV fluids and albumin - Monitor labs and strict urine output History of Alcohol abuse - Withdrawal precautions. -CIWA protocol. Tobacco use disorder - Nicotine patch. Coagulopathy - Due to liver disease - INR is improving Melanotic stool - Workup per GI - IV Protonix Thrombocytopenia - Supportive care DVT GI prophylaxis - Teds SCDs IV Protonix Critical Care: The total critical care time was 35 minutes. Time to perform other separately billable procedures was not included in the critical care time. Vincent Fiore MD May 05, 2016 17:41
--- NOTE | 2016-05-05 18:10 | RADRPT ---
EXAM DATE/TIME: 05/05/2016 17:15 [facility] COMPARISON: No previous studies available for comparison. INDICATIONS : Post stroke alert. Eval carotids and COW. IV CONTRAST: 75 cc Omnipaque 350 (iohexol) IV ; Cumulative dose for multiple exams. RADIATION DOSE: 28.60 CTDIvol (mGy) MEDICAL HISTORY : Non-responsive. SURGICAL HISTORY : Non-responsive. ENCOUNTER: Subsequent ACUITY: 1 day PAIN SCALE: Non-responsive LOCATION: cranial TECHNIQUE: Volumetric scanning was performed using a multi-row detector CT scanner. The data was post processed with a variety of visualization algorithms including full volume maximum intensity projection, multi -planar sliding thin slab reformation, curved planar reformation, and surface rendering techniques. Using automated exposure control and adjustment of the mA and/or kV according to patient size, radiat ion dose was kept as low as reasonably achievable to obtain optimal diagnostic quality images. FINDINGS: There is excellent visualization of the major intracranial arteries out to the second-order branch ve ssels. There is no evidence for aneurysm, vessel truncation or stenosis, and no evidence for vascula r malformation. CONCLUSION: Intracranial arteries are within normal limits. Germain Oglesby MD on May 05, 2016 at 18:08 Board Certified Radiologist. This report was verified electronically.
--- NOTE | 2016-05-05 18:28 | RADRPT ---
EXAM DATE/TIME: 05/05/2016 17:48 [facility] COMPARISON: CT BRAIN W/O CONTRAST, May 05, 2016, 15:47. INDICATIONS : Stroke alert. Facial droop. MEDICAL HISTORY : ETOH use. SURGICAL HISTORY : ENCOUNTER: Initial ACUITY: 1 day PAIN SCORE: 0/10 LOCATION: cranial TECHNIQUE: Multiplanar, multisequence MRI of the brain was performed without contrast. FINDINGS: Study is motion degraded. CEREBRUM: The ventricles are normal for age. No evidence of midline shift, mass lesion, hemorrhage or acute in farction. No extraaxial fluid collections are seen. The pituitary gland and suprasellar cistern are normal in configuration. WHITE MATTER: No significant signal abnormalities are seen in the white matter. POSTERIOR FOSSA: The cerebellum and brainstem are intact. The 4th ventricle is midline. The cerebellopontine angle is unremarkable. The cerebellar tonsils are normal in position. DIFFUSION IMAGING: No focal areas of restricted diffusion are seen. No evidence of acute infarction. EXTRACRANIAL: The visualized portions of the orbits and paranasal sinuses are unremarkable. CONCLUSION: No acute infarct or other acute intracranial abnormality. Motion degraded study. Germain Oglesby MD on May 05, 2016 at 18:25 Board Certified Radiologist. This report was verified electronically.
--- NOTE | 2016-05-05 18:38 | RADRPT ---
EXAM DATE/TIME: 05/05/2016 17:15 [facility] COMPARISON: No previous studies available for comparison. INDICATIONS : Post stroke alert. Eval carotids and COW. IV CONTRAST: 75 cc Omnipaque 350 (iohexol) IV RADIATION DOSE: 17.66 CTDIvol (mGy) MEDICAL HISTORY : Non-responsive. SURGICAL HISTORY : Non-responsive. ENCOUNTER: Subsequent ACUITY: 1 day PAIN SCALE: Non-responsive LOCATION: neck Elevated flow velocities and ICA/CCA ratios have been found to correlate with increased degrees of vessel stenosis, calculated as percentage of diameter relative to a normal segment of distal ICA/CCA. TECHNIQUE: Volumetric scanning was performed using a multirow detector CT scanner. The data was post processed with a variety of visualization algorithms including full-volume maximum intensity projection, multip lanar sliding thin-slab reformation, curved-planar reformation, and surface-rendering techniques. Us ing automated exposure control and adjustment of the mA and/or kV according to patient size, radiatio n dose was kept as low as reasonably achievable to obtain optimal diagnostic quality images. FINDINGS: AORTIC ARCH: There is a three-vessel origin of the great vessels from the aorta. No evidence of ostial narrowing. RIGHT CAROTID: The common carotid artery is intact. The carotid bulb has a normal configuration without ulceration o r narrowing. There is mild plaque involving the proximal 2.8 cm of the right internal carotid artery with 25% or less narrowing.. The external carotid artery is intact. LEFT CAROTID: The common carotid artery is intact. The carotid bulb has a normal configuration without ulceration or narrowing. There is minimal calcified plaque involving the proximal 1 cm of the left internal pham tid artery. 10% or less narrowing.. The external carotid artery is intact. VERTEBRALS: Mild atherosclerotic plaque at both origins. No evidence of significant narrowing. CONCLUSION: Bilateral carotid bifurcation atherosclerosis, mild on the right and minimal on the left. There is al so mild plaque of both vertebral artery origins. No significant narrowing seen. Germain Oglesby MD on May 05, 2016 at 18:34 Board Certified Radiologist. This report was verified electronically.
[2016-05-05] MEDS: ASPIRIN 81 MG CHEW TAB CHEW SCH (18:45)
[2016-05-05] MEDS: ALBUMIN HUMAN 5% 25 GM/500 ML BOTTLE IV SCH (19:01)
[2016-05-05] MEDS ORDERED: SODIUM CHLOR 0.9% 1000 ML INJ 1,000 ML IV ONE (19:15)
[2016-05-05] MEDS ORDERED: CHLORHEXIDINE GLUCONATE 2 % 1 PACK (2 CLOTHS)(extra cloths) TOP PRN (19:30)
[2016-05-05 20:13] LABS: THYROXINE (T4) 4.5 MCG/DL (4.5-12.1)
--- NOTE | 2016-05-05 20:33 | RADRPT ---
EXAM DATE/TIME: 05/05/2016 19:51 [facility] COMPARISON: CHEST SINGLE AP, May 05, 2016, 10:51. INDICATIONS : Embolus, hypoxia and syncope. DOSE: 8.5 mCi Tc99m MAA IV 0.69 mCi Tc99m DTPA aerosol MEDICAL HISTORY : None SURGICAL HISTORY : Tonsillectomy. ENCOUNTER: Initial ACUITY: 1 day PAIN SCALE: Non-responsive LOCATION: Chest. TECHNIQUE: Following five minutes of tidal breathing of DTPA aerosol, planar images of the lungs were performed in eight projections. The patient was then injected with MAA, and eight-view perfusion scan was perf ormed. FINDINGS: There is moderately heterogeneous pattern of aerosol delivery to the periphery of both lungs. The perfusion lung scan demonstrates a homogenous pattern of uptake in both lungs. No segmental or s ubsegmental defects are seen. CONCLUSION: Heterogeneous perfusion. Study is low probability for pulmonary embolus. Germain Oglesby MD on May 05, 2016 at 20:31 Board Certified Radiologist. This report was verified electronically.
[2016-05-05] MEDS: MULTIVITAMIN INJ 10 ML, FOLIC ACID INJ 1 MG in SODIUM CHLORID 0.9% 500 ML INJ 500 ML IV SCH (21:39)
[2016-05-05] MEDS: NOREPINEPHRINE 4 MG/D5W 250 ML IV SCH (22:42)
[2016-05-05 22:50] LABS: BICARBONATE 21.8 MEQ/L (21.0-32.0); POTASSIUM 4.1 MEQ/L (3.5-5.1)
[2016-05-06] VITALS (12 sets, daily range): BP systolic 83–99; BP diastolic 50–59; PULSE 79–95; RESP 20–28; TEMP 98.3–100.3; O2SAT 93–100
[2016-05-06] MEDS: ALBUMIN HUMAN 5% 25 GM/500 ML BOTTLE IV SCH ×3 (00:03→12:00)
[2016-05-06] MEDS: PANTOPRAZOLE SODIUM 40 MG VIAL IV PUSH SCH ×3 (00:03→23:53)
[2016-05-06] MEDS: DEXTROSE 5% IN WATE 1000ML INJ 1,000 ML IV SCH ×4 (03:34→23:53)
[2016-05-06] MEDS: PIPERACIL-TAZO 3.375 GM PREMIX 50 ML IV SCH ×4 (03:34→20:09)
[2016-05-06] MEDS: CHLORHEXIDINE GLUCONATE 2 % 1 PACK (2 CLOTHS)(taper/protocol) TOP SCH (03:34)
[2016-05-06 05:08] LABS: BLOOD GAS BASE EXCESS -4.8 mmol/L (-2-2); BLOOD GAS CARBOXYHEMOGLOBIN 1.5 % (0-4); BLOOD GAS HCO3 20 mmol/L (22-26); BLOOD GAS O2 HGB SATURATION 91 % (90-100); BLOOD GAS OXYGEN CONTENT 9.4 Vol % (12.0-20.0); BLOOD GAS PCO2 36 mmHg (38-42); BLOOD GAS PO2 71 mmHg (61-120); BLOOD GAS TOTAL HGB 7.2 G/DL (12.0-16.0); CRITICAL VALUE NO; DRAW SITE LT RADIAL; FIO2 50 %; LITER FLOW 6 L/M; NUMBER OF ARTERIAL PUNCTURES 2; OXYGEN DEVICE Venti Mask; STAT NO; TEMP CORR TO 98.6; ULNAR PULSE PRESENT
[2016-05-06] MEDS: VANCOMYCIN 1,500 MG/NS 500 ML IV SCH ×4 (05:55→18:33)
[2016-05-06] MEDS: INSULIN NovoLIN REGULAR SUPPLEMENTAL SCALE SQ SCH ×5 (05:56→23:53)
[2016-05-06 07:04] LABS: AUTOMATED NEUTROPHIL # 14.1 TH/MM3 (1.8-7.7); BASOPHIL # 0.1 TH/MM3 (0-0.2); BASOPHIL % 0.9 % (0.0-2.0); EOSINOPHIL # 0.1 TH/MM3 (0-0.4); EOSINOPHIL % 0.9 % (0.0-4.0); HEMATOCRIT 22.8 % (39.0-51.0); LYMPH % 9.5 % (9.0-44.0); LYMPHOCYTE # 1.6 TH/MM3 (1.0-4.8); MEAN CELL VOLUME 116.6 FL (80.0-100.0); MEAN CORPUSCULAR HEMOGLOBIN 36.2 PG (27.0-34.0); NEUT % 84.7 % (16.0-70.0); PLATELET COUNT 76 TH/MM3 (150-450); RED BLOOD COUNT 1.95 MIL/MM3 (4.50-5.90); RED CELL DISTRIBUTION WIDTH 17.4 % (11.6-17.2); WHITE BLOOD COUNT 16.6 TH/MM3 (4.0-11.0)
--- NOTE | 2016-05-06 07:15 | MB ---
cc: YADIEL RODRÍGUEZ M.D. DATE OF CONSULTATION: 05/05/2016 HISTORY OF PRESENT ILLNESS The patient is a 65-year-old man with a history of alcohol and tobacco use, no past medical history, found down in his home as a Germain [place]. Bystanders looked into his home, saw him on his couch responsive. His father was also unresponsive on the floor. He had a pulse ox of 75%. He woke up in the ER. Kept falling down since April 28. Last drink was Thursday on April 30. He had some mild confusion. He was brought into the hospital. He had been somewhat confused and then seemed to get a little bit worse over the last several days. At 7 o'clock this morning he was able to answer some questions but not all. By 11:00 a.m. he was unable to answer any questions and did not seem to be moving either arm well. A Stroke Alert was called about 4:00 p.m. today when the nursing staff thought it may be could not move the right arm, he seemed to be getting worse, and they subsequently called a Stroke Alert. At that time they said his right arm was flaccid but the onset was uncertain and certainly appeared it could even have been 12 hours prior of his problems and we did not give TPA. Nevertheless a CAT scan was done which was negative. REVIEW OF SYSTEMS Really unable to get from the patient. ALLERGIES No known drug allergies. FAMILY HISTORY Mother had lymphoma, . Father with a history of stroke. SOCIAL HISTORY He has smoked two packs a day since a teenager, drinks alcohol 3-4 beers a day. Lives with his father views. Usually independently ambulates. MEDICATIONS Current meds: 1. Vancomycin. 2. Albumin. 3. Lactulose. 4. Lasix. 5. Protonix. 6. Thiamine. 7. Piperacillin. 8. Multivitamin. 9. He got Ativan 1 mg on 05/02/2016. PHYSICAL EXAMINATION VITAL SIGNS: Afebrile. Blood pressure 108/53. He has been in sinus rhythm. Lowest O2 sat was 92. NECK: There were no carotid bruits. HEART: Regular rhythm. CHEST: He has some chest congestion. NEUROLOGIC: He is awake now. He can count fingers. His visual castro are full. Face appears symmetric. He can coal picker both of his arms off the bed symmetrically. He is generally weak throughout but moves all of his upper and lower extremities to command bilaterally and normal. Toes are downgoing bilaterally. Pinprick I could not tell. He was able to name my glasses well. LABORATORY DATA White count 22,000, hematocrit 29, platelet count 87,000. Hepatitis screen is negative. DAFNE is negative. Hemochromatosis pending. Urine drug screen was negative. UA: Large amount of bilirubin, no infection. INR when he initially came in was 18.9, this afternoon 13.9 with a PTT of 30.2. Albumin is 1.6. Troponin was negative. CPK is normal. Ammonia level was 27 yesterday. LFTs are elevated to about 120-200, total bili is 5. GFR is normal. Sodium was 154 today, has been slowly coming up. ABG was 7.4, 35 with a PO2 of 57, O2 sat 85%. IMAGING DATA MRI of the brain was performed. Official results are pending but no infarct is noted. MRI does not show any acute infarct nor chronic infarcts. There is some mild diffuse atrophy. There are no hemorrhages noted he. Chest x-ray today shows some atelectasis. CTA of the head was read as normal. CT scan of the brain was read as negative. CTA of the neck is pending. The films are not up yet. IMPRESSION AND RECOMMENDATIONS While it may have been a TIA, it certainly was not a stroke. I am always a little bit cautious in these metabolic patient's that present as Stroke Alerts because they are usually confused and unable to really follow commands well, and I suspect that is probably what occurred with him. For now I would just give him a baby aspirin a day. Will see with the CTA of the carotids. Will check a B12 level and his thyroid and an echocardiogram. I will be following him with you in the hospital. I note he has had for the most part negative blood cultures here. Staphylococcus was seen in one blood culture. At this point I would put his NIH stroke scale as a zero. MD JACKELINE Lawton/HARDY /6:29 PM /6:55 AM
[2016-05-06 07:21] LABS: INTERNATIONAL NORMALIZED RATIO 1.3 RATIO; PROTHROMBIN TIME - PATIENT 14.1 SEC (9.8-11.6)
[2016-05-06 07:31] LABS: MAGNESIUM 2.1 MG/DL (1.5-2.5)
[2016-05-06 07:38] LABS: BICARBONATE 22.3 MEQ/L (21.0-32.0); INDIRECT BILIRUBIN 1.5 MG/DL (0.0-0.8); POTASSIUM 3.5 MEQ/L (3.5-5.1)
[2016-05-06 07:42] LABS: HEMO FLAGS AUTO DIFF
--- NOTE | 2016-05-06 08:01 | HHI.PR ---
Subjective Remarks sr Objective Vital Signs Date Time Temp Pulse Resp B/P Pulse Ox O2 Delivery O2 Flow Rate FiO2 05/06/16 07:45 97 Venturi Mask 50 05/06/16 06:00 88 05/06/16 04:00 89 05/06/16 04:00 100.3 89 28 99/57 93 05/06/16 03:53 93 Venturi Mask 6.00 50 05/06/16 02:00 89 05/06/16 00:00 99.8 86 20 83/54 100 05/06/16 00:00 79 05/05/16 22:00 79 05/05/16 20:51 95 Non-Rebreather 15.00 05/05/16 20:00 86 05/05/16 20:00 100.4 86 24 87/52 95 05/05/16 16:30 99 Non-Rebreather 15.00 05/05/16 16:00 99.0 106 25 87/53 92 05/05/16 15:40 95 3.50 05/05/16 15:00 97.1 103 28 108/53 92 05/05/16 15:00 104 05/05/16 14:00 102 05/05/16 13:00 102 05/05/16 12:00 102 05/05/16 11:00 99.0 107 32 91/59 93 05/05/16 11:00 95 05/05/16 10:00 106 05/05/16 09:00 98 05/05/16 08:00 82 I/O 05/05/16 05/05/16 05/05/16 05/06/16 05/06/16 05/06/16 07:00 15:00 23:00 07:00 15:00 23:00 Intake Total 2308 ml 4005 ml 2150 ml Output Total 350 ml 550 ml 325 ml Balance 1958 ml 3455 ml 1825 ml Intake Oral 15 ml IV Total 2293 ml 3505 ml 1150 ml Albumin 500 ml 1000 ml Output Urine Total 350 ml 550 ml 325 ml # Bowel Movements 1 2 1 Result Diagram: 05/06/16 0651 05/06/16 0631 Other Results cta x 2 neg mri neg Objective Remarks lethargicv but awakens and sticks out tongue and moves all 4 ext for me Assessment and Plan Assessment and Plan imp consider mazicon if gets too lethargic check eeg hepatic encephalopathy doubt tia no cva fu echo Sin Gupta MD May 06, 2016 08:01
--- NOTE | 2016-05-06 08:44 | HHI.CCPN ---
Subjective Remarks/Hospital Course 65-year-old male, brought to the hospital after he was found unresponsive in his mobile home. He was hypotensive, with low oxygen saturation, and was unresponsive. In the ED he had a normal white count, and was afebrile. Chest x -ray showed some atelectasis. CT of the chest did not show any significant abnormality. CT of the abdomen and pelvis showed a large liver, gallbladder with some sludge or contrast, and some basilar infiltrates. He was admitted on nasal O2 however rapid response team was called due to patient's hypoxemia and hypotension. During the assessment he was found to have a right facial droop and the call was changed to stroke alert. He had a negative CT of the head and is now admitted to ICU with low level of consciousness lethargy and hypoxemia. He apparently was more awake yesterday, and is lethargic today again. His LFTs and ammonia level are markedly elevated. Objective Vital Signs Date Time Temp Pulse Resp B/P Pulse Ox O2 Delivery O2 Flow Rate FiO2 05/06/16 07:45 97 Venturi Mask 50 05/06/16 06:00 88 05/06/16 04:00 100.3 28 99/57 05/06/16 03:53 6.00 Intake and Output 05/05/16 05/05/16 05/06/16 08:00 16:00 00:00 Intake Total 2308 ml 4005 ml Output Total 350 ml 550 ml Balance 1958 ml 3455 ml Result Diagram: 05/06/16 0651 05/06/16 0631 Other Results Microbiology Date/Time Procedure Status Source Growth 05/04/16 15:36 Stool Occult Blood ([facility]) - Final Complete Stool Stool HEMOCCULT POSITIVE Laboratory Tests Test 05/05/16 05/06/16 16:20 04:54 Blood Gas Puncture Site LT RADIAL LT RADIAL Blood Gas Patient Temperature 98.6 98.6 Blood Gas HCO3 21 mmol/L 20 mmol/L (22-26) (22-26) Blood Gas Base Excess -3.0 mmol/L -4.8 mmol/L (-2-2) (-2-2) Blood Gas Oxygen Saturation 85 % (90-100) 91 % (90-100) Arterial Blood pH 7.40 7.36 (7.380-7.420) (7.380-7.420) Arterial Blood Partial 35 mmHg (38-42) 36 mmHg (38-42) Pressure CO2 Arterial Blood Partial 57 mmHG 71 mmHg Pressure O2 (61-120) (61-120) Arterial Blood Oxygen Content 12.1 Vol % 9.4 Vol % (12.0-20.0) (12.0-20.0) Arterial Blood 2.0 % (0-4) 1.5 % (0-4) Carboxyhemoglobin Arterial Blood Methemoglobin 1.7 % (0-2) 1.0 % (0-2) Blood Gas Hemoglobin 10.1 G/DL 7.2 G/DL (12.0-16.0) (12.0-16.0) Oxygen Delivery Device NASAL CANNULA Venti Mask Blood Gas Liter Flow 2 L/M 6 L/M Blood Gas Inspired Oxygen 50 % Imaging Last [address] 05/05/16 0000 Signed Impressions: Service Date/Time: Thursday, May 05, 2016 15:47 - CONCLUSION: Stable noncontrast head CT. No acute intracranial abnormality is identified. Germain Gamez MD Chest X-Ray 05/05/16 0000 Signed Impressions: Service Date/Time: Thursday, May 05, 2016 10:51 - CONCLUSION: Mild streaky bibasilar airspace opacity could represent atelectasis or consolidation. Based on the current appearance and prior chest CT, atelectasis is favored. Germain Gamez MD Objective Remarks GENERAL: Disheveled, old looking male SKIN: Warm and dry. HEAD: Normocephalic. EYES: Positive scleral icterus. No injection or drainage. NECK: Supple, trachea midline. No JVD or lymphadenopathy. CARDIOVASCULAR: Regular rate and rhythm without murmurs, gallops, or rubs. RESPIRATORY: Breath sounds equal bilaterally. No accessory muscle use. GASTROINTESTINAL: Abdomen soft, non-tender, nondistended. MUSCULOSKELETAL: No cyanosis, or edema. BACK: Nontender without obvious deformity. No CVA tenderness. EXTREMITIES: Vital Signs Date Time Temp Pulse Resp B/P Pulse Ox O2 Delivery O2 Flow Rate FiO2 05/05/16 15:40 95 3.50 05/05/16 15:00 97.1 103 28 108/53 05/04/16 17:24 Nasal Cannula Procedures None A/P Assessment and Plan Encephalopathy - multifactorial etiology - hepatic encephalopathy - SIRS/infection. - Head CT is negative, CT pending - Elevated ammonia level - now resolved - Continue Lactulose - Not a candidate for TPA administration due to thrombocytopenia and melanotic stool SIRS: - fever, lactic acidosis. - Unclear source - Influenza negative - Follow cultures. - All negative up-to-date - Zosyn - Empirically - ID consult appreciated Hypertension - Due to above - Aggressive IV fluids resuscitation - IV albumin given the scenario of chronic liver disease - Levophed when necessary to keep map above 65 Transaminitis, jaundice - Possible alcoholic hepatitis. - LFTs are elevated. - CT shows fatty liver. - Appreciate GI recommendations. - Hepatitis panel is negative. Acute kidney injury - Due to dehydration, - Continue aggressive IV fluids and albumin - Monitor labs and strict urine output History of Alcohol abuse - Withdrawal precautions. -[facility] protocol. Tobacco use disorder - Nicotine patch. Coagulopathy - Due to liver disease - INR is improving Melanotic stool - Workup per GI - IV Protonix Thrombocytopenia - Supportive care DVT GI prophylaxis - Teds SCDs IV Protonix Level III Vincent Fiore MD May 06, 2016 08:44
[2016-05-06 08:53] LABS: BANDS 20 % (0-6); BASOPHILS 1 % (0-2); CORRECTED NUCLEATED RBC 51 /100 WBC (0-0); EOSINOPHILS 1 % (0-4); METAMYELOCYTES 4 % (0-1); MYELOCYTES 2 % (0-0); NEUTROPHIL # MANUAL DIFF 14.9 TH/MM3 (1.8-7.7); POLYS (SEG NEUTROPHILS) 64 % (16-70); WBC DIFF SAMPLE 100
[2016-05-06 08:55] LABS: PLATELET ESTIMATE SMEAR LOW (NORMAL); PLATELET MORPHOLOGY ENLARGED (NORMAL)
[2016-05-06 09:00] LABS: ACANTHOCYTES OCC (NORMAL)
[2016-05-06 09:04] LABS: SCAN/DIFF FINAL DIFF MANUAL
--- NOTE | 2016-05-06 09:07 | HHI.IDPN ---
Subjective Subjective Remarks Notes reviewed D/W RN Transferred to ICU for decreased LOC, and possible stroke alert Also with low BP and on levophed Temps low grade On FM, looks less tachypneic today CXR no change in infiltrates WBC is lower Hgb also down CT head negative Just had EEG done UA ok Antibiotics Zosyn Vancomycin Past Medical History Tonsillectomy Heavy ETOH Smoker Allergies: Coded Allergies: No Known Allergies (Unverified , 05/01/16) Objective . Vital Signs Date Time Temp Pulse Resp B/P Pulse Ox O2 Delivery O2 Flow Rate FiO2 05/06/16 07:45 97 Venturi Mask 50 05/06/16 06:00 88 05/06/16 04:00 89 05/06/16 04:00 100.3 89 28 99/57 93 05/06/16 03:53 93 Venturi Mask 6.00 50 05/06/16 02:00 89 05/06/16 00:00 99.8 86 20 83/54 100 05/06/16 00:00 79 05/05/16 22:00 79 05/05/16 20:51 95 Non-Rebreather 15.00 05/05/16 20:00 86 05/05/16 20:00 100.4 86 24 87/52 95 05/05/16 16:30 99 Non-Rebreather 15.00 05/05/16 16:00 99.0 106 25 87/53 92 05/05/16 15:40 95 3.50 05/05/16 15:00 97.1 103 28 108/53 92 05/05/16 15:00 104 05/05/16 14:00 102 05/05/16 13:00 102 05/05/16 12:00 102 05/05/16 11:00 99.0 107 32 91/59 93 05/05/16 11:00 95 05/05/16 10:00 106 05/05/16 05/05/16 05/06/16 15:00 23:00 07:00 Intake Total 4005 ml 2150 ml Output Total 550 ml 325 ml Balance 3455 ml 1825 ml IV Total 3505 ml 1150 ml Albumin 500 ml 1000 ml Output Urine Total 550 ml 325 ml # Bowel Movements 2 1 . Laboratory Tests Test 05/05/16 05/05/16 05/06/16 03:44 16:12 06:51 White Blood Count 20.0 TH/MM3 22.5 TH/MM3 16.6 TH/MM3 Red Blood Count 2.45 MIL/MM3 2.56 MIL/MM3 1.95 MIL/MM3 Hemoglobin 8.8 GM/DL 9.1 GM/DL 7.1 GM/DL Hematocrit 27.9 % 29.4 % 22.8 % Mean Corpuscular Volume 113.8 FL 115.0 FL 116.6 FL Mean Corpuscular Hemoglobin 35.7 PG 35.8 PG 36.2 PG Mean Corpuscular Hemoglobin 31.3 % 31.1 % 31.0 % Concent Red Cell Distribution Width 16.1 % 16.7 % 17.4 % Platelet Count 84 TH/MM3 87 TH/MM3 76 TH/MM3 Mean Platelet Volume 9.2 FL 9.1 FL 9.4 FL Neutrophils (%) (Auto) 82.3 % 81.1 % 84.7 % Lymphocytes (%) (Auto) 11.2 % 12.3 % 9.5 % Monocytes (%) (Auto) 5.4 % 5.3 % 4.0 % Eosinophils (%) (Auto) 0.4 % 0.3 % 0.9 % Basophils (%) (Auto) 0.7 % 1.0 % 0.9 % Neutrophils # (Auto) 16.5 TH/MM3 18.3 TH/MM3 14.1 TH/MM3 Lymphocytes # (Auto) 2.2 TH/MM3 2.8 TH/MM3 1.6 TH/MM3 Monocytes # (Auto) 1.1 TH/MM3 1.2 TH/MM3 0.7 TH/MM3 Eosinophils # (Auto) 0.1 TH/MM3 0.1 TH/MM3 0.1 TH/MM3 Basophils # (Auto) 0.1 TH/MM3 0.2 TH/MM3 0.1 TH/MM3 CBC Comment AUTO DIFF AUTO DIFF AUTO DIFF Differential Total Cells 100 100 Counted Neutrophils % (Manual) 59 % 76 % Band Neutrophils % 21 % 4 % Lymphocytes % 9 % 4 % Monocytes % 6 % 4 % Neutrophils # (Manual) 17.0 TH/MM3 20.5 TH/MM3 Metamyelocytes 5 % 8 % Nucleated Red Blood Cells 66 /100 WBC 37 /100 WBC Differential Comment FINAL DIFF FINAL DIFF MANUAL MANUAL Platelet Estimate LOW LOW Platelet Morphology Comment ENLARGED NORMAL Polychromasia 2.5 % Target Cells 1+ Bedside Hemoglobin 9.9 G/DL Bedside Hematocrit 29.0 % Myelocytes 2 % Promyelocytes 1 % Plasma Cells 1 % Ovalocytes 1+ Fong-Trainer Bodies PRESENT Laboratory Tests Test 05/05/16 05/05/16 05/05/16 05/06/16 03:44 16:12 21:46 06:01 Sodium Level 155 MEQ/L 154 MEQ/L 154 MEQ/L Potassium Level 3.9 MEQ/L 4.0 MEQ/L 4.1 MEQ/L Chloride Level 123 MEQ/L 123 MEQ/L 123 MEQ/L Carbon Dioxide Level 23.3 MEQ/L 23.4 MEQ/L 21.8 MEQ/L Anion Gap 9 MEQ/L 8 MEQ/L 9 MEQ/L Blood Urea Nitrogen 23 MG/DL 25 MG/DL 21 MG/DL Creatinine 0.82 MG/DL 1.05 MG/DL 1.07 MG/DL Estimat Glomerular Filtration 95 ML/MIN 71 ML/MIN 70 ML/MIN Rate Random Glucose 83 MG/DL 102 MG/DL 98 MG/DL Calcium Level 8.6 MG/DL 8.5 MG/DL 7.9 MG/DL Magnesium Level 2.2 MG/DL Total Bilirubin 5.7 MG/DL Aspartate Amino Transf 266 U/L (AST/SGOT) Alanine Aminotransferase 139 U/L (ALT/SGPT) Alkaline Phosphatase 193 U/L Total Protein 4.0 GM/DL Albumin 1.6 GM/DL Bedside Sodium 153 MMOL/L Bedside Potassium 4.0 MMOL/L Bedside Chloride 120 MMOL/L Bedside Blood Urea Nitrogen 23 MG/DL Bedside Creatinine 0.9 MG/DL Bedside Glucose 107 MG/DL Total Creatine Kinase 114 U/L Troponin I 0.03 NG/ML Vitamin B12 Level GREATER THAN 2000 PG/ML Thyroxine (T4) 4.5 MCG/DL Thyroid Stimulating Hormone 1.600 uIU/ML 3rd Gen Tumor Marker Alpha Fetoprotein 2.3 NG/ML Test 05/06/16 05/06/16 06:31 06:51 Sodium Level 154 MEQ/L Potassium Level 3.5 MEQ/L Chloride Level 122 MEQ/L Carbon Dioxide Level 22.3 MEQ/L Anion Gap 10 MEQ/L Blood Urea Nitrogen 16 MG/DL Creatinine 0.88 MG/DL Estimat Glomerular Filtration 87 ML/MIN Rate Random Glucose 114 MG/DL Calcium Level 8.0 MG/DL Phosphorus Level 1.1 MG/DL Magnesium Level 2.1 MG/DL Total Bilirubin 6.0 MG/DL Direct Bilirubin 4.5 MG/DL Indirect Bilirubin 1.5 MG/DL Aspartate Amino Transf 262 U/L (AST/SGOT) Alanine Aminotransferase 114 U/L (ALT/SGPT) Alkaline Phosphatase 126 U/L Total Protein 4.4 GM/DL Albumin 2.5 GM/DL Ammonia 30 MCMOL/L Microbiology Date/Time Procedure Status Source Growth 05/04/16 15:36 Stool Occult Blood ([facility]) - Final Complete Stool Stool HEMOCCULT POSITIVE Imaging Neck CTA 05/05/16 0000 Signed Impressions: Service Date/Time: Thursday, May 05, 2016 17:15 - CONCLUSION: Bilateral carotid bifurcation atherosclerosis, mild on the right and minimal on the left. There is also mild plaque of both vertebral artery origins. No significant narrowing seen. Germain Oglesby MD Lung Scan-V Nuclear Medicine 05/05/16 0000 Signed Impressions: Service Date/Time: Thursday, May 05, 2016 19:51 - CONCLUSION: Heterogeneous perfusion. Study is low probability for pulmonary embolus. Germain Oglesby MD Head CTA 05/05/16 0000 Signed Impressions: Service Date/Time: Thursday, May 05, 2016 17:15 - CONCLUSION: Intracranial arteries are within normal limits. Germain Oglesby MD Head CT 05/05/16 0000 Signed Impressions: Service Date/Time: Thursday, May 05, 2016 15:47 - CONCLUSION: Stable noncontrast head CT. No acute intracranial abnormality is identified. Germain Gamez MD Chest X-Ray 05/05/16 0000 Signed Impressions: Service Date/Time: Thursday, May 05, 2016 10:51 - CONCLUSION: Mild streaky bibasilar airspace opacity could represent atelectasis or consolidation. Based on the current appearance and prior chest CT, atelectasis is favored. Germain Gamez MD Brain MRI 05/05/16 0000 Signed Impressions: Service Date/Time: Thursday, May 05, 2016 17:48 - CONCLUSION: No acute infarct or other acute intracranial abnormality. Motion degraded study. Germain Oglesby MD Gall Bladder Ultrasound 05/02/16 0000 Signed Impressions: Service Date/Time: Monday, May 02, 2016 16:32 - CONCLUSION: Minimal debris in the gallbladder with normal common duct. I do not see ancillary signs of acute cholecystitis. Mild fatty replacement to the liver. Jarad Alejandra MD FACR Head CT 05/01/16 1358 Signed Impressions: Service Date/Time: April 15:14 - CONCLUSION: Normal examination. Doe Foote MD Chest X-Ray 05/01/16 1355 Signed Impressions: Service Date/Time: April 14:28 - CONCLUSION: Normal examination. Numerous healed left-sided rib fractures. Doe Foote MD Chest CT 05/01/16 0000 Signed Impressions: Service Date/Time: , May 01, 2016 15:18 - CONCLUSION: Some atelectasis both lung bases. Markedly fatty liver. Doe Foote MD Abdomen/Pelvis CT 05/01/16 0000 Signed Impressions: Service Date/Time: , May 01, 2016 15:18 - CONCLUSION: The gallbladder hss markedly dense contents may be related to iodinated contrast. The liver is markedly fatty. No evidence of free fluid or solid organ mass. Bladder wall is mildly thickened without focal mass. Doe Foote MD Physical Exam GENERAL: Awake, following all commands, has a moist and weak cough, on FM, mild RD SKIN: Cool and moist. Has jaundice. No generalized rash or ecchymosis. HEAD: Atraumatic. Normocephalic. No temporal or scalp tenderness. EYES: Godfrey conjunctivae. Has scleral icterus. No injection or drainage. ENT: Nose without bleeding, or purulent drainage. Dry oral mucosa, poor dentition. NECK: Trachea midline. No JVD or lymphadenopathy. Supple, nontender, no meningeal signs. CARDIOVASCULAR: Regular rate and rhythm without murmurs, gallops, or rubs. RESPIRATORY: Decreased BS whole lung castro, bilaterally GASTROINTESTINAL: Abdomen soft, nondistended, bowel sounds are present and hypoactive. Large liver. Not tender MUSCULOSKELETAL: Extremities without clubbing, cyanosis. Has mild pedal edema. No calf tenderness. NEUROLOGICAL: Awake, following. No focal deficits LINE: PIV with no evidence of infection PSYCH: cooperative : tinsley in place Assessment & Plan Remarks IMPRESSION Sepsis, has lethargy, fever, acidosis, tachycardia, concern with aspiration PNA - has weak moist cough - no evidence of cholecystitis on US - has most likely ETOH hepatitis Known ETOH abuse Encephalopathy due to sepsis, liver disease ETOH hepatitis Leukocytosis, better One (+) BC with Staph auricularis, likely contaminant RECOMMENDATION Continue Zosyn Continue Vancomycin Get sputum C/S 2 BC today Follow C/S Monitor temps Follow CBC Monitor progress D/W Mireya Link MD May 06, 2016 09:07
[2016-05-06] MEDS: ASPIRIN 81 MG CHEW TAB CHEW SCH (09:24)
[2016-05-06] MEDS: THIAMINE HCL 100 MG TAB PO SCH (09:24)
[2016-05-06] MEDS: LACTULOSE SYRUP 20 GM/30 ML CUP PO SCH ×3 (09:24→18:33)
[2016-05-06] MEDS: SODIUM CHLORIDE 0.9% FLUSH 5 ML FLUSH FLUSH SCH ×2 (09:25→20:09)
--- NOTE | 2016-05-06 10:20 | HHI.GIFU ---
Subjective Remarks Resting in bed. Lethargic, does respond and follows commands- oriented to self and place. EEG was in. Objective Vitals I&O Vital Signs Date Time Temp Pulse Resp B/P Pulse Ox O2 Delivery O2 Flow Rate FiO2 05/06/16 07:45 97 Venturi Mask 50 05/06/16 06:00 88 05/06/16 04:00 89 05/06/16 04:00 100.3 89 28 99/57 93 05/06/16 03:53 93 Venturi Mask 6.00 50 05/06/16 02:00 89 05/06/16 00:00 99.8 86 20 83/54 100 05/06/16 00:00 79 05/05/16 22:00 79 05/05/16 20:51 95 Non-Rebreather 15.00 05/05/16 20:00 86 05/05/16 20:00 100.4 86 24 87/52 95 05/05/16 16:30 99 Non-Rebreather 15.00 05/05/16 16:00 99.0 106 25 87/53 92 05/05/16 15:40 95 3.50 05/05/16 15:00 97.1 103 28 108/53 92 05/05/16 15:00 104 05/05/16 14:00 102 05/05/16 13:00 102 05/05/16 12:00 102 05/05/16 11:00 99.0 107 32 91/59 93 05/05/16 11:00 95 I/O 05/05/16 05/05/16 05/05/16 05/06/16 05/06/16 05/06/16 07:00 15:00 23:00 07:00 15:00 23:00 Intake Total 2308 ml 4005 ml 2150 ml Output Total 350 ml 550 ml 325 ml Balance 1958 ml 3455 ml 1825 ml Intake Oral 15 ml IV Total 2293 ml 3505 ml 1150 ml Albumin 500 ml 1000 ml Output Urine Total 350 ml 550 ml 325 ml # Bowel Movements 1 2 1 Laboratory Laboratory Tests Test 05/05/16 05/05/16 05/05/16 05/05/16 12:53 16:10 16:12 16:20 Urine Color DARK-BROWN Urine Turbidity CLEAR Urine pH 6.0 Urine Specific [place] 1.040 Urine Protein 30 Urine Glucose (UA) NEG Urine Ketones 10 Urine Occult Blood NEG Urine Nitrite NEG Urine Bilirubin LARGE Urine Urobilinogen LESS THAN 2.0 Urine Leukocyte Esterase TRACE Urine RBC 4 Urine WBC 4 Urine Squamous Epithelial 1 Cells Microscopic Urinalysis Comment CULT NOT INDICATED Nasal Screen MRSA (PCR) NEGATIVE White Blood Count 22.5 Red Blood Count 2.56 Hemoglobin 9.1 Bedside Hemoglobin 9.9 Hematocrit 29.4 Bedside Hematocrit 29.0 Mean Corpuscular Volume 115.0 Mean Corpuscular Hemoglobin 35.8 Mean Corpuscular Hemoglobin 31.1 Concent Red Cell Distribution Width 16.7 Platelet Count 87 Mean Platelet Volume 9.1 Neutrophils (%) (Auto) 81.1 Lymphocytes (%) (Auto) 12.3 Monocytes (%) (Auto) 5.3 Eosinophils (%) (Auto) 0.3 Basophils (%) (Auto) 1.0 Neutrophils # (Auto) 18.3 Lymphocytes # (Auto) 2.8 Monocytes # (Auto) 1.2 Eosinophils # (Auto) 0.1 Basophils # (Auto) 0.2 CBC Comment AUTO DIFF Differential Total Cells 100 Counted Neutrophils % (Manual) 76 Band Neutrophils % 4 Lymphocytes % 4 Monocytes % 4 Neutrophils # (Manual) 20.5 Metamyelocytes 8 Myelocytes 2 Promyelocytes 1 Nucleated Red Blood Cells 37 Differential Comment FINAL DIFF MANUAL Plasma Cells 1 Platelet Estimate LOW Platelet Morphology Comment NORMAL Ovalocytes 1+ [place] Bodies PRESENT Prothrombin Time 13.9 Prothromb Time International 1.2 Ratio Activated Partial 30.2 Thromboplast Time Fibrinogen 220 Bedside Sodium 153 Sodium Level 154 Bedside Potassium 4.0 Potassium Level 4.0 Bedside Chloride 120 Chloride Level 123 Carbon Dioxide Level 23.4 Anion Gap 8 Bedside Blood Urea Nitrogen 23 Blood Urea Nitrogen 25 Creatinine 1.05 Bedside Creatinine 0.9 Estimat Glomerular Filtration 71 Rate Bedside Glucose 107 Random Glucose 102 Calcium Level 8.5 Total Creatine Kinase 114 Troponin I 0.03 Vitamin B12 Level GREATER THAN 2000 Thyroxine (T4) 4.5 Thyroid Stimulating Hormone 1.600 3rd Gen Blood Type O POSITIVE Antibody Screen NEGATIVE Blood Bank Comment Blood Gas Puncture Site LT RADIAL Blood Gas Patient Temperature 98.6 Blood Gas HCO3 21 Blood Gas Base Excess -3.0 Blood Gas Oxygen Saturation 85 Arterial Blood pH 7.40 Arterial Blood Partial 35 Pressure CO2 Arterial Blood Partial 57 Pressure O2 Arterial Blood Oxygen Content 12.1 Arterial Blood 2.0 Carboxyhemoglobin Arterial Blood Methemoglobin 1.7 Blood Gas Hemoglobin 10.1 Oxygen Delivery Device NASAL CANNULA Blood Gas Liter Flow 2 Test 05/05/16 05/06/16 05/06/16 05/06/16 21:46 04:54 06:01 06:31 Sodium Level 154 154 Potassium Level 4.1 3.5 Chloride Level 123 122 Carbon Dioxide Level 21.8 22.3 Anion Gap 9 10 Blood Urea Nitrogen 21 16 Creatinine 1.07 0.88 Estimat Glomerular Filtration 70 87 Rate Random Glucose 98 114 Calcium Level 7.9 8.0 Blood Gas Puncture Site LT RADIAL Blood Gas Patient Temperature 98.6 Blood Gas HCO3 20 Blood Gas Base Excess -4.8 Blood Gas Oxygen Saturation 91 Arterial Blood pH 7.36 Arterial Blood Partial 36 Pressure CO2 Arterial Blood Partial 71 Pressure O2 Arterial Blood Oxygen Content 9.4 Arterial Blood 1.5 Carboxyhemoglobin Arterial Blood Methemoglobin 1.0 Blood Gas Hemoglobin 7.2 Oxygen Delivery Device Venti Mask Blood Gas Liter Flow 6 Blood Gas Inspired Oxygen 50 Tumor Marker Alpha Fetoprotein 2.3 Phosphorus Level 1.1 Magnesium Level 2.1 Total Bilirubin 6.0 Direct Bilirubin 4.5 Indirect Bilirubin 1.5 Aspartate Amino Transf 262 (AST/SGOT) Alanine Aminotransferase 114 (ALT/SGPT) Alkaline Phosphatase 126 Total Protein 4.4 Albumin 2.5 Test 05/06/16 05/06/16 06:51 08:51 White Blood Count 16.6 Red Blood Count 1.95 Hemoglobin 7.1 Hematocrit 22.8 Mean Corpuscular Volume 116.6 Mean Corpuscular Hemoglobin 36.2 Mean Corpuscular Hemoglobin 31.0 Concent Red Cell Distribution Width 17.4 Platelet Count 76 Mean Platelet Volume 9.4 Neutrophils (%) (Auto) 84.7 Lymphocytes (%) (Auto) 9.5 Monocytes (%) (Auto) 4.0 Eosinophils (%) (Auto) 0.9 Basophils (%) (Auto) 0.9 Neutrophils # (Auto) 14.1 Lymphocytes # (Auto) 1.6 Monocytes # (Auto) 0.7 Eosinophils # (Auto) 0.1 Basophils # (Auto) 0.1 CBC Comment AUTO DIFF Differential Total Cells 100 Counted Neutrophils % (Manual) 64 Band Neutrophils % 20 Lymphocytes % 4 Monocytes % 4 Eosinophils % 1 Basophils % 1 Neutrophils # (Manual) 14.9 Metamyelocytes 4 Myelocytes 2 Nucleated Red Blood Cells 51 Differential Comment FINAL DIFF MANUAL Platelet Estimate LOW Platelet Morphology Comment ENLARGED Polychromasia 2.0 Basophilic Stippling FAINT Acanthocytes OCC Red Cell Morphology Comment Prothrombin Time 14.1 Prothromb Time International 1.3 Ratio Ammonia 30 Blood Type O POSITIVE Crossmatch Leukocyte-Reduced Red Blood Cells Blood Bank Comment Date/Time Procedure Status Source Growth 05/04/16 15:36 Stool Occult Blood ([facility]) - Final Complete Stool Stool HEMOCCULT POSITIVE 05/02/16 18:10 Aerobic Blood Culture - Preliminary Resulted Blood Arterial Line NO GROWTH IN 3 DAYS 05/02/16 18:10 Anaerobic Blood Culture - Preliminary Resulted Blood Arterial Line NO GROWTH IN 3 DAYS 05/01/16 17:50 Influenza Types A,B Antigen ([facility]) - Final Complete Nasal Aspirate NEGATIVE FOR FLU A AND B ANTIGEN.... 05/01/16 14:20 Aerobic Blood Culture - Final Resulted Blood Peripheral Staphylococcus Auricularis 05/01/16 14:20 Anaerobic Blood Culture - Preliminary Resulted Blood Peripheral NO GROWTH IN 4 DAYS Imaging Last Impressions Neck CTA 05/05/16 0000 Signed Impressions: Service Date/Time: Thursday, May 05, 2016 17:15 - CONCLUSION: Bilateral carotid bifurcation atherosclerosis, mild on the right and minimal on the left. There is also mild plaque of both vertebral artery origins. No significant narrowing seen. Germain Oglesby MD Lung Scan- Nuclear Medicine 05/05/16 0000 Signed Impressions: Service Date/Time: Thursday, May 05, 2016 19:51 - CONCLUSION: Heterogeneous perfusion. Study is low probability for pulmonary embolus. Germain Oglesby MD Head CTA 05/05/16 0000 Signed Impressions: Service Date/Time: Thursday, May 05, 2016 17:15 - CONCLUSION: Intracranial arteries are within normal limits. Germain Oglesby MD Head CT 05/05/16 0000 Signed Impressions: Service Date/Time: Thursday, May 05, 2016 15:47 - CONCLUSION: Stable noncontrast head CT. No acute intracranial abnormality is identified. Germain Gamez MD Chest X-Ray 05/05/16 0000 Signed Impressions: Service Date/Time: Thursday, May 05, 2016 10:51 - CONCLUSION: Mild streaky bibasilar airspace opacity could represent atelectasis or consolidation. Based on the current appearance and prior chest CT, atelectasis is favored. Germain Gamez MD Brain MRI 05/05/16 0000 Signed Impressions: Service Date/Time: Thursday, May 05, 2016 17:48 - CONCLUSION: No acute infarct or other acute intracranial abnormality. Motion degraded study. Germain Oglesby MD Gall Bladder Ultrasound 05/02/16 0000 Signed Impressions: Service Date/Time: Monday, May 02, 2016 16:32 - CONCLUSION: Minimal debris in the gallbladder with normal common duct. I do not see ancillary signs of acute cholecystitis. Mild fatty replacement to the liver. Jarad Alejandra MD FACR Chest CT 05/01/16 0000 Signed Impressions: Service Date/Time: April 15:18 - CONCLUSION: Some atelectasis both lung bases. Markedly fatty liver. Doe Foote MD Abdomen/Pelvis CT 05/01/16 0000 Signed Impressions: Service Date/Time: April 15:18 - CONCLUSION: The gallbladder hss markedly dense contents may be related to iodinated contrast. The liver is markedly fatty. No evidence of free fluid or solid organ mass. Bladder wall is mildly thickened without focal mass. Doe Foote MD Physical Exam HEENT: Normocephalic; atraumatic; + jaundice. CHEST: Scattered rhonchi CARDIAC: Tachycardiac ABDOMEN: Soft, nondistended, nontender; hepatosplenomegaly; bowel sounds are present in all four quadrants. EXTREMITIES: No clubbing, cyanosis, or edema. SKIN: Normal; no rash; + jaundice. P D DRIVER: Lethargic, follows commands. Oriented to self and place. Assessment and Plan Plan ASSESSMENT: - Elevated LFTs. Abdomen/Pelvis CT (05/01/16)-------> The gallbladder has markedly dense contents may be related to iodinated contrast. The liver is markedly fatty. No evidence of free fluid or solid organ mass. Bladder wall is mildly thickened without focal mass. Gall Bladder Ultrasound (05/02/16)---> Minimal debris in the gallbladder with normal common duct. I do not see ancillary signs of acute cholecystitis. Mild fatty replacement to the liver. Hepatitis profile pending. DAFNE negative. AMA 29.4. ASMA pending. Celiac workup pending. Alpha 1 Antitrypsin 175, Ceruloplasmin pending. Ferritin 967, Iron Saturation 90.5%. Hfe pending. Pt with persistent elevation of LFTs. T. Bili 6.0, Direct 4.5, Indirect 1.5, AST 262, ALT 114, Alk phosph 126. - Elevated Ammonia. Lactulose. Lethargic, but oriented to self and place. Ammonia 30. - Anemia. 9.2/29.0. - Coagulopathy, Thrombocytopenia. Stable. PT 14.1INR 1.3. Plt 76 - SIRS- elevated lactic acid, hypoxemia, tachycardiac T max 100.2. BCx with one bottle with Staphylococcus Auricularis. BCx no growth 3 day. - Acute renal failure. Improved. - Dysphagia. ST following, recommended NPO. 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 Espinal and myself and this note is written on his behalf. Georgia Oconnell May 06, 2016 10:20
--- NOTE | 2016-05-06 13:10 | EKG ---
Date Performed: 05/05/2016 Time Performed: 16:38:22 PTAGE: 65 years EKG: SINUS TACHYCARDIA LOW QRS VOLTAGE IN PRECORDIAL LEADS NONSPECIFIC T WAVE ABNORMALITY ABNORM AL RHYTHM ECG PREVIOUS TRACING : 05/02/2016 02.23 Compared to previous tracing, PACs are no longer present. DOCTOR: Santi Corona Interpretating Date/Time 05/06/2016 13:09:48
--- NOTE | 2016-05-06 17:24 | EC ---
Study Study Date:05/06/2016 STUDY CONCLUSIONS SUMMARY LEFT VENTRICLE: The cavity size was normal. Wall thickness was normal. Systolic function was normal. The estimated ejection fraction was in the range of 55% to 60%. Wall motion was normal; there were no regional wall motion abnormalities. If LV function is below 40, please consider prescribing an ACEI or ARB or document rationale for non-use. PROCEDURE DATA STUDY STATUS: Elective. Procedure: Transthoracic echocardiography. Image quality was poor. Scanning was performed from the parasternal, apical, and subcostal acoustic windows. Study completion: The patient tolerated the procedure well. Transthoracic echocardiography. M-mode, complete 2D, complete spectral Doppler, and color Doppler. Patient status: Inpatient. CARDIAC ANATOMY LEFT VENTRICLE: The cavity size was normal. Wall thickness was normal. Systolic function was normal. The estimated ejection fraction was in the range of 55% to 60%. Wall motion was normal; there were no regional wall motion abnormalities. AORTIC VALVE: Trileaflet; normal thickness leaflets. Doppler: Transvalvular velocity was within the normal range. There was no stenosis. No regurgitation. AORTA: Aortic root: The aortic root was normal in size. MITRAL VALVE: Structurally normal valve. Doppler: Transvalvular velocity was within the normal range. There was no evidence for stenosis. No regurgitation. LEFT ATRIUM: The atrium was normal in size. RIGHT VENTRICLE: The cavity size was normal. Wall thickness was normal. PULMONIC VALVE: Doppler: Transvalvular velocity was within the normal range. There was no evidence for stenosis. No regurgitation. TRICUSPID VALVE: Structurally normal valve. Doppler: Transvalvular velocity was within the normal range. No regurgitation. PULMONARY ARTERY: The main pulmonary artery was normal-sized. Systolic pressure was within the normal range. RIGHT ATRIUM: The atrium was normal in size. PERICARDIUM: There was no pericardial effusion. SYSTEMIC VEINS: Inferior vena cava: The vessel was normal in size. Prepared and signed by Jayme Viramontes [id number]
[2016-05-06] MEDS: NUTRISOURCE FIBER POWDER 1 PACK G-TUBE SCH (18:00)
--- NOTE | 2016-05-06 18:33 | MG ---
cc: JASON BAEZ M.D. Lab No: Date: 05/06/2016 Age: Sex: M Race: REQUESTING PHYSICIAN Dr. Gupta. INTRODUCTION An EEG was obtained on this 65-year-old patient with a history of unresponsiveness and being evaluated for possible seizures. DESCRIPTION The patient is described as awake and asleep during the study. This EEG shows a lot of muscle artifact. The study is limited and at times there is some underlying beta activity and probable theta and delta rhythms along with limited amount of alpha activity. Hyperventilation was not performed. Later on there is drowsiness and a lot of theta and beta rhythms. Photic stimulation shows no change. INTERPRETATION Probably mild to moderately abnormal EEG because of generalized slowing suggestive of a diffuse disturbance of cerebral function but no epileptiform features are present. MD JOAN Ray/KK /6:16 PM /6:28 PM
[2016-05-07] VITALS (12 sets, daily range): BP systolic 78–105; BP diastolic 51–63; PULSE 89–106; RESP 23–31; TEMP 98.7–101.5; O2SAT 90–97
[2016-05-07] MEDS: PIPERACIL-TAZO 3.375 GM PREMIX 50 ML IV SCH ×2 (03:47→09:44)
[2016-05-07] MEDS: CHLORHEXIDINE GLUCONATE 2 % 1 PACK (2 CLOTHS)(taper/protocol) TOP SCH (03:47)
[2016-05-07 04:07] LABS: BLOOD GAS BASE EXCESS -5.5 mmol/L (-2-2); BLOOD GAS CARBOXYHEMOGLOBIN 1.7 % (0-4); BLOOD GAS HCO3 20 mmol/L (22-26); BLOOD GAS METHEMOGLOBIN 0.9 % (0-2); BLOOD GAS O2 HGB SATURATION 89 % (90-100); BLOOD GAS OXYGEN CONTENT 12.9 Vol % (12.0-20.0); BLOOD GAS PCO2 41 mmHg (38-42); BLOOD GAS PO2 66 mmHg (61-120); BLOOD GAS TOTAL HGB 10.2 G/DL (12.0-16.0); CRITICAL VALUE YES; TEMP CORR TO 98.6
[2016-05-07 04:08] LABS: DRAW SITE RT RADIAL; FIO2 50 %; LITER FLOW 6 L/M; NUMBER OF ARTERIAL PUNCTURES 2; OXYGEN DEVICE VENTI MASK; STAT YES; ULNAR PULSE PRESENT
[2016-05-07 04:38] LABS: BASOPHIL # 0.2 TH/MM3 (0-0.2); EOSINOPHIL # 0.1 TH/MM3 (0-0.4); EOSINOPHIL % 0.6 % (0.0-4.0); HEMATOCRIT 32.5 % (39.0-51.0); LYMPHOCYTE # 1.7 TH/MM3 (1.0-4.8); MEAN CELL VOLUME 106.5 FL (80.0-100.0); MEAN CORPUSCULAR HEMOGLOBIN 34.6 PG (27.0-34.0); MEAN CORPUSCULAR HGB CONC 32.5 % (32.0-36.0); MONO % 3.7 % (0.0-8.0); NEUT % 84.7 % (16.0-70.0); PLATELET COUNT 61 TH/MM3 (150-450); RED BLOOD COUNT 3.05 MIL/MM3 (4.50-5.90); RED CELL DISTRIBUTION WIDTH 20.6 % (11.6-17.2); WHITE BLOOD COUNT 16.5 TH/MM3 (4.0-11.0)
[2016-05-07 05:01] LABS: HEMO FLAGS AUTO DIFF
[2016-05-07 05:11] LABS: ALKALINE PHOSPHATASE 136 U/L (45-117); ALT (GPT) 125 U/L (12-78); ANION GAP 11 MEQ/L (5-15); AST (GOT) 291 U/L (15-37); BICARBONATE 21.7 MEQ/L (21.0-32.0); BLOOD UREA NITROGEN 12 MG/DL (7-18); CHLORIDE 119 MEQ/L (98-107); GLOMERULAR FILTRATION RATE 80 ML/MIN (>89); MAGNESIUM 2.1 MG/DL (1.5-2.5); POTASSIUM 3.4 MEQ/L (3.5-5.1); SODIUM (NA) 152 MEQ/L (136-145); TOTAL BILIRUBIN ADULT 8.3 MG/DL (0.2-1.0)
[2016-05-07] MEDS ORDERED: PHARMACY ORDERED LAB XX ONE (05:45)
[2016-05-07] MEDS: DEXTROSE 5% IN WATE 1000ML INJ 1,000 ML IV SCH (05:57)
[2016-05-07] MEDS: INSULIN NovoLIN REGULAR SUPPLEMENTAL SCALE SQ SCH ×3 (06:00→18:00)
[2016-05-07] MEDS: VANCOMYCIN 1,500 MG/NS 500 ML IV SCH ×4 (06:30→18:20)
[2016-05-07 08:00] LABS: BANDS 20 % (0-6); BASOPHILS 1 % (0-2); CORRECTED NUCLEATED RBC 17 /100 WBC (0-0); METAMYELOCYTES 2 % (0-1); NEUTROPHIL # MANUAL DIFF 15.2 TH/MM3 (1.8-7.7); PLATELET ESTIMATE SMEAR LOW (NORMAL); PLATELET MORPHOLOGY NORMAL (NORMAL); POLYS (SEG NEUTROPHILS) 70 % (16-70); SCAN/DIFF FINAL DIFF MANUAL; WBC DIFF SAMPLE 100
--- NOTE | 2016-05-07 08:30 | HHI.PR ---
Subjective Remarks sr Objective Vital Signs Date Time Temp Pulse Resp B/P Pulse Ox O2 Delivery O2 Flow Rate FiO2 05/07/16 06:00 91 05/07/16 04:00 93 05/07/16 04:00 101.4 93 30 99/61 92 05/07/16 02:00 92 05/07/16 00:00 99.3 89 26 101/56 90 05/07/16 00:00 89 05/06/16 22:00 95 05/06/16 20:00 98.4 87 28 99/59 97 05/06/16 20:00 87 05/06/16 19:31 96 Venturi Mask 6.00 50 05/06/16 16:00 98.9 84 24 99/59 96 05/06/16 12:00 99.2 89 24 99/58 95 I/O 05/06/16 05/06/16 05/06/16 05/07/16 05/07/16 05/07/16 07:00 15:00 23:00 07:00 15:00 23:00 Intake Total 2150 ml 2050 ml 1518 ml 1691 ml Output Total 325 ml 250 ml 225 ml 200 ml Balance 1825 ml 1800 ml 1293 ml 1491 ml IV Total 1150 ml 1550 ml 750 ml 1191 ml Tube Feeding 300 ml Albumin 1000 ml 500 ml Packed Cells 768 ml Tube Irrigant 200 ml Output Urine Total 325 ml 250 ml 225 ml 200 ml # Bowel Movements 1 0 2 0 Result Diagram: 05/07/16 0321 05/07/16 0321 Objective Remarks more alert this am awake and sticks out tongue and moves all 4 ext for me has cough Assessment and Plan Assessment and Plan imp consider mazicon if gets too lethargic eeg slow only hepatic encephalopathy doubt tia no cva fu echo nl i dont think he ever had tia just met encep will sign off Sin Gupta MD May 07, 2016 08:30
[2016-05-07] MEDS: NUTRISOURCE FIBER POWDER 1 PACK G-TUBE SCH ×3 (09:00→18:00)
[2016-05-07] MEDS: THIAMINE HCL 100 MG TAB PO SCH (09:00)
[2016-05-07] MEDS: ASPIRIN 81 MG CHEW TAB CHEW SCH (09:00)
[2016-05-07] MEDS ORDERED: POTASSIUM CHLOR 40 MEQ PREMIX 100 ML IV PRN ×2 (09:15)
[2016-05-07] MEDS ORDERED: MAGNESIUM SULFATE INJ 2 GM in SODIUM CHLORIDE 0.9% INJ 96 ML IV PRN (09:15)
[2016-05-07] MEDS ORDERED: MAGNESIUM OXIDE 400 MG TAB PO PRN (09:15)
[2016-05-07] MEDS ORDERED: POTASSIUM CHLOR 20 MEQ PREMIX 100 ML IV PRN ×2 (09:15)
[2016-05-07] MEDS ORDERED: POTASSIUM PHOSPHATE MONOBASIC 500 MG TAB PO/TUBE PRN (09:15)
[2016-05-07] MEDS ORDERED: POTASSIUM PHOSPHATE INJ 30 MMOL in SODIUM CHLOR 0.9% 250 ML INJ 250 ML IV PRN (09:15)
[2016-05-07] MEDS ORDERED: POTASSIUM PHOSPHATE MONOBASIC 500 MG TAB PO PRN (09:15)
[2016-05-07] MEDS ORDERED: SODIUM PHOSPHATE INJ 30 MMOL in SODIUM CHLOR 0.9% 250 ML INJ 240 ML IV PRN (09:15)
[2016-05-07] MEDS ORDERED: MAGNESIUM SULFATE INJ 4 GM in SODIUM CHLORIDE 0.9% INJ 92 ML IV PRN (09:15)
[2016-05-07] MEDS: LACTULOSE SYRUP 20 GM/30 ML CUP PO SCH ×3 (09:45→18:20)
[2016-05-07] MEDS: ALBUMIN HUMAN 5% 25 GM/500 ML BOTTLE IV SCH ×2 (09:56→20:38)
[2016-05-07] MEDS: SODIUM CHLORIDE 0.9% FLUSH 5 ML FLUSH FLUSH SCH ×2 (09:57→20:42)
--- NOTE | 2016-05-07 10:28 | HHI.CCPN ---
Subjective Remarks/Hospital Course 65-year-old male, brought to the hospital after he was found unresponsive in his mobile home. He was hypotensive, with low oxygen saturation, and was unresponsive. In the ED he had a normal white count, and was afebrile. Chest x -ray showed some atelectasis. CT of the chest did not show any significant abnormality. CT of the abdomen and pelvis showed a large liver, gallbladder with some sludge or contrast, and some basilar infiltrates. He was admitted on nasal O2 however rapid response team was called due to patient's hypoxemia and hypotension. During the assessment he was found to have a right facial droop and the call was changed to stroke alert. He had a negative CT of the head and is now admitted to ICU with low level of consciousness lethargy and hypoxemia. He apparently was more awake yesterday, and is lethargic today again. His LFTs and ammonia level were markedly elevated. Objective Vital Signs Date Time Temp Pulse Resp B/P Pulse Ox O2 Delivery O2 Flow Rate FiO2 05/07/16 09:58 94 Venturi Mask 50 05/07/16 06:00 91 05/07/16 04:00 101.4 30 99/61 05/06/16 19:31 6.00 Intake and Output 05/06/16 05/06/16 05/07/16 08:00 16:00 00:00 Intake Total 2150 ml 2050 ml 1518 ml Output Total 325 ml 250 ml 225 ml Balance 1825 ml 1800 ml 1293 ml Result Diagram: 05/07/16 0321 05/07/16 0321 Other Results Microbiology Date/Time Procedure Status Source Growth 05/04/16 15:36 Stool Occult Blood ([facility]) - Final Complete Stool Stool HEMOCCULT POSITIVE Laboratory Tests Test 05/07/16 03:50 Blood Gas Puncture Site RT RADIAL Blood Gas Patient Temperature 98.6 Blood Gas HCO3 20 mmol/L (22-26) Blood Gas Base Excess -5.5 mmol/L (-2-2) Blood Gas Oxygen Saturation 89 % (90-100) Arterial Blood pH 7.30 (7.380-7.420) Arterial Blood Partial 41 mmHg (38-42) Pressure CO2 Arterial Blood Partial 66 mmHg Pressure O2 (61-120) Arterial Blood Oxygen Content 12.9 Vol % (12.0-20.0) Arterial Blood 1.7 % (0-4) Carboxyhemoglobin Arterial Blood Methemoglobin 0.9 % (0-2) Blood Gas Hemoglobin 10.2 G/DL (12.0-16.0) Oxygen Delivery Device VENTI MASK Blood Gas Liter Flow 6 L/M Blood Gas Inspired Oxygen 50 % Imaging Last [address] 05/05/16 0000 Signed Impressions: Service Date/Time: Thursday, May 05, 2016 15:47 - CONCLUSION: Stable noncontrast head CT. No acute intracranial abnormality is identified. Germain Gamez MD Chest X-Ray 05/05/16 0000 Signed Impressions: Service Date/Time: Thursday, May 05, 2016 10:51 - CONCLUSION: Mild streaky bibasilar airspace opacity could represent atelectasis or consolidation. Based on the current appearance and prior chest CT, atelectasis is favored. Germain Gamez MD Objective Remarks GENERAL: Disheveled, old looking male SKIN: Warm and dry. HEAD: Normocephalic. EYES: Positive scleral icterus. No injection or drainage. NECK: Supple, trachea midline. No JVD or lymphadenopathy. CARDIOVASCULAR: Regular rate and rhythm without murmurs, gallops, or rubs. RESPIRATORY: Breath sounds equal bilaterally. No accessory muscle use. GASTROINTESTINAL: Abdomen soft, non-tender, nondistended. MUSCULOSKELETAL: No cyanosis, or edema. BACK: Nontender without obvious deformity. No CVA tenderness. EXTREMITIES: Vital Signs Date Time Temp Pulse Resp B/P Pulse Ox O2 Delivery O2 Flow Rate FiO2 05/05/16 15:40 95 3.50 05/05/16 15:00 97.1 103 28 108/53 05/04/16 17:24 Nasal Cannula Procedures None A/P Assessment and Plan Encephalopathy - multifactorial etiology - hepatic encephalopathy - SIRS/infection. - Head CT is negative - Elevated ammonia level - now resolved - Continue Lactulose - Not a candidate for TPA administration due to thrombocytopenia and melanotic stool - Neurology input appreciated SIRS: - fever, lactic acidosis. - Unclear source - Influenza negative - Follow cultures. - All negative up-to-date - Zosyn - Empirically - ID consult appreciated Hypertension - Due to above - Aggressive IV fluids resuscitation - IV albumin given the scenario of chronic liver disease - Levophed when necessary to keep map above 65 Transaminitis, jaundice - Due to chronic alcohol abuse - CT shows fatty liver. - Appreciate GI recommendations. - Hepatitis panel is negative. Acute kidney injury - Due to dehydration, - Continue aggressive IV fluids and albumin - Monitor labs and strict urine output History of Alcohol abuse - Withdrawal precautions. - [facility] protocol. Tobacco use disorder - Nicotine patch. Coagulopathy - Due to liver disease - INR is improving Melanotic stool - Workup per GI - IV Protonix Thrombocytopenia - Supportive care DVT GI prophylaxis - Teds SCDs IV Protonix Level III Vincent Fiore MD May 07, 2016 10:28
[2016-05-07] MEDS: PANTOPRAZOLE SODIUM 40 MG VIAL IV PUSH SCH ×2 (12:30→20:38)
[2016-05-07] MEDS: SODIUM BICARBONATE 8.4% INJ 100 MEQ in DEXTROSE 5% IN WATE 1000ML INJ 1,000 ML IV SCH ×4 (12:30→20:42)
--- NOTE | 2016-05-07 15:04 | HHI.IDPN ---
Subjective Subjective Remarks Notes reviewed D/W RN Temps up 10 101+ this morning Family discussing further care On FM, looks comfortable today CXR no change in infiltrates Antibiotics Zosyn Vancomycin Past Medical History Tonsillectomy Heavy ETOH Smoker Allergies: Coded Allergies: No Known Allergies (Unverified , 05/01/16) Objective . Vital Signs Date Time Temp Pulse Resp B/P Pulse Ox O2 Delivery O2 Flow Rate FiO2 05/07/16 09:58 94 Venturi Mask 50 05/07/16 06:00 91 05/07/16 04:00 93 05/07/16 04:00 101.4 93 30 99/61 92 05/07/16 02:00 92 05/07/16 00:00 99.3 89 26 101/56 90 05/07/16 00:00 89 05/06/16 22:00 95 05/06/16 20:00 98.4 87 28 99/59 97 05/06/16 20:00 87 05/06/16 19:31 96 Venturi Mask 6.00 50 05/06/16 16:00 98.9 84 24 99/59 96 05/06/16 05/06/16 05/07/16 15:00 23:00 07:00 Intake Total 2050 ml 1518 ml 1691 ml Output Total 250 ml 225 ml 200 ml Balance 1800 ml 1293 ml 1491 ml IV Total 1550 ml 750 ml 1191 ml Tube Feeding 300 ml Albumin 500 ml Packed Cells 768 ml Tube Irrigant 200 ml Output Urine Total 250 ml 225 ml 200 ml # Bowel Movements 0 2 0 . Laboratory Tests Test 05/05/16 05/06/16 05/07/16 16:12 06:51 03:21 White Blood Count 22.5 TH/MM3 16.6 TH/MM3 16.5 TH/MM3 Red Blood Count 2.56 MIL/MM3 1.95 MIL/MM3 3.05 MIL/MM3 Hemoglobin 9.1 GM/DL 7.1 GM/DL 10.6 GM/DL Bedside Hemoglobin 9.9 G/DL Hematocrit 29.4 % 22.8 % 32.5 % Bedside Hematocrit 29.0 % Mean Corpuscular Volume 115.0 FL 116.6 FL 106.5 FL Mean Corpuscular Hemoglobin 35.8 PG 36.2 PG 34.6 PG Mean Corpuscular Hemoglobin 31.1 % 31.0 % 32.5 % Concent Red Cell Distribution Width 16.7 % 17.4 % 20.6 % Platelet Count 87 TH/MM3 76 TH/MM3 61 TH/MM3 Mean Platelet Volume 9.1 FL 9.4 FL 10.0 FL Neutrophils (%) (Auto) 81.1 % 84.7 % 84.7 % Lymphocytes (%) (Auto) 12.3 % 9.5 % 10.0 % Monocytes (%) (Auto) 5.3 % 4.0 % 3.7 % Eosinophils (%) (Auto) 0.3 % 0.9 % 0.6 % Basophils (%) (Auto) 1.0 % 0.9 % 1.0 % Neutrophils # (Auto) 18.3 TH/MM3 14.1 TH/MM3 14.0 TH/MM3 Lymphocytes # (Auto) 2.8 TH/MM3 1.6 TH/MM3 1.7 TH/MM3 Monocytes # (Auto) 1.2 TH/MM3 0.7 TH/MM3 0.6 TH/MM3 Eosinophils # (Auto) 0.1 TH/MM3 0.1 TH/MM3 0.1 TH/MM3 Basophils # (Auto) 0.2 TH/MM3 0.1 TH/MM3 0.2 TH/MM3 CBC Comment AUTO DIFF AUTO DIFF AUTO DIFF Differential Total Cells 100 100 100 Counted Neutrophils % (Manual) 76 % 64 % 70 % Band Neutrophils % 4 % 20 % 20 % Lymphocytes % 4 % 4 % 3 % Monocytes % 4 % 4 % 4 % Neutrophils # (Manual) 20.5 TH/MM3 14.9 TH/MM3 15.2 TH/MM3 Metamyelocytes 8 % 4 % 2 % Myelocytes 2 % 2 % Promyelocytes 1 % Nucleated Red Blood Cells 37 /100 WBC 51 /100 WBC 17 /100 WBC Differential Comment FINAL DIFF FINAL DIFF FINAL DIFF MANUAL MANUAL MANUAL Plasma Cells 1 % Platelet Estimate LOW LOW LOW Platelet Morphology Comment NORMAL ENLARGED NORMAL Ovalocytes 1+ [place] Bodies PRESENT Eosinophils % 1 % Basophils % 1 % 1 % Polychromasia 2.0 % 2.0 % Basophilic Stippling FAINT Acanthocytes OCC Red Cell Morphology Comment Laboratory Tests Test 05/05/16 05/05/16 05/06/16 05/06/16 16:12 21:46 06:01 06:31 Bedside Sodium 153 MMOL/L Sodium Level 154 MEQ/L 154 MEQ/L 154 MEQ/L Bedside Potassium 4.0 MMOL/L Potassium Level 4.0 MEQ/L 4.1 MEQ/L 3.5 MEQ/L Bedside Chloride 120 MMOL/L Chloride Level 123 MEQ/L 123 MEQ/L 122 MEQ/L Carbon Dioxide Level 23.4 MEQ/L 21.8 MEQ/L 22.3 MEQ/L Anion Gap 8 MEQ/L 9 MEQ/L 10 MEQ/L Bedside Blood Urea Nitrogen 23 MG/DL Blood Urea Nitrogen 25 MG/DL 21 MG/DL 16 MG/DL Creatinine 1.05 MG/DL 1.07 MG/DL 0.88 MG/DL Bedside Creatinine 0.9 MG/DL Estimat Glomerular Filtration 71 ML/MIN 70 ML/MIN 87 ML/MIN Rate Bedside Glucose 107 MG/DL Random Glucose 102 MG/DL 98 MG/DL 114 MG/DL Calcium Level 8.5 MG/DL 7.9 MG/DL 8.0 MG/DL Total Creatine Kinase 114 U/L Troponin I 0.03 NG/ML Vitamin B12 Level GREATER THAN 2000 PG/ML Thyroxine (T4) 4.5 MCG/DL Thyroid Stimulating Hormone 1.600 uIU/ML 3rd Gen Tumor Marker Alpha Fetoprotein 2.3 NG/ML Phosphorus Level 1.1 MG/DL Magnesium Level 2.1 MG/DL Total Bilirubin 6.0 MG/DL Direct Bilirubin 4.5 MG/DL Indirect Bilirubin 1.5 MG/DL Aspartate Amino Transf 262 U/L (AST/SGOT) Alanine Aminotransferase 114 U/L (ALT/SGPT) Alkaline Phosphatase 126 U/L Total Protein 4.4 GM/DL Albumin 2.5 GM/DL Test 05/06/16 05/07/16 05/07/16 06:51 03:21 13:06 Ammonia 30 MCMOL/L Sodium Level 152 MEQ/L Potassium Level 3.4 MEQ/L Chloride Level 119 MEQ/L Carbon Dioxide Level 21.7 MEQ/L Anion Gap 11 MEQ/L Blood Urea Nitrogen 12 MG/DL Creatinine 0.95 MG/DL Estimat Glomerular Filtration 80 ML/MIN Rate Random Glucose 146 MG/DL Calcium Level 8.8 MG/DL Phosphorus Level 1.5 MG/DL 1.5 MG/DL Magnesium Level 2.1 MG/DL Total Bilirubin 8.3 MG/DL Aspartate Amino Transf 291 U/L (AST/SGOT) Alanine Aminotransferase 125 U/L (ALT/SGPT) Alkaline Phosphatase 136 U/L Total Protein 4.8 GM/DL Albumin 2.6 GM/DL Microbiology Date/Time Procedure Status Source Growth 05/04/16 15:36 Stool Occult Blood ([facility]) - Final Complete Stool Stool HEMOCCULT POSITIVE 05/06/16 09:15 Aerobic Blood Culture - Preliminary Resulted Blood Peripheral NO GROWTH IN 1 DAY 05/06/16 09:15 Anaerobic Blood Culture - Preliminary Resulted Blood Peripheral NO GROWTH IN 1 DAY 05/06/16 09:25 Aerobic Blood Culture - Preliminary Resulted Blood Peripheral NO GROWTH IN 1 DAY 05/06/16 09:25 Anaerobic Blood Culture - Preliminary Resulted Blood Peripheral NO GROWTH IN 1 DAY 05/06/16 10:15 Gram Stain - Final Resulted Sputum Nasal Tracheal Aspirate 05/06/16 10:15 Sputum Culture - Preliminary Resulted Sputum Nasal Tracheal Aspirate HEAVY GROWTH NORMAL RESPIRATORY BRANDT... Imaging Neck CTA 05/05/16 0000 Signed Impressions: Service Date/Time: Thursday, May 05, 2016 17:15 - CONCLUSION: Bilateral carotid bifurcation atherosclerosis, mild on the right and minimal on the left. There is also mild plaque of both vertebral artery origins. No significant narrowing seen. Germain Oglesby MD Lung Scan- Nuclear Medicine 05/05/16 0000 Signed Impressions: Service Date/Time: Thursday, May 05, 2016 19:51 - CONCLUSION: Heterogeneous perfusion. Study is low probability for pulmonary embolus. Germain Oglesby MD Head CTA 05/05/16 0000 Signed Impressions: Service Date/Time: Thursday, May 05, 2016 17:15 - CONCLUSION: Intracranial arteries are within normal limits. Germain Oglesby MD Head CT 05/05/16 0000 Signed Impressions: Service Date/Time: Thursday, May 05, 2016 15:47 - CONCLUSION: Stable noncontrast head CT. No acute intracranial abnormality is identified. Germain Gamez MD Chest X-Ray 05/05/16 Signed Impressions: Service Date/Time: Thursday, May 05, 2016 10:51 - CONCLUSION: Mild streaky bibasilar airspace opacity could represent atelectasis or consolidation. Based on the current appearance and prior chest CT, atelectasis is favored. Germain Gamez MD Brain MRI 05/05/16 0000 Signed Impressions: Service Date/Time: Thursday, May 05, 2016 17:48 - CONCLUSION: No acute infarct or other acute intracranial abnormality. Motion degraded study. Germain Oglesby MD Gall Bladder Ultrasound 05/02/16 0000 Signed Impressions: Service Date/Time: Monday, May 02, 2016 16:32 - CONCLUSION: Minimal debris in the gallbladder with normal common duct. I do not see ancillary signs of acute cholecystitis. Mild fatty replacement to the liver. Jarad Alejandra MD FACR Head CT 05/01/16 1358 Signed Impressions: Service Date/Time: April 15:14 - CONCLUSION: Normal examination. Doe Foote MD Chest X-Ray 05/01/16 1355 Signed Impressions: Service Date/Time: , May 01, 2016 14:28 - CONCLUSION: Normal examination. Numerous healed left-sided rib fractures. Doe Foote MD Chest CT 05/01/16 0000 Signed Impressions: Service Date/Time: , May 01, 2016 15:18 - CONCLUSION: Some atelectasis both lung bases. Markedly fatty liver. Doe Foote MD Abdomen/Pelvis CT 05/01/16 0000 Signed Impressions: Service Date/Time: April 15:18 - CONCLUSION: The gallbladder hss markedly dense contents may be related to iodinated contrast. The liver is markedly fatty. No evidence of free fluid or solid organ mass. Bladder wall is mildly thickened without focal mass. Doe Foote MD Physical Exam GENERAL: Awakens easily, following all commands, has a moist and weak cough, on FM, NAD SKIN: Cool and moist. Has jaundice. No generalized rash or ecchymosis. HEAD: Atraumatic. Normocephalic. No temporal or scalp tenderness. EYES: [place] conjunctivae. Has scleral icterus. No injection or drainage. ENT: Nose without bleeding, or purulent drainage. Dry oral mucosa, poor dentition. NECK: Trachea midline. No JVD or lymphadenopathy. Supple, nontender, no meningeal signs. CARDIOVASCULAR: Regular rate and rhythm without murmurs, gallops, or rubs. RESPIRATORY: Decreased BS whole lung castro, bilaterally GASTROINTESTINAL: Abdomen soft, nondistended, bowel sounds are present and hypoactive. Large liver. Not tender MUSCULOSKELETAL: Extremities without clubbing, cyanosis. Has more pedal edema. No calf tenderness. NEUROLOGICAL: Awake, following. No focal deficits LINE: PIV with no evidence of infection PSYCH: cooperative : tinsley in place Assessment & Plan Remarks IMPRESSION Sepsis, has lethargy, fever, acidosis, tachycardia, concern with aspiration PNA - has weak moist cough - no evidence of cholecystitis on US - has most likely ETOH hepatitis Known ETOH abuse Encephalopathy due to sepsis, liver disease ETOH hepatitis Leukocytosis, better One (+) BC with Staph auricularis, likely contaminant Fevers RECOMMENDATION Change Zosyn to Cefepime Continue Vancomycin Follow C/S Monitor temps Follow CBC Monitor progress D/W Mireya Link MD May 07, 2016 15:04
--- NOTE | 2016-05-07 15:15 | HHI.GIFU ---
Subjective Remarks Resting in bed. Pt extremely lethargic, confused. Objective Vitals I&O Vital Signs Date Time Temp Pulse Resp B/P Pulse Ox O2 Delivery O2 Flow Rate FiO2 05/07/16 09:58 94 Venturi Mask 50 05/07/16 06:00 91 05/07/16 04:00 93 05/07/16 04:00 101.4 93 30 99/61 92 05/07/16 02:00 92 05/07/16 00:00 99.3 89 26 101/56 90 05/07/16 00:00 89 05/06/16 22:00 95 05/06/16 20:00 98.4 87 28 99/59 97 05/06/16 20:00 87 05/06/16 19:31 96 Venturi Mask 6.00 50 05/06/16 16:00 98.9 84 24 99/59 96 I/O 05/06/16 05/06/16 05/06/16 05/07/16 05/07/16 05/07/16 07:00 15:00 23:00 07:00 15:00 23:00 Intake Total 2150 ml 2050 ml 1518 ml 1691 ml Output Total 325 ml 250 ml 225 ml 200 ml Balance 1825 ml 1800 ml 1293 ml 1491 ml IV Total 1150 ml 1550 ml 750 ml 1191 ml Tube Feeding 300 ml Albumin 1000 ml 500 ml Packed Cells 768 ml Tube Irrigant 200 ml Output Urine Total 325 ml 250 ml 225 ml 200 ml # Bowel Movements 1 0 2 0 Laboratory Laboratory Tests Test 05/07/16 05/07/16 05/07/16 05/07/16 03:21 03:50 05:43 13:06 White Blood Count 16.5 Red Blood Count 3.05 Hemoglobin 10.6 Hematocrit 32.5 Mean Corpuscular Volume 106.5 Mean Corpuscular Hemoglobin 34.6 Mean Corpuscular Hemoglobin 32.5 Concent Red Cell Distribution Width 20.6 Platelet Count 61 Mean Platelet Volume 10.0 Neutrophils (%) (Auto) 84.7 Lymphocytes (%) (Auto) 10.0 Monocytes (%) (Auto) 3.7 Eosinophils (%) (Auto) 0.6 Basophils (%) (Auto) 1.0 Neutrophils # (Auto) 14.0 Lymphocytes # (Auto) 1.7 Monocytes # (Auto) 0.6 Eosinophils # (Auto) 0.1 Basophils # (Auto) 0.2 CBC Comment AUTO DIFF Differential Total Cells 100 Counted Neutrophils % (Manual) 70 Band Neutrophils % 20 Lymphocytes % 3 Monocytes % 4 Basophils % 1 Neutrophils # (Manual) 15.2 Metamyelocytes 2 Nucleated Red Blood Cells 17 Differential Comment FINAL DIFF MANUAL Platelet Estimate LOW Platelet Morphology Comment NORMAL Polychromasia 2.0 Sodium Level 152 Potassium Level 3.4 Chloride Level 119 Carbon Dioxide Level 21.7 Anion Gap 11 Blood Urea Nitrogen 12 Creatinine 0.95 Estimat Glomerular Filtration 80 Rate Random Glucose 146 Calcium Level 8.8 Phosphorus Level 1.5 1.5 Magnesium Level 2.1 Total Bilirubin 8.3 Aspartate Amino Transf 291 (AST/SGOT) Alanine Aminotransferase 125 (ALT/SGPT) Alkaline Phosphatase 136 Total Protein 4.8 Albumin 2.6 Blood Gas Puncture Site RT RADIAL Blood Gas Patient Temperature 98.6 Blood Gas HCO3 20 Blood Gas Base Excess -5.5 Blood Gas Oxygen Saturation 89 Arterial Blood pH 7.30 Arterial Blood Partial 41 Pressure CO2 Arterial Blood Partial 66 Pressure O2 Arterial Blood Oxygen Content 12.9 Arterial Blood 1.7 Carboxyhemoglobin Arterial Blood Methemoglobin 0.9 Blood Gas Hemoglobin 10.2 Oxygen Delivery Device VENTI MASK Blood Gas Liter Flow 6 Blood Gas Inspired Oxygen 50 Vancomycin Level Trough 17.0 Date/Time Procedure Status Source Growth 05/06/16 10:15 Gram Stain - Final Resulted Sputum Nasal Tracheal Aspirate 05/06/16 10:15 Sputum Culture - Preliminary Resulted Sputum Nasal Tracheal Aspirate HEAVY GROWTH NORMAL RESPIRATORY BRANDT... 05/06/16 09:25 Aerobic Blood Culture - Preliminary Resulted Blood Peripheral NO GROWTH IN 1 DAY 05/06/16 09:25 Anaerobic Blood Culture - Preliminary Resulted Blood Peripheral NO GROWTH IN 1 DAY 05/04/16 15:36 Stool Occult Blood ([facility]) - Final Complete Stool Stool HEMOCCULT POSITIVE 05/02/16 18:10 Aerobic Blood Culture - Final Complete Blood Arterial Line NO GROWTH IN 5 DAYS 05/02/16 18:10 Anaerobic Blood Culture - Final Complete Blood Arterial Line NO GROWTH IN 5 DAYS Imaging Last Impressions Neck CTA 05/05/16 0000 Signed Impressions: Service Date/Time: Thursday, May 05, 2016 17:15 - CONCLUSION: Bilateral carotid bifurcation atherosclerosis, mild on the right and minimal on the left. There is also mild plaque of both vertebral artery origins. No significant narrowing seen. Germain Oglesby MD Lung Scan-VQ Nuclear Medicine 05/05/16 Signed Impressions: Service Date/Time: Thursday, May 05, 2016 19:51 - CONCLUSION: Heterogeneous perfusion. Study is low probability for pulmonary embolus. Germain Oglesby MD Head CTA 05/05/16 Signed Impressions: Service Date/Time: Thursday, May 05, 2016 17:15 - CONCLUSION: Intracranial arteries are within normal limits. Germain Oglesby MD Head CT 05/05/16 Signed Impressions: Service Date/Time: Thursday, May 05, 2016 15:47 - CONCLUSION: Stable noncontrast head CT. No acute intracranial abnormality is identified. Germain Gamez MD Chest X-Ray 05/05/16 Signed Impressions: Service Date/Time: Thursday, May 05, 2016 10:51 - CONCLUSION: Mild streaky bibasilar airspace opacity could represent atelectasis or consolidation. Based on the current appearance and prior chest CT, atelectasis is favored. Germain Gamez MD Brain MRI 05/05/16 Signed Impressions: Service Date/Time: Thursday, May 05, 2016 17:48 - CONCLUSION: No acute infarct or other acute intracranial abnormality. Motion degraded study. Germain Oglesby MD Gall Bladder Ultrasound 05/02/16 Signed Impressions: Service Date/Time: Monday, May 02, 2016 16:32 - CONCLUSION: Minimal debris in the gallbladder with normal common duct. I do not see ancillary signs of acute cholecystitis. Mild fatty replacement to the liver. Jarad Alejandra MD FACR Chest CT 05/01/16 Signed Impressions: Service Date/Time: April 15:18 - CONCLUSION: Some atelectasis both lung bases. Markedly fatty liver. Doe Foote MD Abdomen/Pelvis CT 05/01/16 Signed Impressions: Service Date/Time: April 15:18 - CONCLUSION: The gallbladder hss markedly dense contents may be related to iodinated contrast. The liver is markedly fatty. No evidence of free fluid or solid organ mass. Bladder wall is mildly thickened without focal mass. Doe Foote MD Physical Exam HEENT: Normocephalic; atraumatic; + jaundice. CHEST: Scattered rhonchi CARDIAC: RRR ABDOMEN: Soft, nondistended, nontender; hepatosplenomegaly; bowel sounds are present in all four quadrants. Ascites. EXTREMITIES: Genealized edema. SKIN: Normal; no rash; + jaundice. [employer] TERMINAL OPERATOR: Lethargic, follows commands. Oriented to self only Assessment and Plan Plan ASSESSMENT: - Elevated LFTs. Abdomen/Pelvis CT (05/01/16)-------> The gallbladder has markedly dense contents may be related to iodinated contrast. The liver is markedly fatty. No evidence of free fluid or solid organ mass. Bladder wall is mildly thickened without focal mass. Gall Bladder Ultrasound (05/02/16)---> Minimal debris in the gallbladder with normal common duct. I do not see ancillary signs of acute cholecystitis. Mild fatty replacement to the liver. Hepatitis profile negative. DAFNE negative. AMA 29.4. ASMA negative. Celiac workup negative. Alpha 1 Antitrypsin 175, Ceruloplasmin 27. Ferritin 967, Iron Saturation 90.5 %. Hfe pending. Pt with persistent elevation of LFTs. T. Bili 8.3, AST 291, ALT 125, Alk phosph 136. - Elevated Ammonia. Lactulose. Lethargic, but oriented to self and place. Ammonia 30. - Anemia. Dropped to 7.1/22.8. 10.6/32.5 after 2 units. Melena. - Coagulopathy, Thrombocytopenia. Stable. - SIRS- elevated lactic acid, hypoxemia, tachycardiac T max 101.4. Cefepime - Acute renal failure. Improved. - Dysphagia. ST following, recommended NPO. Plan: - NGT - Jevity 1.5 at 65cc/hr - Await Hfe Gene - Monitor labs - Supportive care - Pt likely with underlying cirrhosis, LFTs remain elevated. Continues to be encephalopathic, Now with melena. Children consider DNR. Pt with overall poor prognosis. Will consult palliative care for clarification of goals. - Patient seen and examined by Dr. Espinal and myself and this note is written on his behalf. Georgia Oconnell May 07, 2016 15:15
[2016-05-07] MEDS ORDERED: CEFEPIME INJ 2,000 MG in SODIUM CHLORIDE 0.9% INJ 100 ML IV SCH (16:00)
[2016-05-08] VITALS: BP 62/41; PULSE 89; RESP 29; TEMP 101.1; O2SAT 94
[2016-05-08] MEDS: NOREPINEPHRINE 4 MG/D5W 250 ML IV SCH (03:13)
[2016-05-08] MEDS ORDERED: SODIUM BICARBONATE 8.4% INJ 100 MEQ in DEXTROSE 5% IN WATE 1000ML INJ 1,000 ML IV SCH ×2 (09:30)
[2016-05-08 18:15] LABS: HEREDITARY HEMOCHROM SPECIMEN WB Whole Blood (())
--- NOTE | 2016-08-13 23:44 | HHI.DS ---
Summary Note Date of : May 08, 2016 Time Of : 0154 Admission Date May 01, 2016 at 16:49 Admitting Diagnosis Lactic acidosis, encephalopathy Diagnosis at Time of : (1) Encephalopathy ICD Code: G93.40 (2) Unresponsive episode ICD Code: R41.89 (3) SIRS (systemic inflammatory response syndrome) ICD Code: R65.10 (4) Transaminitis ICD Code: R74.0 (5) Lactic acidosis ICD Code: E87.2 (6) Hyperammonemia ICD Code: E72.20 (7) ALY (acute kidney injury) ICD Code: N17.9 (8) Hypernatremia ICD Code: E87.0 (9) Leukocytosis ICD Code: D72.829 Procedures None Brief History 65-year-old male with alcohol and tobacco abuse but no diagnosed past medical history, presents as a Germain [place] after being found down in his home today. Per EMS, 911 was called as bystanders looked into the patient's mobile home, saw the patient on his couch, unresponsive, and his father was also unresponsive on the floor. Upon EMS arrival, patient initially unresponsive with pulse ox 75%, BP 74/52. He was given IVF boluses and placed on nonrebreather. Since his arrival to the ER, his mentation has been waxing/waning, current he is awake, alert, but oriented to person/place only, not date/month/year. He reports his name is Marcelino Munroe . : 1950. He reports he came to the hospital because he kept falling down which started on Friday 04/28. Denies hitting his head. Denies loss of consciousness. Denies any headache or blurred vision. He reports some mild shortness of breath, but denies chest pain. Denies any nausea/ vomiting/abdominal pain/diarrhea constipation. He states he's been eating well prior to arrival. His last drink was Sunday 04/30, had 3-4 beers. The patient has no other medical complaints at this time. Imaging Last [address] 05/05/16 0000 Signed Impressions: Service Date/Time: Thursday, May 05, 2016 15:47 - CONCLUSION: Stable noncontrast head CT. No acute intracranial abnormality is identified. Germain Gamez MD Chest X-Ray 05/05/16 0000 Signed Impressions: Service Date/Time: Thursday, May 05, 2016 10:51 - CONCLUSION: Mild streaky bibasilar airspace opacity could represent atelectasis or consolidation. Based on the current appearance and prior chest CT, atelectasis is favored. Germain Gamez MD Hospital Course 65-year-old male, brought to the hospital after he was found unresponsive in his mobile home. He was hypotensive, with low oxygen saturation, and was unresponsive. In the ED he had a normal white count, and was afebrile. Chest x -ray showed some atelectasis. CT of the chest did not show any significant abnormality. CT of the abdomen and pelvis showed a large liver, gallbladder with some sludge or contrast, and some basilar infiltrates. He was admitted on nasal O2 however rapid response team was called due to patient's hypoxemia and hypotension. During the assessment he was found to have a right facial droop and the call was changed to stroke alert. He had a negative CT of the head and is now admitted to ICU with low level of consciousness lethargy and hypoxemia. He apparently was more awake yesterday, and is lethargic today again. His LFTs and ammonia level were markedly elevated. 05/07 Patient is followed by gastroenterology specialist through the hospital course. Patient with underlying cirrhosis, LFTs remain elevated. Continues to be encephalopathic, Now with melena. Children expressed their wishes to to place an order DNR on the chart. Pt with overall extremely poor prognosis poor prognosis. 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
== END 2016-05-08 01:54 | disposition expired | DRG 871 ==
LOC: NEPC 13:47 → EDBD 16:49 → NEDA 16:49 → NEDH 21:21 → HCIN 05-02 02:56 → HIMW 05-05 16:00
PROVIDERS: ADMIT Internal Medicine Critical Care Medicine; ATTEND Internal Medicine Critical Care Medicine
PROC: 0T9B70Z Drainage of Bladder with Drainage Device, Via Natural or Artificial Opening (ICD-10-PCS; principal; 2016-05-04)
PROC: 30233N1 Transfusion of Nonautologous Red Blood Cells into Peripheral Vein, Percutaneous Approach (ICD-10-PCS; 2016-05-06)
DX: A41.9 Sepsis, unspecified organism (principal); G93.40 Encephalopathy, unspecified; E87.2 Acidosis; N17.9 Acute kidney failure, unspecified; E87.0 Hyperosmolality and hypernatremia; R13.10 Dysphagia, unspecified; D68.4 Acquired coagulation factor deficiency; J98.11 Atelectasis; K92.1 Melena; K70.10 Alcoholic hepatitis without ascites; K72.90 Hepatic failure, unspecified without coma; F17.210 Nicotine dependence, cigarettes, uncomplicated; R06.82 Tachypnea, not elsewhere classified; R74.0 Nonspecific elevation of levels of transaminase and lactic acid dehydrogenase [LDH]; R09.02 Hypoxemia; R29.6 Repeated falls; D53.9 Nutritional anemia, unspecified; K76.0 Fatty (change of) liver, not elsewhere classified; R29.810 Facial weakness; E86.0 Dehydration; Z82.3 Family history of stroke; Z80.7 Family history of other malignant neoplasms of lymphoid, hematopoietic and related tissues; R33.9 Retention of urine, unspecified; I10 Essential (primary) hypertension; K74.60 Unspecified cirrhosis of liver
CPT/HCPCS: 36430; 36600; 70450; 70496; 70498; 70551; 71010; 71250; 74176; 76705; 76937; 78582; 80048; 80053; 80074; 80076; 80202; 80307; 80320; 81001; 81256; 82103; 82105; 82140; 82272; 82390; 82435; 82550; 82565; 82607; 82728; 82805; 82947; 82948; 83516; 83520; 83540; 83550; 83605; 83690; 83735; 84100; 84132; 84295; 84436; 84443; 84484; 84520; 85007; 85027; 85384; 85610; 85730; 86038; 86256; 86403; 86850; 86900; 86901; 86920; 87040; 87070; 87077; 87186; 87205; 87641; 87804; 93005; 93306; 94150; 94640; 94664; 94667; 94668; 95819; 96365; 96366; A9540; A9567; C9113; J0692; J2543; J2930; J3370; J3411; J3480; J7030; J7040; J7050; J7070; P9016; P9045; Q9967